=== PATIENT | female | born 1945 | race Caucasian/White ===

== ENCOUNTER 2018-01-30 07:25 | Outpatient (CLI) | payer MEDICARE, SELFPAY ==
[2018-01-30] VITALS (11 sets, daily range): BP systolic 102–157; BP diastolic 46–80; PULSE 64–81; RESP 16–18; TEMP 36.4; O2SAT 99–100
--- NOTE | 2018-01-30 07:27 | DI.RAD.S_ITS ---
PROCEDURE: PAIN L/SI FACET INJ/BLK 1STL INDICATIONS: Bilateral L3/4, L4/5 facet inj, scoli w/Facet Arthropathy FINDINGS: Fluoroscopic spot filming was performed to verify placement of spinal needles at the L3-4 and L4-5 level(s), as labeled on the films. Appropriate location(s) of the needle tip(s) was confirmed by injection of iodinated contrast. IMPRESSION: Image documentation of needle injections at L3-4 and L4-5. Dictated by: Lui Lagunas M.D. on 01/30/2018 at 16:20 Approved by: Lui Lagunas M.D. on 01/30/2018 at 16:21
--- NOTE | 2018-01-30 08:08 | PM.PROC.1 ---
Procedures Date/Time Date of procedure: 01/30/18 Time of procedure: 08:08 General Procedure description: PREOP DIAGNOSIS 1. FACET ARTHROPATHY 2. AXIAL LBP 3. MULTILEVEL DDD POST OP DIAGNOSIS 1. FACET ARTHROPATHY 2. AXIAL LBP 3. MULTILEVEL DDD PROCEDURES 1. FLUORSCOPICALLY GUIDED CONTRAST CONTROLLED FACET JOINT INJECTIONS BILATERAL L3/4, L4/5 PHYSICIAN: Juan Carlos Rosario DO INDICATIONS: is referred by Dr. Cunha for treatment of Axial LBP FINDINGS Multilevel Facet Arthropathy with Clinically significant axial LBP DESCRIPTION OF PROCEDURE Fluoroscopically guided, contrast-controlled bilateral L3/4, L4/5 facet joint injections. Following denial of allergy and review of potential side effects and complications, including, but not necessarily limited to, infection, allergic reaction, local tissue breakdown, stroke, temporary or permanent nerve injury, paralysis, and possible , the patient indicated that the patient understood and agreed to proceed. An informed consent document was signed by the patient, witnessed by a nurse, and placed in the patient's chart. Additionally, other treatment options including medications, modalities, and physical therapy were reviewed with the patient. Per the patient request, IV conscious sedation was administered via 4mg of Versed to patient comfort. The patient's vital signs were monitored throughout the procedure by both the nurse and the physician without significant fluctuation. The patient remained conversant throughout the procedure. In the prone position, following sterile prep and drape of the lumbar region, the posterior aspect of the L3/4, L4/5 facet joints were identified fluoroscopically. The skin was anesthetized via a 25-gauge 1.5-inch needle with 1% lidocaine solution into the corresponding facet joints. At this point, a 22-gauge 3.5-inch spinal needle was atraumatically introduced and advanced under fluoroscopic guidance into the corresponding facet joints. Following negative aspiration, injections of approximately 0.2-cc of Isovue 200 confirmed interarticular placement without vascular uptake. The identical procedure was then performed at the L3/4, L4/5 facet joints on the left. Radiological data, including multiple fluoroscopic views of the lumbosacral spine, reveal a spinal needle at the L3/4, L4/5 facet joints bilaterally. Subsequent views show flow of contrast material both superiorly and inferiorly within the joint space without vascular or intrathecal uptake. At this point, a total of 0.5 cc including a mixture of 0.25 cc Marcaine and 0.25 cc betamethasone was injected without complication into each of the corresponding facet joints. The patient was then transferred to the recovery area where they were observed for an appropriate period of time after the injection. The patient reported a VAS score of 7 prior to the procedure and a post-procedure VAS of 0. Total Fluoroscopy Time: 29 seconds Total Conscious Sedation Time: 24min POST OP INSTRUCTIONS The patient was provided a Pain Log to continue to record their response to the target-specific procedure prior to follow-up visit with their referring physician. Additionally, specific post-injection care instructions and a contact number to our office were provided if concerns arise regarding possible complications associated with the procedure are suspected. Juan Carlos Rosario, Complications: none
[2018-01-30] MEDS: IOPAMIDOL 15 ML VIAL INJ (08:44)
[2018-01-30] MEDS: BETAMETHASONE 30 MG/5 ML MDV 12 MG INJ (08:44)
[2018-01-30] MEDS: BUPIVACAINE 0.25% (PF) 30 ML VIAL 5 ML INJ (08:44)
[2018-01-30] MEDS: LIDOCAINE 1% 20 ML INJ 10 ML INJ (08:44)
[2018-01-30] MEDS: MIDAZOLAM 5 MG/5 ML VIAL IV (09:22)
== END 2018-01-30 09:35 ==
PROVIDERS: PCP Family Medicine; Visit Provider Physical Medicine & Rehabilitation
DX: M41.26 Other idiopathic scoliosis, lumbar region (principal); M47.816 Spondylosis without myelopathy or radiculopathy, lumbar region; M51.36 Other intervertebral disc degeneration, lumbar region
CPT/HCPCS: 64493; 99152; 99153; J0702; J2250

== ENCOUNTER → 2018-02-26 08:59 | Outpatient (CLI) | payer MEDICARE, SELFPAY ==
[2018-02-26 11:30] LABS: Vitamin B12 595 pg/mL (239-931)
[2018-02-28 22:29] LABS: Albumin 3.4 g/dL (3.8-4.8); Alpha 1 Globulin 0.4 g/dL (0.2-0.3); Alpha 2 Globulin 0.8 g/dL (0.5-0.9); Beta 1 Globulin 0.4 g/dL (0.4-0.6); Gamma Globulin 0.7 g/dL (0.8-1.7); Protein, Total 6.1 g/dL (6.1-8.1)
[2018-03-04 14:17] LABS: Rapid Plasma Reagin NON-REACTIVE
== END ==
PROVIDERS: PCP Family Medicine; Visit Provider Psychiatry & Neurology Neurology
DX: R20.2 Paresthesia of skin (principal); M79.609 Pain in unspecified limb
CPT/HCPCS: 36415; 82607; 84155; 84165; 86592

== ENCOUNTER 2018-03-13 08:23 | Day surgery (SDC) | payer MEDICARE, SELFPAY ==
--- NOTE | 2018-03-08 17:20 | PM.PREOP ---
Pre-operative Note Interval Note Pre-op Check: History & Physical Reviewed by Physician
[2018-03-13 09:23] VITALS: BP 155/65; PULSE 96; RESP 16; TEMP 36.7; O2SAT 98
[2018-03-13 09:24] VITALS: BMI 18.1
[2018-03-13] MEDS: CATARACT EYE COMPOUND (10 DROPS/SYRINGE) 3 DROPS EYE-OP (09:44)
--- NOTE | 2018-03-13 10:09 | PM.PREOP ---
Pre-operative Note Interval Note Pre-op Check: History & Physical Reviewed by Physician H&P completed within 30 days and has changed as indicated here:: Had left sinus and eye pain two days ago and started on Azithromycin 250 milligrams twice the first day and now daily. Is on day number 3 of 5 days. Symptoms improved. Has multiple allegies.
[2018-03-13] MEDS: CARBACHOL 1.5 ML VIAL INJ (10:42)
[2018-03-13] MEDS: BALANCED SALT IRRIG SOLN NO.2 15 ML IRRIG.SOLN IRR (10:42)
[2018-03-13] MEDS: CHONDROIDTIN/SOD HYALURONATE 1.05 ML SYRINGE INTRAOCULA (10:43)
[2018-03-13] MEDS: PHENYLEPHRINE/LIDOCAINE 3ML VIAL (OR) EYE-OP (10:43)
[2018-03-13] MEDS: HYALURONATE SODIUM 10 MG/ML SYRINGE INJ (10:43)
[2018-03-13] MEDS: BALANCED SALT IRRIG SOLN NO.2 500 ML, EPINEPHrine 1 MG IRR (10:44)
[2018-03-13] MEDS: MOXIFLOXACIN OPHTH DROPS 3 ML BOTTLE 2 DROPS INJ (10:51)
[2018-03-13] MEDS: TOBRA/DEX 0.3%/0.1% OPHTH OINT 1 APPLIC EYE-LEFT (10:51)
[2018-03-13] MEDS: LIDOCAINE 2% 4 ML, BUPIVACAINE 0.5% (PF) 4 ML, HYALURONIDASE 150 UNIT INJ (10:52)
[2018-03-13] MEDS: TRIAMCINOLONE 50 MG/5 ML VIAL INJ (10:52)
[2018-03-13 11:11] VITALS: BP 144/69; PULSE 68; RESP 16; TEMP 36; O2SAT 100
--- NOTE | 2018-03-13 11:26 | SUR.PHASEII ---
Remains drowsy on discharge, but desires discharge home. Daughter and here to assist.
--- NOTE | 2018-03-13 20:34 | PM.PROC.1 ---
Procedures Date/Time Date of procedure: 03/13/18 Time of procedure: 10:34 General Procedure description: Date of service: March 13, 2000 Preoperative diagnoses: 1. 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 Atypica mycobacterial infection of the lung, treated with long course of ethambutol. 3. Childhood rheumatic fever Multiple severe allergies especially to preservatives. 5. Trigeminal neuralgia. 6. Possible sinus infection treated. Postoperative diagnoses: 1. Cataract surgery posterior chamber intraocular lens implant and phacoemulsification. Procedure: Phacoemulsification with posterior chamber intraocular lens implant Surgeon: Nava Martinez MD Complications: None Specimen: None Implant: +21.5 Blood loss: None Anesthesia: Retrobulbar with monitored standby Anesthesiologist: Delia Brian Description of procedure: Patient is a 72 year old female with decreased vision due to cataract which is affecting activities of daily living. She wants surgery to improve vision. She has multiple and severe allergies in all charts reviewed and it was determined that she could tolerate the medications to be given in surgery. She has taken to the operating room and given IV sedation. A retrobulbar block insert consisting of 6 cc of 2% xylocaine without epinephrine or preservatives mixed half and half with 0.5% Marcaine PF with 1 cc of hyaluronidase added is placed between the medial and lateral 1/3 of the inferior orbital rim. Lid akinesia is obtain with 1% xylocaine with epinephrine infiltrated along the lid margin. The eye is manually massaged for 30 sec, prepped using Betadine solution, and draped in the usual sterile fashion. Temporal approach was made, a 1 mm side-port incision was made at the 12 oclock meridian. Phenylephrine 1.5% mixed with 1% xylocaine 0.2 cc was placed into the anterior chamber. Viscoat followed by Healon was then placed. A 2.6 mm clear incision with a 2.6 mm blade was placed at the 3 oclock meridian. A 360 degree capsulorrhexis style capsulotomy was then performed with a cystitome needle on a Healon. the anterior polar plaque was lifted and the capsulrhexis remained intact. Hydrodelineation and hydrodissection were performed. The phacoemulsification unit is introduced, and sculpting notice used to groove the central lens. It is then removed in chopping mode. Epi nucleus is removed with epinuclear mode and irrigation aspiration was used to remove the peripheral cortex. No capsular polishing was performed due to risk of posterior polar plaque. The intraocular lens is selected, inspected, power confirmed, and placed in the posterior chamber. All residual cortex is then removed with the implant in place to protect the capsule. The pupil was constricted. The wound was stromally hydrated and tested for leaks, there was none and was left sutureless. Vigamox 0.1 cc was placed into the anterior chamber. Kenalog 0.2 cc was placed in the superior subconjunctival space. A drop of antibiotic and was placed and the eye was patched and shielded. The patient was stable and returned to the recovery room in excellent condition. Dictated by: Nava Martinez MD Copy to: [facility]
== END 2018-03-13 11:31 | disposition home or self-care (01) ==
LOC: OR 08:24
PROVIDERS: PCP Family Medicine; Visit Provider Ophthalmology
DX: H25.12 Age-related nuclear cataract, left eye (principal)
CPT/HCPCS: J0171; J1200; J2704; J3301; J3470

== ENCOUNTER 2018-03-27 08:30 | Day surgery (SDC) | payer MEDICARE, SELFPAY ==
--- NOTE | 2018-03-27 07:45 | PM.PREOP ---
Pre-operative Note Interval Note Pre-op Check: Yes History & Physical Reviewed by Physician Changes: No
--- NOTE | 2018-03-27 07:47 | P.OP_ITS ---
Operative Date/Time/Diagnoses Date of procedure: 03/27/18 Time of procedure: 09:00 Procedure & Clinicians Procedure: Date of service: March 27, 2018 Preoperative diagnoses: 1. Right nuclear sclerotic and cortical Cataract, Congenital anterior polar catarat. 2. Multiple allergies Postoperative diagnoses: 1. Cataract removal with phacoemulsification and posterior chamber intraocular lens implant. Procedure: Phacoemulsification with posterior chamber intraocular lens implant Surgeon: Nava Martinez MD Complications: None Specimen: None Implant:ZCBOO +20.5 Blood loss: None Anesthesia: Retrobulbar with monitored standby Anesthesiologist: Darshan Long M.D. Description of procedure: Patient is a female year old with decreased vision due to cataract which is affecting activities of daily living. She wants surgery to improve vision. She has multiple allergies. She was taken to the operating room and given IV sedation. A retrobulbar block insert consisting of 6 cc of 2% xylocaine without epinephrine mixed half and half with 0.5% Marcaine with 1 cc of hyaluronidase added is placed between the medial and lateral 1/3 of the inferior orbital rim. The eye is manually massaged for 30 sec, prepped using Betadine solution, and draped in the usual sterile fashion. Temporal approach was made, a 1 mm side-port incision was made at the 7:30 position. Phenylephrine 1.5% mixed with 1% xylocaine 0.2 cc was placed into the anterior chamber. Viscoat followed by Healon was then placed. A 2.6 mm clear incision with a 2.6 mm blade was placed at the 170 degree meridian. A 360 degree capsulorrhexis style capsulotomy was then performed with a cystitome needle on a Healon. The anterior polar cataract came off in a complete membrane. No residual present. Hydrodelineation and hydrodissection were performed. The phacoemulsification unit is introduced, and sculpting notice used to groove the central lens. It is then removed in chopping mode. Epi nucleus is removed with epinuclear mode and irrigation aspiration was used to remove the peripheral cortex. The posterior capsule is polished mildly. No posterior polar cataract was present. The intraocular lens is selected, inspected, power confirmed, and placed in the posterior chamber. The pupil was constricted. The wound was strongly hydrated and tested for leaks, there was none [] left sutureless. Vigamox 0.1 cc was placed into the anterior chamber. Kenalog 0.2 cc was placed in the superior subconjunctival space. Tobrdadex ointment antibiotic was placed and the eye was patched and shielded. The patient was stable and returned to the recovery room in excellent condition. Dictated by: Nava Martinez MD Copy to: [facility] Same procedure as scheduled: Yes
--- NOTE | 2018-03-27 07:47 | PM.PREOP ---
Pre-operative Note Interval Note Changes: No H&P completed within 30 days and has changed as indicated here:: Multiple reactions to medications.
--- NOTE | 2018-03-27 07:48 | PM.PREOP ---
Pre-operative Note Interval Note Pre-op Check: Yes History & Physical Reviewed by Physician Changes: No H&P completed within 30 days and has changed as indicated here:: Miltiple allergies. Stable
[2018-03-27 09:00] VITALS: BP 108/69; PULSE 88; RESP 16; TEMP 36.3; O2SAT 98; BMI 18.6
[2018-03-27] MEDS: CATARACT EYE COMPOUND (10 DROPS/SYRINGE) 3 DROPS EYE-OP (09:10)
--- NOTE | 2018-03-27 09:34 | SUR.PREOP ---
pt given 2 drops of xylocaine 1% mpf to right eye per written order by Dr. Martinez at 0905
[2018-03-27] MEDS: LIDOCAINE 2% 4 ML, BUPIVACAINE 0.5% (PF) 4 ML, HYALURONIDASE 150 UNIT INJ (10:16)
[2018-03-27] MEDS: CHONDROIDTIN/SOD HYALURONATE 1.05 ML SYRINGE INTRAOCULA (10:33)
[2018-03-27] MEDS: CARBACHOL 1.5 ML VIAL INJ (10:33)
[2018-03-27] MEDS: BALANCED SALT IRRIG SOLN NO.2 15 ML IRRIG.SOLN IRR (10:33)
[2018-03-27] MEDS: MOXIFLOXACIN OPHTH DROPS 3 ML BOTTLE 2 DROPS INJ (10:36)
[2018-03-27] MEDS: PHENYLEPHRINE/LIDOCAINE 3ML VIAL (OR) EYE-OP (10:37)
[2018-03-27] MEDS: TRIAMCINOLONE 50 MG/5 ML VIAL INJ (10:39)
[2018-03-27] MEDS: BALANCED SALT IRRIG SOLN NO.2 500 ML, EPINEPHrine 1 MG IRR (10:40)
[2018-03-27] MEDS: TOBRA/DEX 0.3%/0.1% OPHTH OINT 1 APPLIC EYE-RIGHT (10:42)
[2018-03-27 12:34] VITALS: BP 133/70; PULSE 69; RESP 15; TEMP 36.3; O2SAT 98
== END 2018-03-27 11:28 | disposition home or self-care (01) ==
LOC: OR 08:31
PROVIDERS: PCP Family Medicine; Visit Provider Ophthalmology
DX: H25.11 Age-related nuclear cataract, right eye (principal)
CPT/HCPCS: J0171; J2704; J3010; J3301; J3470

== ENCOUNTER 2018-04-03 12:15 | Outpatient (RCR) | payer MEDICARE, SELFPAY ==
--- NOTE | 2018-02-07 10:28 | PT.OIE ---
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) Pelvic and perineal pain (02/05/18) Provider Visit Care Team Role Provider Type Colt Starr MD Primary Care Provider Physician Specialty: Family Practice Address: [address] [place], [address] Email: Leilani Brady MD Attending Provider Physician Specialty: BRINE ROOM LABORER Address: [address] [place] [address], [address] Email: [email or web address] Physical Therapy Initial Evaluation PT-OP-A Visit Information Start: 02/07/18 09:50 Freq: Status: Active Protocol: Document 02/05/18 09:51 [facility] (Rec: 02/07/18 10:00 [facility] [email or web address]) Out-Patient Physical Therapy Visit Information Visit Information Visit Type Initial Evaluation Visit Start Time 11:15 Visit Stop Time 12:00 Total Visit Minutes 45 Visit Number 1 Number of WELDER APPRENTICE COMBINATION Visits 0 PT-OP-B Current Condition Start: 02/07/18 09:50 Freq: Status: Active Protocol: Document 02/05/18 09:51 [facility] (Rec: 02/07/18 10:00 [facility] [email or web address]) Current Condition History of Current Condition Onset Date complaints of pelvic pain for over 1 year Current Complaints c/o pelvic pain, pressure, burning pain in the vaginal opening History of Current Condition 72 year old female who began noticing complaints of pelvic heavyness and cramping as well as burning pain in the vaginal region last april. SHe was given vaginal estrogen but notes that was not helping. SHe was seen by Dr. Brady on 12/28/17 and was given a compound formula of amitriptyline,gabapentin, baclofen, and vulvodynia cream . She reports not noticing any difference yet on this cream. 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 She notes this is her third injection and the first two gave her relief but this one actually aggravated her left leg and now she is getting nerve pain in the left leg as well. Treatment Goals Patient/Caregiver Goals the patients goals include strengthening the pelvic floor and decreasing both burning pain as well as cramping PT-OP-I Pelvic Floor Start: 02/07/18 09:50 Freq: Status: Active Protocol: Document 02/05/18 10:09 [facility] (Rec: 02/07/18 10:28 [facility] [email or web address]) Pelvic Floor Assessment Urine Pelvic Floor Surgery No Urinary Symptoms Falling Out Feeling/Heavy Pain Other Urinary Symptoms burning pain reported but does not change with voiding Pelvic Clock Pelvic Clock 12-3 Atrophy Pelvic Clock 3-6 Atrophy Pelvic Clock 6-9 Atrophy Pelvic Clock 9-12 Atrophy Pelvic Clock Other tenderness to palpation at the vestibule and external urethral orifice. There was no tenderness at the urethra with internal exam. The bladder was felt to be prolapsed. Atrophy is noted to palpation of the lateral majano of the levator ani. Prolapse Cystocele Grade 2 SEMG (uV) 10 Second Contraction 6 Recruitment Pattern Poor/Slow Relaxation Good Holding Poor/Slow Stability of Hold Poor/Slow SEMG Stability of Rest Good Contraction Ability Voluntary Contraction Weak Manual Muscle Testing Left 2 Manual Muscle Testing Right 2 Manual Muscle Testing Anterior 2 Manual Muscle Testing Posterior 2 PT-OP-Q Treatments Start: 02/07/18 09:50 Freq: Status: Active Protocol: Document 02/05/18 10:09 [facility] (Rec: 02/07/18 10:28 [facility] [email or web address]) Therapeutic Exercises Supine Exercises 2 Supine Exercise Name single knee to chest Side bilateral 1 Supine Exercise Name pelvic floor holds x 5 seconds Side bilateral Sidelying Exercises 1 Sidelying Exercise Name clam shells Side bilateral Reps/Minutes 2 sets of 10 reps PT-OP-T Assessment and Plan Start: 02/07/18 09:50 Freq: Status: Active Protocol: Document 02/05/18 10:09 [facility] (Rec: 02/07/18 10:28 [facility] [email or web address]) Physical Therapy Assessment Rehab Potential Rehabilitation Potential Good Evaluation Complexity Number of Personal Factors/Comorbidities 0 Number of Body Systems Impaired 1-2 Clinical Presentation at Evaluation Stable Impairments Impairments Activity Tolerance Pain Soft Tissue Mobility Strength Tone Goals Four Impairment Decreased endurance of the pelvic floor Short Term Goal (STG) improve endurance of the pelvic floor to 10 second hold time or greater STG Duration 5 weeks Three Impairment pelvic floor weakness with MMT 2/5 Strategic Buyer Goal (LTG) Improve strength of the levator with pelvic floor strengthening utilizing EMG biofeedback Two Impairment pelvic organ prolapse with complaints of pelvic cramping and heavyness Strategic Buyer Goal (LTG) Improve pelvic floor strength to decrease complaints of pelvic cramping and heavyness and to provide a increased shelf of support for the pelvic organs LTG Duration 8 weeks One Impairment burning pain at the vestibule region and external urethral orifice Strategic Buyer Goal (LTG) Bella reports decreased complaints of burning pain in the vaginal area LTG Duration 8 weeks Assessment Summary Assessment Bella presents to physical therapy with symptoms of pelvic organ prolapse, pelvic floor weakness and buring type pain in the vestibule region and external urethral orifice. I was unable to reproduce her pain with internal exam but with external exam she was sensitive to palpation. She is very weak in her pelvic floor and the cystocele may be contributing to her burning type pain. She also has a low back involvement and she reports she almost didn't make it to her new evaluation appointment today due to severe back pain with sciatica on the left. Treatment will focus on stretches for the low back and pelvis as well as gentle pelvic floor strengthening and neuro re- education of the pelvic floor Physical Therapy Plan Frequency and Duration Frequency of Treatment 1x/Week Duration of Treatment 8 weeks Plan of Care Start Date 02/05/18 Plan of Care End Date 03/26/18 Therapeutic Interventions Therapeutic Interventions Home Exercise Program Manual Therapy Neuromuscular Re-education Patient/Caregiver Education Soft Tissue Mobilization Therapeutic Exercises Modalities Biofeedback Hot Packs Please Sign and Return: I have reviewed this Plan of Care and certify that the skilled therapy services above are required to meet the patient?s needs. Physician Signature Date Printed Name and Credentials Clinical Instructor Signature Printed Name and Credentials
--- NOTE | 2018-02-07 10:30 | PT.OPPOC ---
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) Pelvic and perineal pain (02/05/18) Provider Visit Care Team Role Provider Type Colt Starr MD Primary Care Provider Physician Specialty: Family Practice Address: [address] [place], [address] Email: Leilani Brady MD Attending Provider Physician Specialty: HYGIENE COORDINATOR Address: [address] [place] [address], [address] Email: [email or web address] Plan Of Care PT-OP-T Assessment and Plan Start: 02/07/18 09:50 Freq: Status: Active Protocol: Document 02/05/18 10:09 [facility] (Rec: 02/07/18 10:28 [facility] [email or web address]) Physical Therapy Assessment Rehab Potential Rehabilitation Potential Good Evaluation Complexity Number of Personal Factors/Comorbidities 0 Number of Body Systems Impaired 1-2 Clinical Presentation at Evaluation Stable Impairments Impairments Activity Tolerance Pain Soft Tissue Mobility Strength Tone Goals Four Impairment Decreased endurance of the pelvic floor Short Term Goal (STG) improve endurance of the pelvic floor to 10 second hold time or greater STG Duration 5 weeks Three Impairment pelvic floor weakness with MMT 2/5 Hydrogen Power Plant Engineer Goal (LTG) Improve strength of the levator with pelvic floor strengthening utilizing EMG biofeedback Two Impairment pelvic organ prolapse with complaints of pelvic cramping and heavyness Hydrogen Power Plant Engineer Goal (LTG) Improve pelvic floor strength to decrease complaints of pelvic cramping and heavyness and to provide a increased shelf of support for the pelvic organs LTG Duration 8 weeks One Impairment burning pain at the vestiblule region and external urethral orifice Hydrogen Power Plant Engineer Goal (LTG) Bella reports decreased complaints of buring pain in the vaginal area LTG Duration 8 weeks Assessment Summary Assessment Bella presents to physical therapy with symptoms of pelvic organ prolapse, pelvic floor weakness and buring type pain in the vestibule region and external urethral orifice. I was unable to reproduce her pain with internal exam but with external exam she was sensitive to palpation. She is very weak in her pelvic floor and the cystecele may be contributing to her buring type pain. She also has a low back involvement and she reports she almost didn't make it to her new evaluation appointment today due to severe back pain with sciatica on the left. Treatment will focus on stretches for the low back and pelvis as well as gentle pelvic floor strengthening and neuro re- education of the pelvic floor Physical Therapy Plan Frequency and Duration Frequency of Treatment 1x/Week Duration of Treatment 8 weeks Plan of Care Start Date 02/05/18 Plan of Care End Date 03/26/18 Therapeutic Interventions Therapeutic Interventions Home Exercise Program Manual Therapy Neuromuscular Re-education Patient/Caregiver Education Soft Tissue Mobilization Therapeutic Exercises Modalities Biofeedback Hot Packs Plan of Care Dates Plan of Care Start Date 02/05/18 Plan of Care End Date 03/26/18 Please Sign and Return: I have reviewed this Plan of Care and certify that the skilled therapy services above are required to meet the patient?s needs. Physician Signature Date Printed Name and Credentials Clinical Instructor Signature Printed Name and Credentials
--- NOTE | 2018-02-28 17:48 | PT.OTN ---
Current Diagnoses Incomplete uterovaginal prolapse (02/27/18) Vulvodynia, unspecified (02/27/18) Pelvic and perineal pain (02/27/18) Physical Therapy Treatment Note PT-OP-A Visit Information Start: 02/07/18 09:50 Freq: Status: Active Protocol: Document 02/27/18 10:45 [facility] (Rec: 02/28/18 17:48 [facility] [email or web address]) Out-Patient Physical Therapy Visit Information Visit Information Visit Type Treatment Note Visit Start Time 10:45 Visit Stop Time 11:30 Total Visit Minutes 45 Visit Number 2 Number of MOTOR VEHICLE CLERK Visits 0 PT-OP-B Current Condition Start: 02/07/18 09:50 Freq: Status: Active Protocol: Document 02/05/18 09:51 [facility] (Rec: 02/07/18 10:00 [facility] [email or web address]) Current Condition History of Current Condition Onset Date complaints of pelvic pain for over 1 year Current Complaints c/o pelvic pain, pressure, burning pain in the vaginal opening History of Current Condition 72 year old female who began noticing complaints of pelvic heavyness and cramping as well as burning pain in the vaginal region last april. SHe was given vaginal estrogen but notes that was not helping. SHe was seen by Dr. Brady on 12/28/17 and was given a compound formula of amitriptyline,gabapentin, baclofen, and vulvodynia cream . She reports not noticing any difference yet on this cream. 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 She notes this is her third injection and the first two gave her relief but this one actually aggravated her left leg and now she is getting nerve pain in the left leg as well. Treatment Goals Patient/Caregiver Goals the patients goals include strengthening the pelvic floor and decreasing both burning pain as well as cramping PT-OP-C Subjective Start: 02/07/18 09:50 Freq: Status: Active Protocol: Document 02/27/18 10:45 [facility] (Rec: 02/28/18 17:48 [facility] [email or web address]) OP-PT Subjective Patient Comments Patient Comments Bella reports she has decreased complaints of the burning pain now. The pain is comming in twinges now but not as bad as it was. She reports it is difficult to know if she is fully relaxing inbetween pelvic floor contractions PT-OP-I Pelvic Floor Start: 02/07/18 09:50 Freq: Status: Active Protocol: Document 02/27/18 10:45 [facility] (Rec: 02/28/18 17:48 [facility] [email or web address]) Pelvic Floor Assessment SEMG (uV) Baseline 0 10 Second Contraction 9.8 Recruitment Pattern Good PT-OP-Q Treatments Start: 02/07/18 09:50 Freq: Status: Active Protocol: Document 02/27/18 10:45 [facility] (Rec: 02/28/18 17:48 [facility] [email or web address]) Therapeutic Exercises Supine Exercises 4 Supine Exercise Name hip flexion stretch in jenn test position 3 Supine Exercise Name modified squat stretch 2 Supine Exercise Name single knee to chest Side bilateral 1 Supine Exercise Name pelvic floor holds x 10 seconds Side bilateral Sidelying Exercises 1 Sidelying Exercise Name clam shells Side bilateral Reps/Minutes 2 sets of 10 reps Manual Therapy Treatment Soft Tissue Mobilization 1 Body Location abdominal fascia Comments STM of the abdominal fascia and bladder mobilizations in supine PT-OP-T Assessment and Plan Start: 02/07/18 09:50 Freq: Status: Active Protocol: Document 02/27/18 10:45 [facility] (Rec: 02/28/18 17:48 [facility] [email or web address]) Physical Therapy Assessment Assessment Summary Assessment improved resting tond of the pelvic floor today and decreasing complaints of pain Physical Therapy Plan Frequency and Duration Frequency of Treatment 1x/Week Duration of Treatment 8 weeks Plan of Care Start Date 02/05/18 Plan of Care End Date 03/26/18 Therapeutic Interventions Therapeutic Interventions Home Exercise Program Manual Therapy Neuromuscular Re-education Patient/Caregiver Education Soft Tissue Mobilization Therapeutic Exercises Modalities Biofeedback Hot Packs Next Visit Focus/Plan Next Visit Plan focus on improving pelvic floor strength to improve bladder support
--- NOTE | 2018-03-12 17:37 | PT.OTN ---
Current Diagnoses Incomplete uterovaginal prolapse (03/12/18) Vulvodynia, unspecified (03/12/18) Pelvic and perineal pain (03/12/18) Physical Therapy Treatment Note PT-OP-A Visit Information Start: 02/07/18 09:50 Freq: Status: Active Protocol: Document 03/12/18 17:28 [facility] (Rec: 03/12/18 17:36 [facility] [email or web address]) Out-Patient Physical Therapy Visit Information Visit Information Visit Type Treatment Note Visit Start Time 09:45 Visit Stop Time 10:30 Total Visit Minutes 45 Visit Number 3 Number of WASHING MACHINE REPAIRER Visits 0 PT-OP-B Current Condition Start: 02/07/18 09:50 Freq: Status: Active Protocol: Document 02/05/18 09:51 [facility] (Rec: 02/07/18 10:00 [facility] [email or web address]) Current Condition History of Current Condition Onset Date complaints of pelvic pain for over 1 year Current Complaints c/o pelvic pain, pressure, burning pain in the vaginal opening History of Current Condition 72 year old female who began noticing complaints of pelvic heavyness and cramping as well as burning pain in the vaginal region last april. SHe was given vaginal estrogen but notes that was not helping. SHe was seen by Dr. Brady on 12/28/17 and was given a compound formula of amitriptyline,gabapentin, baclofen, and vulvodynia cream . She reports not noticing any difference yet on this cream. 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 She notes this is her third injection and the first two gave her relief but this one actually aggravated her left leg and now she is getting nerve pain in the left leg as well. Treatment Goals Patient/Caregiver Goals the patients goals include strengthening the pelvic floor and decreasing both burning pain as well as cramping PT-OP-C Subjective Start: 02/07/18 09:50 Freq: Status: Active Protocol: Document 03/12/18 17:28 [facility] (Rec: 03/12/18 17:36 [facility] [email or web address]) OP-PT Subjective Patient Comments Patient Comments buring pain is decreased but she is still feeling it when her bladder is full PT-OP-I Pelvic Floor Start: 02/07/18 09:50 Freq: Status: Active Protocol: Document 02/27/18 10:45 [facility] (Rec: 02/28/18 17:48 [facility] [email or web address]) Pelvic Floor Assessment SEMG (uV) Baseline 0 10 Second Contraction 9.8 Recruitment Pattern Good PT-OP-Q Treatments Start: 02/07/18 09:50 Freq: Status: Active Protocol: Document 03/12/18 17:28 [facility] (Rec: 03/12/18 17:36 [facility] [email or web address]) Therapeutic Exercises Supine Exercises 5 Supine Exercise Name adductor stretch Comments legs up the wall hold 1-2 minutes 4 Supine Exercise Name hip flexion stretch in jenn test position 3 Supine Exercise Name modified squat stretch 2 Supine Exercise Name single knee to chest Side bilateral Manual Therapy Treatment Soft Tissue Mobilization 2 Body Location adductor release Comments bilateral adductor release 1 Body Location abdominal fascia Comments STM of the abdominal fascia and bladder mobilizations in supine PT-OP-T Assessment and Plan Start: 02/07/18 09:50 Freq: Status: Active Protocol: Document 03/12/18 17:28 [facility] (Rec: 03/12/18 17:36 [facility] [email or web address]) Physical Therapy Assessment Assessment Summary Assessment adductor tightness found today bilaterally L>R Physical Therapy Plan Frequency and Duration Frequency of Treatment 1x/Week Duration of Treatment 8 weeks Plan of Care Start Date 02/05/18 Plan of Care End Date 03/26/18 Therapeutic Interventions Therapeutic Interventions Home Exercise Program Manual Therapy Neuromuscular Re-education Patient/Caregiver Education Soft Tissue Mobilization Therapeutic Exercises Modalities Biofeedback Hot Packs Next Visit Focus/Plan Next Note Type Treatment Note Next Visit Plan focus on improving pelvic floor strength to improve bladder support
--- NOTE | 2018-03-20 11:53 | PT.OTN ---
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) Pelvic and perineal pain (03/20/18) Physical Therapy Treatment Note PT-OP-A Visit Information Start: 02/07/18 09:50 Freq: Status: Active Protocol: Document 03/20/18 11:46 [facility] (Rec: 03/20/18 11:53 [facility] [email or web address]) Out-Patient Physical Therapy Visit Information Visit Information Visit Type Progress Note Visit Start Time 10:45 Visit Stop Time 11:30 Total Visit Minutes 45 Visit Number 4 Number of ELECTRONIC PAGINATION SYSTEM OPERATOR Visits 0 PT-OP-B Current Condition Start: 02/07/18 09:50 Freq: Status: Active Protocol: Document 02/05/18 09:51 [facility] (Rec: 02/07/18 10:00 [facility] [email or web address]) Current Condition History of Current Condition Onset Date complaints of pelvic pain for over 1 year Current Complaints c/o pelvic pain, pressure, burning pain in the vaginal opening History of Current Condition 72 year old female who began noticing complaints of pelvic heavyness and cramping as well as burning pain in the vaginal region last april. SHe was given vaginal estrogen but notes that was not helping. SHe was seen by Dr. Brady on 12/28/17 and was given a compound formula of amitriptyline,gabapentin, baclofen, and vulvodynia cream . She reports not noticing any difference yet on this cream. 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 She notes this is her third injection and the first two gave her relief but this one actually aggravated her left leg and now she is getting nerve pain in the left leg as well. Treatment Goals Patient/Caregiver Goals the patients goals include strengthening the pelvic floor and decreasing both burning pain as well as cramping PT-OP-C Subjective Start: 02/07/18 09:50 Freq: Status: Active Protocol: Document 03/20/18 11:46 [facility] (Rec: 03/20/18 11:53 [facility] [email or web address]) OP-PT Subjective Patient Comments Patient Comments Bella reports she is doing much better overall. She is no longer complaining of the burning pain in the vaginal opening and she is feeling stronger with her pelvic floor muscles. She also reports she has decreased complaints of pelvic pressure. PT-OP-I Pelvic Floor Start: 02/07/18 09:50 Freq: Status: Active Protocol: Document 02/27/18 10:45 [facility] (Rec: 02/28/18 17:48 [facility] [email or web address]) Pelvic Floor Assessment SEMG (uV) Baseline 0 10 Second Contraction 9.8 Recruitment Pattern Good PT-OP-Q Treatments Start: 02/07/18 09:50 Freq: Status: Active Protocol: Document 03/20/18 11:46 [facility] (Rec: 03/20/18 11:53 [facility] [email or web address]) Therapeutic Exercises Supine Exercises 7 Supine Exercise Name templates for eccentric control and coordination Reps/Minutes 8 minutes 6 Supine Exercise Name roll outs with theraband Reps/Minutes 2 x 10 reps 4 Supine Exercise Name hip flexion stretch in jenn test position 3 Supine Exercise Name modified squat stretch 1 Supine Exercise Name pelvic floor holds x 10 seconds Side bilateral Sidelying Exercises 1 Sidelying Exercise Name clam shells Side bilateral Reps/Minutes 2 sets of 10 reps Comments tender on left hip today Manual Therapy Treatment Soft Tissue Mobilization 1 Body Location abdominal fascia Comments STM of the abdominal fascia and bladder mobilizations in supine PT-OP-T Assessment and Plan Start: 02/07/18 09:50 Freq: Status: Active Protocol: Document 03/20/18 11:46 [facility] (Rec: 03/20/18 11:53 [facility] [email or web address]) Physical Therapy Assessment Progress Towards Goals Progress Towards Goals Progressing Toward Goals Assessment Summary Assessment Bella is making steady progress towards her goals. Her EMG reading started at 5.95 uv average and is now 9.23 average for 10 second holds. She is holding closer to 10 seconds now in supine. Her complaints of burning pain is no longer present and pressure from the pelvic organ prolapse is decreasing. She would benefit from continued PT working towards dynamic upright pelvic floor strengthening. Physical Therapy Plan Frequency and Duration Frequency of Treatment 1x/Week Duration of Treatment 8 weeks Plan of Care Start Date 03/20/18 Plan of Care End Date 05/14/18 Next Visit Focus/Plan Next Note Type Treatment Note Next Visit Plan focus on improving pelvic floor strength to improve bladder support
--- NOTE | 2018-03-20 11:54 | PT.OPPOC ---
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) Pelvic and perineal pain (03/20/18) Provider Visit Care Team Role Provider Type Colt Starr MD Primary Care Provider Physician Specialty: Family Practice Address: [address] [facility] [place], [address] Email: Leilani Brady MD Attending Provider Physician Specialty: CONTROL CLERK SUBASSEMBLY Address: [address] [place] [address], [id number] Email: [email or web address] Plan Of Care PT-OP-T Assessment and Plan Start: 02/07/18 09:50 Freq: Status: Active Protocol: Document 03/20/18 11:46 [facility] (Rec: 03/20/18 11:53 [facility] [email or web address]) Physical Therapy Assessment Progress Towards Goals Progress Towards Goals Progressing Toward Goals Assessment Summary Assessment Bella is making steady progress towards her goals. Her EMG reading started at 5. 95 average and are now 9.23 average for 10 second holds. She is holding closer to 10 seconds now in supine. Her complaints of burning pain is no longer present and pressure from the pelvic organ prolapse is decreasing. She would benefit from continued PT working towards dynamic upright pelvic floor strengthening. Physical Therapy Plan Frequency and Duration Frequency of Treatment 1x/Week Duration of Treatment 8 weeks Plan of Care Start Date 03/20/18 Plan of Care End Date 05/14/18 Next Visit Focus/Plan Next Note Type Treatment Note Next Visit Plan focus on improving pelvic floor strength to improve bladder support Plan of Care Dates Plan of Care Start Date 03/20/18 Plan of Care End Date 05/14/18 Please Sign and Return: I have reviewed this Plan of Care and certify that the skilled therapy services above are required to meet the patient?s needs. Physician Signature Date Printed Name and Credentials Clinical Instructor Signature Printed Name and Credentials
--- NOTE | 2018-04-03 13:37 | PT.OTN ---
Current Diagnoses Incomplete uterovaginal prolapse (04/03/18) Vulvodynia, unspecified (04/03/18) Pelvic and perineal pain (04/03/18) Physical Therapy Treatment Note PT-OP-A Visit Information Start: 02/07/18 09:50 Freq: Status: Active Protocol: Document 04/03/18 13:26 [facility] (Rec: 04/03/18 13:35 [facility] [email or web address]) Out-Patient Physical Therapy Visit Information Visit Information Visit Type Treatment Note Visit Start Time 13:00 Visit Stop Time 13:45 Total Visit Minutes 45 Visit Number 5 Number of CHILD CAREGIVER Visits 0 PT-OP-B Current Condition Start: 02/07/18 09:50 Freq: Status: Active Protocol: Document 02/05/18 09:51 [facility] (Rec: 02/07/18 10:00 [facility] [email or web address]) Current Condition History of Current Condition Onset Date complaints of pelvic pain for over 1 year Current Complaints c/o pelvic pain, pressure, burning pain in the vaginal opening History of Current Condition 72 year old female who began noticing complaints of pelvic heavyness and cramping as well as burning pain in the vaginal region last april. SHe was given vaginal estrogen but notes that was not helping. SHe was seen by Dr. Brady on 12/28/17 and was given a compound formula of amitriptyline,gabapentin, baclofen, and vulvodynia cream . She reports not noticing any difference yet on this cream. 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 She notes this is her third injection and the first two gave her relief but this one actually aggravated her left leg and now she is getting nerve pain in the left leg as well. Treatment Goals Patient/Caregiver Goals the patients goals include strengthening the pelvic floor and decreasing both burning pain as well as cramping PT-OP-C Subjective Start: 02/07/18 09:50 Freq: Status: Active Protocol: Document 04/03/18 13:26 [facility] (Rec: 04/03/18 13:35 [facility] [email or web address]) OP-PT Subjective Patient Comments Patient Comments Bella reports she is doing better overall and she feels like this could be her last PT visit PT-OP-I Pelvic Floor Start: 02/07/18 09:50 Freq: Status: Active Protocol: Document 02/27/18 10:45 [facility] (Rec: 02/28/18 17:48 [facility] [email or web address]) Pelvic Floor Assessment SEMG (uV) Baseline 0 10 Second Contraction 9.8 Recruitment Pattern Good PT-OP-Q Treatments Start: 02/07/18 09:50 Freq: Status: Active Protocol: Document 04/03/18 13:26 [facility] (Rec: 04/03/18 13:35 [facility] [email or web address]) Therapeutic Exercises Supine Exercises 7 Supine Exercise Name templates for eccentric control and coordination Reps/Minutes 8 minutes 6 Supine Exercise Name roll outs with theraband Reps/Minutes 2 x 10 reps 1 Supine Exercise Name pelvic floor holds x 10 seconds Side bilateral Other Exercises 1 Other Exercise Name sit-stand with pelvic floor activation Reps/Minutes 10 reps Manual Therapy Treatment Soft Tissue Mobilization 1 Body Location abdominal fascia Comments STM of the abdominal fascia and bladder mobilizations in supine PT-OP-T Assessment and Plan Start: 02/07/18 09:50 Freq: Status: Active Protocol: Document 04/03/18 13:26 [facility] (Rec: 04/03/18 13:35 [facility] [email or web address]) Physical Therapy Assessment Progress Towards Goals Progress Towards Goals Goals Met Assessment Summary Assessment Good overall progress with PT. Bella has decreased complaints of symptoms overall and pelvic floor strength is much improved. She will be discharged from PT at this time Physical Therapy Plan Discharge Physical Therapy Discharge Reasons Goals Met Discharge Comments Bella reports she feels independent with her home program and she has met all her established goals
== END 2018-05-03 11:09 ==
LOC: PHYS 12:15
PROVIDERS: PCP Family Medicine; Visit Provider Specialist
DX: N81.2 Incomplete uterovaginal prolapse (principal); R10.2 Pelvic and perineal pain; N94.819 Vulvodynia, unspecified
CPT/HCPCS: 97110; 97140; 97161

== ENCOUNTER 2018-04-16 11:27 | Outpatient (CLI) | payer MEDICARE, SELFPAY ==
--- NOTE | 2018-04-16 11:29 | DI.RAD.S_ITS ---
PROCEDURE: PAIN L/S TRANSFORAMINAL INJECT INDICATIONS: LUMBAR REGION SPINAL STENOSIS FINDINGS: Fluoroscopic spot filming was performed to verify placement of spinal needles at the L4-5 level(s), as labeled on the films. Appropriate location(s) of the needle tip(s) was confirmed by injection of iodinated contrast. IMPRESSION: Intraoperative documentation of needle placement for epidural injection at the left L4-5 level Dictated by: Lui Lagunas M.D. on 04/16/2018 at 14:48 Approved by: Lui Lagunas M.D. on 04/16/2018 at 14:48
[2018-04-16 11:39] VITALS: BP 139/63; PULSE 82; RESP 18; TEMP 36.2; O2SAT 98
--- NOTE | 2018-04-16 12:09 | P.PCN_ITS ---
Procedures Date/Time Date of procedure: 04/16/18 Time of procedure: 12:08 General Procedure description: PREOP DIAGNOSIS 1. FORMAINAL STENOSIS WITH LE SYMPTOMS POST OP DIAGNOSIS 1. FORMAINAL STENOSIS WITH LE SYMPTOMS PROCEDURES 1. FLUOROSCOPICALLY GUIDED CONTRAST CONTROLLED TRANSFORAMINAL EPIDURAL STEROID INJECTION - LEFT L4/5 PHYSICIAN: Juan Carlos Rosario DO INDICATIONS: Bella is referred by Dr. Starr for treatment of Foraminal Stenosis with Left LE Symptoms FINDINGS Foraminal Nerve Root Compression secondary to disc disease and facet hypertrophy DESCRIPTION OF PROCEDURE: Following denial of allergy and review of potential side effects and complications, including, but not necessarily limited to, infection, allergic reaction, local tissue breakdown, stroke, temporary or permanent nerve injury, paralysis, and possible , the patient indicated that the patient understood and agreed to proceed. An informed consent document was signed by the patient, witnessed by a nurse, and placed in the patient's chart. Additionally, other treatment options including medications, modalities, and physical therapy were reviewed with the patient. After review of previous anaesthesic history and IV conscious sedation the patient was deemed safe to proceed with todays procedure with IV conscious sedation as ASA class II designation. Safety time-out was performed to confirm patient ID, procedure to be performed and site of procedure. IV sedation was not administered and the patient remained responsive to all verbal commands In the prone position following sterile prep and drape of the lumbar region, the left L4/5 posterior neuroforamen was identified fluoroscopically. The skin was anesthetized via a 25-gauge 1.5-inch needle with 1% lidocaine solution. At this point, a 25-gauge 3.5-inch spinal needle was atraumatically introduced and advanced under fluoroscopic guidance through the posterior left L4/5 neuroforamen to approximately the anterior aspect of the canal. Depth was confirmed on lateral view. Following negative aspiration, injection of approximately 1.5 cc of Isovue 200 under live fluoroscopy in the AP view confirmed excellent flow along the nerve root, into the epidural space without vascular or intrathecal uptake observed Radiological data, including multiple fluoroscopic views of the lumbosacral spine, reveal a spinal needle at the left L4/5 posterior neuroforamen. Subsequent views show flow of contrast material flowing superiorly and inferiorly along the nerve root confirming epidural flow. Subsequently, a test dose of 1.5 cc of 1% lidocaine solution was administered and patient was observed for two minutes for signs or symptoms of complications , including abdominal pain, shortness of breath, bilateral upper or lower extremity weakness, nausea and vomiting, prior to steroid injection. At this point, a total of 3 cc or 20 mg of dexamethasone and 80mg Depo Medrol was injected without incident. The patient tolerated the procedure well without signs or symptoms of complications prior to transfer to the recovery area continued monitoring without incident. The patient was then transferred to the recovery area where they were observed for an appropriate time after the injection. The patient reported a VAS score of 7 prior to the procedure and a post- procedure VAS of 0. Total Fluoroscopy Time: 20.9 seconds Total Conscious Sedation Time: 0min POST OP INSTRUCTIONS The patient was provided a Pain Log to continue to record their response to the target-specific procedure prior to follow-up visit with their referring physician. Additionally, specific post-injection care instructions and a contact number to our office were provided if concerns arise regarding possible complications associated with the procedure are suspected. Juan Carlos Rosario, Complications: none
[2018-04-16 12:18] VITALS: BP 119/29; PULSE 83; RESP 15; O2SAT 99
[2018-04-16 12:26] VITALS: BP 139/59; PULSE 84; RESP 16; O2SAT 100
[2018-04-16 12:33] VITALS: BP 140/71; PULSE 76; RESP 20; O2SAT 98
[2018-04-16] MEDS: IOPAMIDOL 15 ML VIAL 3 ML INJ (12:42)
[2018-04-16] MEDS: DEXAMETHASONE 10 MG/ML VIAL 20 MG INJ (12:42)
[2018-04-16] MEDS: methylPREDNISolone acetate 80 MG/ML VIAL INJ (12:42)
[2018-04-16] MEDS: BUPIVACAINE 0.25% (PF) VIAL 2 ML INJ (12:42)
--- NOTE | 2018-04-17 17:41 | PC.NURSE ---
Called pt for follow up steroid injection. Pt was not at home so I left a message.
== END 2018-04-16 13:00 ==
PROVIDERS: PCP Family Medicine; Visit Provider Physical Medicine & Rehabilitation
DX: M48.061 Spinal stenosis, lumbar region without neurogenic claudication (principal); M51.36 Other intervertebral disc degeneration, lumbar region
CPT/HCPCS: 64483; J1040; J1100; J2250

== ENCOUNTER 2018-05-07 13:45 | Outpatient (RCR) | payer MEDICARE, SELFPAY ==
--- NOTE | 2018-04-26 15:21 | PT.OIE ---
Current Diagnoses Unilateral primary osteoarthritis, left knee (04/26/18) Low back pain (04/26/18) Trochanteric bursitis, left hip (04/26/18) Abnormal posture (04/26/18) Weakness (04/26/18) Provider Visit Care Team Role Provider Type Colt Starr MD Primary Care Provider Physician Specialty: Family Practice Address: [address] [place], [address] Email: Juan Carlos Rosario DO Attending Provider Physician Specialty: Physiatry Pain Management Address: [address] [place] [address], [phone] Email: Physical Therapy Initial Evaluation PT-OP-A Visit Information Start: 04/26/18 07:24 Freq: Status: Active Protocol: Document 04/26/18 09:32 [facility] (Rec: 04/26/18 11:22 [facility] [id number]) Out-Patient Physical Therapy Visit Information Visit Information Visit Type Initial Evaluation Visit Start Time 10:30 Visit Stop Time 11:15 Total Visit Minutes 45 Visit Number 1 Number of PHOTOGRAMMETRIC TECH Visits 0 PT-OP-B Current Condition Start: 04/26/18 07:24 Freq: Status: Active Protocol: Document 04/26/18 09:32 [facility] (Rec: 04/26/18 15:21 [facility] [id number]) Current Condition History of Current Condition Onset Date 5 years ago LBP, 2-3 yrs L hip & 2 months LLE pain Current Complaints R LBP, L hip pain that radiates to L lat knee History of Current Condition Pt reports chronic LBP for the past 5 years. She was treated for LBP in the past for TP and taht did help and notes US helped. Reports she has had L hip bursae pain that got worse after an injection about 2 months ago and started to have pain from L hip to L knee laterally. Pt notes another injection 10 weeks ago helped a little and her 2 sessions of acupuncture has improved her ability to walk and she can now walk around the block for the past 2 days. Pt reports prior to that she was barely able to walk room to room. 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 She went down to 10k steps and has gradually dec and recently has only been able to get about 400 steps/day. She cannot go into the pool d/t hx of this lung disease. She has a stationary bike and does 15-20 min as the knee allows. She has to have her head of bed elevated for sleeping d/t this lung condition and taht inc LBP. Prior Treatments and Tests 2 sessions of acupuncture that have helped pt be able to walk since injection in lumbar spine 2 months ago and 2nd injection on L side of lumbar that helped dec pain some 10 days ago; hx of 2 injections to R LB with no change and injection 3 months ago to L hip bursa that helped ith pain . Future Testing and Treatments Planned MRI performed-in chart (mild progression of degenerative change at L2-3 & overall DDD) Treatment Goals Patient/Caregiver Goals Be able to walk 1 mile with dog, improve balance, have exercises to help prevent pain and improve pain. PT-OP-C Subjective Start: 04/26/18 07:24 Freq: Status: Active Protocol: Document 04/26/18 10:32 [facility] (Rec: 04/26/18 13:14 [facility] [id number]) Patient Questionnaires Oswestry Low Back Index Oswestry Score 30 Oswestry Impairment 20 to 39% Impaired (Score 20- 39) OP-PT Pain Assessment Location Right Back Pain Location Details R LB, L hip & L knee Intensity 7 Scale Used Numeric (1 - 10) Frequency Daily Other Pain Aggravating Factors sitting, sleeping, walking, lifting, bending over, sit<> stand Other Pain Alleviating Factors TENs, ice, acupuncture, advil PT-OP-F Manual Assessment Start: 04/26/18 07:24 Freq: Status: Active Protocol: Document 04/26/18 09:32 [facility] (Rec: 04/26/18 11:22 [facility] [id number]) Manual Assessments Joint Mobility Assessment Joint Mobility Assessment L iliac higher PT-OP-G Mobility & Gait Start: 04/26/18 07:24 Freq: Status: Active Protocol: Document 04/26/18 09:32 [facility] (Rec: 04/26/18 11:22 [facility] [id number]) OP Gait Assessment Comments Gait Comments Dec push off LLE with dec post depression; ER pelvis B PT-OP-K Range of Motion Start: 04/26/18 07:24 Freq: Status: Active Protocol: Document 04/26/18 09:32 [facility] (Rec: 04/26/18 11:22 [facility] [id number]) Lumbar Spine Range of Motion Lumbar Spine Active Degrees Flexion 45 Extension 13 Rotation Right 18 Lateral Flexion Left 12 Comments pain L SB & w/flex returning upright Knee Goniometric Range of Motion Knee Measured in Degrees Left Knee ROM WFL Yes PT-OP-L Special Tests Start: 04/26/18 07:24 Freq: Status: Active Protocol: Document 04/26/18 09:32 [facility] (Rec: 04/26/18 11:22 [facility] [id number]) Special Tests Lumbar Spine Special Tests Slump Test Results neg B PT-OP-M Strength Start: 04/26/18 07:24 Freq: Status: Active Protocol: Document 04/26/18 09:32 [facility] (Rec: 04/26/18 11:22 [facility] [id number]) Hip Strength Hip Manual Muscle Testing Right Flexion (L2) 4 Good External Rotation 5 Normal Internal Rotation 5 Normal Left Flexion (L2) 4 Good External Rotation 4 Good Internal Rotation 4+ Good+ Knee Strength Knee Manual Muscle Testing Right Flexion (S2) 5 Normal Extension (L3) 5 Normal Left Flexion (S2) 4 Good Extension (L3) 4- Good- Ankle/Foot Strength Ankle and Foot Manual Muscle Testing Right Dorsiflexion (L4) 5 Normal Plantarflexion (S1) 5 Normal Left Dorsiflexion (L4) 4 Good Plantarflexion (S1) 4- Good- PT-OP-Q Treatments Start: 04/26/18 07:24 Freq: Status: Active Protocol: Document 04/26/18 10:32 [facility] (Rec: 04/26/18 13:10 [facility] [id number]) Therapeutic Exercises Supine Exercises 7 Supine Exercise Name pelvic tilt Reps/Minutes 10 6 Supine Exercise Name pelvic tilt with march Reps/Minutes 10 5 Supine Exercise Name diaphragmatic breathing Comments w/weight on abdomen PT-OP-T Assessment and Plan Start: 04/26/18 07:24 Freq: Status: Active Protocol: Document 04/26/18 09:32 [facility] (Rec: 04/26/18 15:21 [facility] [id number]) Physical Therapy Assessment Rehab Potential Rehabilitation Potential Good Evaluation Complexity Number of Personal Factors/Comorbidities 3 or More Number of Body Systems Impaired 4 or More Clinical Presentation at Evaluation Evolving Impairments Impairments Balance Functional Activities Functional Mobility Gait Pain Posture ROM Soft Tissue Mobility Strength Goals Three Impairment lifting Public Health Doctor Goal (LTG) Pt will be able to lift without cueing with good mechanics. LTG Duration 06/26/18 Two Impairment gait Short Term Goal (STG) Pt will have improved push off during gait and will be educated in proper gait mechanics STG Duration 05/27/18 Snf Goal (LTG) Pt will be able to walk 1 mile with minimal inc in pain. LTG Duration 06/26/18 One Impairment weakness Short Term Goal (STG) indep with HEP STG Duration 05/27/18 Snf Goal (LTG) LE strength to 4+/5 or greater to demonstrate good strength to allow pt to walk LTG Duration 06/26/18 Physical Therapy Plan Frequency and Duration Frequency of Treatment 2x/Week Duration of Treatment 2 months Plan of Care Start Date 04/26/18 Plan of Care End Date 06/26/18 Therapeutic Interventions Therapeutic Interventions Balance Training Gait Training Home Exercise Program Joint Mobilizations Manual Therapy Soft Tissue Mobilization Taping Therapeutic Activities Therapeutic Exercises Modalities Cold Pack/Ice Massage Electric Stimulation Hot Packs Ultrasound Next Visit Focus/Plan Next Note Type Treatment Note Next Visit Plan Diaphram STM & breathing, bridging, LTR, core stability in supine, STM to L hip, tennis ball, ITB STM
--- NOTE | 2018-04-26 15:21 | PT.OPPOC ---
Current Diagnoses Unilateral primary osteoarthritis, left knee (04/26/18) Low back pain (04/26/18) Trochanteric bursitis, left hip (04/26/18) Abnormal posture (04/26/18) Weakness (04/26/18) Provider Visit Care Team Role Provider Type oClt Starr MD Primary Care Provider Physician Specialty: Family Practice Address: [facility] [place], [address] Email: Juan Carlos Rosario DO Attending Provider Physician Specialty: Physiatry Pain Management Address: [address] [place] [address], [phone] Email: Plan Of Care PT-OP-T Assessment and Plan Start: 04/26/18 07:24 Freq: Status: Active Protocol: Document 04/26/18 09:32 [facility] (Rec: 04/26/18 15:21 [facility] [id number]) Physical Therapy Assessment Rehab Potential Rehabilitation Potential Good Evaluation Complexity Number of Personal Factors/Comorbidities 3 or More Number of Body Systems Impaired 4 or More Clinical Presentation at Evaluation Evolving Impairments Impairments Balance Functional Activities Functional Mobility Gait Pain Posture ROM Soft Tissue Mobility Strength Goals Three Impairment lifting College Athlete Goal (LTG) Pt will be able to lift without cueing with good mechanics. LTG Duration 06/26/18 Two Impairment gait Short Term Goal (STG) Pt will have improved push off during gait and will be educated in proper gait mechanics STG Duration 05/27/18 Nursing Home Goal (LTG) Pt will be able to walk 1 mile with minimal inc in pain. LTG Duration 06/26/18 One Impairment weakness Short Term Goal (STG) indep with HEP STG Duration 05/27/18 Nursing Home Goal (LTG) LE strength to 4+/5 or greater to demonstrate good strength to allow pt to walk LTG Duration 06/26/18 Physical Therapy Plan Frequency and Duration Frequency of Treatment 2x/Week Duration of Treatment 2 months Plan of Care Start Date 04/26/18 Plan of Care End Date 06/26/18 Therapeutic Interventions Therapeutic Interventions Balance Training Gait Training Home Exercise Program Joint Mobilizations Manual Therapy Soft Tissue Mobilization Taping Therapeutic Activities Therapeutic Exercises Modalities Cold Pack/Ice Massage Electric Stimulation Hot Packs Ultrasound Next Visit Focus/Plan Next Note Type Treatment Note Next Visit Plan Diaphram STM & breathing, bridging, LTR, core stability in supine, STM to L hip, tennis ball, ITB STM Plan of Care Dates Plan of Care Start Date 04/26/18 Plan of Care End Date 06/26/18 Please Sign and Return: I have reviewed this Plan of Care and certify that the skilled therapy services above are required to meet the patient?s needs. Physician Signature Date Printed Name and Credentials Clinical Instructor Signature Printed Name and Credentials
--- NOTE | 2018-05-03 11:23 | PT.OTN ---
Current Diagnoses Unilateral primary osteoarthritis, left knee (05/03/18) Trochanteric bursitis, left hip (05/03/18) Physical Therapy Treatment Note PT-OP-A Visit Information Start: 04/26/18 07:24 Freq: Status: Active Protocol: Document 05/03/18 10:38 [facility] (Rec: 05/03/18 11:23 [facility] [id number]) Out-Patient Physical Therapy Visit Information Visit Information Visit Type Treatment Note Visit Start Time 10:35 Visit Stop Time 11:15 Total Visit Minutes 40 Visit Number 2/ Number of MISSION WORKER Visits 0 PT-OP-B Current Condition Start: 04/26/18 07:24 Freq: Status: Active Protocol: Document 04/26/18 09:32 [facility] (Rec: 04/26/18 15:21 [facility] [id number]) Current Condition History of Current Condition Onset Date 5 years ago LBP, 2-3 yrs L hip & 2 months LLE pain Current Complaints R LBP, L hip pain that radiates to L lat knee History of Current Condition Pt reports chronic LBP for the past 5 years. She was treated for LBP in the past for TP and taht did help and notes US helped. Reports she has had L hip bursae pain that got worse after an injection about 2 months ago and started to have pain from L hip to L knee laterally. Pt notes another injection 10 weeks ago helped a little and her 2 sessions of acupuncture has improved her ability to walk and she can now walk around the block for the past 2 days. Pt reports prior to that she was barely able to walk room to room. 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 She went down to 10k steps and has gradually dec and recently has only been able to get about 400 steps/day. She cannot go into the pool d/t hx of this lung disease. She has a stationary bike and does 15-20 min as the knee allows. She has to have her head of bed elevated for sleeping d/t this lung condition and taht inc LBP. Prior Treatments and Tests 2 sessions of acupuncture that have helped pt be able to walk since injection in lumbar spine 2 months ago and 2nd injection on L side of lumbar that helped dec pain some 10 days ago; hx of 2 injections to R LB with no change and injection 3 months ago to L hip bursa that helped ith pain . Future Testing and Treatments Planned MRI performed-in chart (mild progression of degenerative change at L2-3 & overall DDD) Treatment Goals Patient/Caregiver Goals Be able to walk 1 mile with dog, improve balance, have exercises to help prevent pain and improve pain. PT-OP-C Subjective Start: 04/26/18 07:24 Freq: Status: Active Protocol: Document 05/03/18 10:38 [facility] (Rec: 05/03/18 11:23 [facility] [id number]) OP-PT Subjective Patient Comments Patient Comments Pt reports using rolling pin was too much pressure so stopped. PT-OP-F Manual Assessment Start: 04/26/18 07:24 Freq: Status: Active Protocol: Document 04/26/18 09:32 [facility] (Rec: 04/26/18 11:22 [facility] [id number]) Manual Assessments Joint Mobility Assessment Joint Mobility Assessment L iliac higher PT-OP-G Mobility & Gait Start: 04/26/18 07:24 Freq: Status: Active Protocol: Document 04/26/18 09:32 [facility] (Rec: 04/26/18 11:22 [facility] [id number]) OP Gait Assessment Comments Gait Comments Dec push off LLE with dec post depression; ER pelvis B PT-OP-K Range of Motion Start: 04/26/18 07:24 Freq: Status: Active Protocol: Document 04/26/18 09:32 [facility] (Rec: 04/26/18 11:22 [facility] [id number]) Lumbar Spine Range of Motion Lumbar Spine Active Degrees Flexion 45 Extension 13 Rotation Right 18 Lateral Flexion Left 12 Comments pain L SB & w/flex returning upright Knee Goniometric Range of Motion Knee Measured in Degrees Left Knee ROM WFL Yes PT-OP-L Special Tests Start: 04/26/18 07:24 Freq: Status: Active Protocol: Document 04/26/18 09:32 [facility] (Rec: 04/26/18 11:22 [facility] [id number]) Special Tests Lumbar Spine Special Tests Slump Test Results neg B PT-OP-M Strength Start: 04/26/18 07:24 Freq: Status: Active Protocol: Document 04/26/18 09:32 [facility] (Rec: 04/26/18 11:22 [facility] [id number]) Hip Strength Hip Manual Muscle Testing Right Flexion (L2) 4 Good External Rotation 5 Normal Internal Rotation 5 Normal Left Flexion (L2) 4 Good External Rotation 4 Good Internal Rotation 4+ Good+ Knee Strength Knee Manual Muscle Testing Right Flexion (S2) 5 Normal Extension (L3) 5 Normal Left Flexion (S2) 4 Good Extension (L3) 4- Good- Ankle/Foot Strength Ankle and Foot Manual Muscle Testing Right Dorsiflexion (L4) 5 Normal Plantarflexion (S1) 5 Normal Left Dorsiflexion (L4) 4 Good Plantarflexion (S1) 4- Good- PT-OP-Q Treatments Start: 04/26/18 07:24 Freq: Status: Active Protocol: Document 05/03/18 10:38 [facility] (Rec: 05/03/18 11:23 [facility] [id number]) Cardio Equipment Recumbent Elliptical (Biodex) Duration (Minutes) 5 Resistance 1 Seat Position 6 Other AAROM for LLE Therapeutic Exercises Supine Exercises 7 Supine Exercise Name pelvic tilt Reps/Minutes 10 6 Supine Exercise Name pelvic tilt with march Reps/Minutes 10 5 Supine Exercise Name diaphragmatic breathing Comments w/weight on abdomen 4 Supine Exercise Name LTR Comments comfortable range Manual Therapy Treatment Soft Tissue Mobilization 2 Body Location piriformis/glutes Mobilization Type Rolling 1 Body Location ITB Mobilization Type Rolling PT-OP-T Assessment and Plan Start: 04/26/18 07:24 Freq: Status: Active Protocol: Document 05/03/18 10:38 [facility] (Rec: 05/03/18 11:23 [facility] [id number]) Physical Therapy Assessment Goals Three Impairment lifting Skilled Nursing Goal (LTG) Pt will be able to lift without cueing with good mechanics. LTG Duration 06/26/18 Two Impairment gait Short Term Goal (STG) Pt will have improved push off during gait and will be educated in proper gait mechanics STG Duration 05/27/18 Visualization Developer Goal (LTG) Pt will be able to walk 1 mile with minimal inc in pain. LTG Duration 06/26/18 One Impairment weakness Short Term Goal (STG) indep with HEP STG Duration 05/27/18 Visualization Developer Goal (LTG) LE strength to 4+/5 or greater to demonstrate good strength to allow pt to walk LTG Duration 06/26/18 Assessment Summary Assessment Pt is progressing with exercises, but requires cueing for all exercises for range & form. Improved soft tissue mobility with STM. Physical Therapy Plan Next Visit Focus/Plan Next Note Type Treatment Note Next Visit Plan bridging, cont to work on diaphram breathing & STM, mag hip rot
--- NOTE | 2018-05-07 14:29 | PT.OTN ---
Current Diagnoses Unilateral primary osteoarthritis, left knee (05/07/18) Trochanteric bursitis, left hip (05/07/18) Physical Therapy Treatment Note PT-OP-A Visit Information Start: 04/26/18 07:24 Freq: Status: Active Protocol: Document 05/07/18 13:47 [facility] (Rec: 05/07/18 14:29 [facility] [id number]) Out-Patient Physical Therapy Visit Information Visit Information Visit Type Treatment Note Visit Start Time 13:45 Visit Stop Time 14:25 Total Visit Minutes 40 Visit Number 3/10 Number of CHRO Visits 0 PT-OP-B Current Condition Start: 04/26/18 07:24 Freq: Status: Active Protocol: Document 04/26/18 09:32 [facility] (Rec: 04/26/18 15:21 [facility] [id number]) Current Condition History of Current Condition Onset Date 5 years ago LBP, 2-3 yrs L hip & 2 months LLE pain Current Complaints R LBP, L hip pain that radiates to L lat knee History of Current Condition Pt reports chronic LBP for the past 5 years. She was treated for LBP in the past for TP and taht did help and notes US helped. Reports she has had L hip bursae pain that got worse after an injection about 2 months ago and started to have pain from L hip to L knee laterally. Pt notes another injection 10 weeks ago helped a little and her 2 sessions of acupuncture has improved her ability to walk and she can now walk around the block for the past 2 days. Pt reports prior to that she was barely able to walk room to room. 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 She went down to 10k steps and has gradually dec and recently has only been able to get about 400 steps/day. She cannot go into the pool d/t hx of this lung disease. She has a stationary bike and does 15-20 min as the knee allows. She has to have her head of bed elevated for sleeping d/t this lung condition and taht inc LBP. Prior Treatments and Tests 2 sessions of acupuncture that have helped pt be able to walk since injection in lumbar spine 2 months ago and 2nd injection on L side of lumbar that helped dec pain some 10 days ago; hx of 2 injections to R LB with no change and injection 3 months ago to L hip bursa that helped ith pain . Future Testing and Treatments Planned MRI performed-in chart (mild progression of degenerative change at L2-3 & overall DDD) Treatment Goals Patient/Caregiver Goals Be able to walk 1 mile with dog, improve balance, have exercises to help prevent pain and improve pain. PT-OP-C Subjective Start: 04/26/18 07:24 Freq: Status: Active Protocol: Document 05/07/18 13:47 [facility] (Rec: 05/07/18 14:29 [facility] [id number]) OP-PT Subjective Patient Comments Patient Comments Pt has had a lot of trouble with pelvic tilts PT-OP-F Manual Assessment Start: 04/26/18 07:24 Freq: Status: Active Protocol: Document 04/26/18 09:32 [facility] (Rec: 04/26/18 11:22 [facility] [id number]) Manual Assessments Joint Mobility Assessment Joint Mobility Assessment L iliac higher PT-OP-G Mobility & Gait Start: 04/26/18 07:24 Freq: Status: Active Protocol: Document 04/26/18 09:32 [facility] (Rec: 04/26/18 11:22 [facility] [id number]) OP Gait Assessment Comments Gait Comments Dec push off LLE with dec post depression; ER pelvis B PT-OP-K Range of Motion Start: 04/26/18 07:24 Freq: Status: Active Protocol: Document 04/26/18 09:32 [facility] (Rec: 04/26/18 11:22 [facility] [id number]) Lumbar Spine Range of Motion Lumbar Spine Active Degrees Flexion 45 Extension 13 Rotation Right 18 Lateral Flexion Left 12 Comments pain L SB & w/flex returning upright Knee Goniometric Range of Motion Knee Measured in Degrees Left Knee ROM WFL Yes PT-OP-L Special Tests Start: 04/26/18 07:24 Freq: Status: Active Protocol: Document 04/26/18 09:32 [facility] (Rec: 04/26/18 11:22 [facility] [id number]) Special Tests Lumbar Spine Special Tests Slump Test Results neg B PT-OP-M Strength Start: 04/26/18 07:24 Freq: Status: Active Protocol: Document 04/26/18 09:32 [facility] (Rec: 04/26/18 11:22 [facility] [id number]) Hip Strength Hip Manual Muscle Testing Right Flexion (L2) 4 Good External Rotation 5 Normal Internal Rotation 5 Normal Left Flexion (L2) 4 Good External Rotation 4 Good Internal Rotation 4+ Good+ Knee Strength Knee Manual Muscle Testing Right Flexion (S2) 5 Normal Extension (L3) 5 Normal Left Flexion (S2) 4 Good Extension (L3) 4- Good- Ankle/Foot Strength Ankle and Foot Manual Muscle Testing Right Dorsiflexion (L4) 5 Normal Plantarflexion (S1) 5 Normal Left Dorsiflexion (L4) 4 Good Plantarflexion (S1) 4- Good- PT-OP-Q Treatments Start: 04/26/18 07:24 Freq: Status: Active Protocol: Document 05/07/18 13:47 [facility] (Rec: 05/07/18 14:29 [facility] [id number]) Cardio Equipment Recumbent Stepper (Sci-Fit) Duration (Minutes) 5 Resistance 2 Seat Position 10 Therapeutic Exercises Supine Exercises 7 Supine Exercise Name pelvic tilt Reps/Minutes 10 6 Supine Exercise Name pelvic tilt with march Reps/Minutes 10 5 Supine Exercise Name diaphragmatic breathing Comments w/weight on abdomen 4 Supine Exercise Name LTR Comments comfortable range 3 Supine Exercise Name bridging Reps/Minutes 12 Manual Therapy Treatment Soft Tissue Mobilization 3 Body Location HS Mobilization Type Rolling 2 Body Location piriformis/glutes Mobilization Type Rolling 1 Body Location ITB Mobilization Type Rolling PT-OP-T Assessment and Plan Start: 04/26/18 07:24 Freq: Status: Active Protocol: Document 05/07/18 13:47 [facility] (Rec: 05/07/18 14:29 [facility] [id number]) Physical Therapy Assessment Goals Three Impairment lifting Penitentiary Goal (LTG) Pt will be able to lift without cueing with good mechanics. LTG Duration 06/26/18 Two Impairment gait Short Term Goal (STG) Pt will have improved push off during gait and will be educated in proper gait mechanics STG Duration 05/27/18 [facility]entiary Goal (LTG) Pt will be able to walk 1 mile with minimal inc in pain. LTG Duration 06/26/18 One Impairment weakness Short Term Goal (STG) indep with HEP STG Duration 05/27/18 Mill Labor Supervisor Goal (LTG) LE strength to 4+/5 or greater to demonstrate good strength to allow pt to walk LTG Duration 06/26/18 Assessment Summary Assessment Pt did much better with exercises and after min cueing was able to do pelvic tilt correctly. Reviewed importance of staying in painfree range. Physical Therapy Plan Next Visit Focus/Plan Next Note Type Treatment Note Next Visit Plan cont to work on diaphram breathing & STM, feldenkris hip rot, clamshells & reverse clamshell
--- NOTE | 2018-05-23 10:10 | PT.OPDS ---
Current Diagnoses Unilateral primary osteoarthritis, left knee (05/07/18) Trochanteric bursitis, left hip (05/07/18) Provider Visit Care Team Role Provider Type Colt Starr MD Primary Care Provider Physician Specialty: Family Practice Address: [address] [place], [address] Email: Juan Carlos Rosario DO Attending Provider Physician Specialty: Physiatry Pain Management Address: [address] [place] [address], [phone] Email: Visit Number Visit Number 11/10 Discharge Summary PT-OP-B Current Condition Start: 04/26/18 07:24 Freq: Status: Active Protocol: Document 04/26/18 09:32 [facility] (Rec: 04/26/18 15:21 [facility] [id number]) Current Condition History of Current Condition Onset Date 5 years ago LBP, 2-3 yrs L hip & 2 months LLE pain Current Complaints R LBP, L hip pain that radiates to L lat knee History of Current Condition Pt reports chronic LBP for the past 5 years. She was treated for LBP in the past for TP and taht did help and notes US helped. Reports she has had L hip bursae pain that got worse after an injection about 2 months ago and started to have pain from L hip to L knee laterally. Pt notes another injection 10 weeks ago helped a little and her 2 sessions of acupuncture has improved her ability to walk and she can now walk around the block for the past 2 days. Pt reports prior to that she was barely able to walk room to room. 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 She went down to 10k steps and has gradually dec and recently has only been able to get about 400 steps/day. She cannot go into the pool d/t hx of this lung disease. She has a stationary bike and does 15-20 min as the knee allows. She has to have her head of bed elevated for sleeping d/t this lung condition and taht inc LBP. Prior Treatments and Tests 2 sessions of acupuncture that have helped pt be able to walk since injection in lumbar spine 2 months ago and 2nd injection on L side of lumbar that helped dec pain some 10 days ago; hx of 2 injections to R LB with no change and injection 3 months ago to L hip bursa that helped ith pain . Future Testing and Treatments Planned MRI performed-in chart (mild progression of degenerative change at L2-3 & overall DDD) Treatment Goals Patient/Caregiver Goals Be able to walk 1 mile with dog, improve balance, have exercises to help prevent pain and improve pain. PT-OP-C Subjective Start: 04/26/18 07:24 Freq: Status: Active Protocol: Document 05/07/18 13:47 [facility] (Rec: 05/07/18 14:29 [facility] [id number]) OP-PT Subjective Patient Comments Patient Comments Pt has had a lot of trouble with pelvic tilts PT-OP-F Manual Assessment Start: 04/26/18 07:24 Freq: Status: Active Protocol: Document 04/26/18 09:32 [facility] (Rec: 04/26/18 11:22 [facility] [id number]) Manual Assessments Joint Mobility Assessment Joint Mobility Assessment L iliac higher PT-OP-G Mobility & Gait Start: 04/26/18 07:24 Freq: Status: Active Protocol: Document 04/26/18 09:32 [facility] (Rec: 04/26/18 11:22 [facility] [id number]) OP Gait Assessment Comments Gait Comments Dec push off LLE with dec post depression; ER pelvis B PT-OP-K Range of Motion Start: 04/26/18 07:24 Freq: Status: Active Protocol: Document 04/26/18 09:32 [facility] (Rec: 04/26/18 11:22 [facility] [id number]) Lumbar Spine Range of Motion Lumbar Spine Active Degrees Flexion 45 Extension 13 Rotation Right 18 Lateral Flexion Left 12 Comments pain L SB & w/flex returning upright Knee Goniometric Range of Motion Knee Measured in Degrees Left Knee ROM WFL Yes PT-OP-L Special Tests Start: 04/26/18 07:24 Freq: Status: Active Protocol: Document 04/26/18 09:32 [facility] (Rec: 04/26/18 11:22 [facility] [id number]) Special Tests Lumbar Spine Special Tests Slump Test Results neg B PT-OP-M Strength Start: 04/26/18 07:24 Freq: Status: Active Protocol: Document 04/26/18 09:32 [facility] (Rec: 04/26/18 11:22 [facility] [id number]) Hip Strength Hip Manual Muscle Testing Right Flexion (L2) 4 Good External Rotation 5 Normal Internal Rotation 5 Normal Left Flexion (L2) 4 Good External Rotation 4 Good Internal Rotation 4+ Good+ Knee Strength Knee Manual Muscle Testing Right Flexion (S2) 5 Normal Extension (L3) 5 Normal Left Flexion (S2) 4 Good Extension (L3) 4- Good- Ankle/Foot Strength Ankle and Foot Manual Muscle Testing Right Dorsiflexion (L4) 5 Normal Plantarflexion (S1) 5 Normal Left Dorsiflexion (L4) 4 Good Plantarflexion (S1) 4- Good- PT-OP-T Assessment and Plan Start: 04/26/18 07:24 Freq: Status: Active Protocol: Document 05/23/18 10:10 [facility] (Rec: 05/23/18 10:10 [facility] [id number]) Physical Therapy Plan Discharge Physical Therapy Discharge Reasons Patient Request Discharge Comments Pt reports surgeon does not want her to have PT and to d/c pt.
== END 2018-08-02 09:12 ==
LOC: PHYS 13:45
PROVIDERS: PCP Family Medicine; Visit Provider Physical Medicine & Rehabilitation
DX: M17.12 Unilateral primary osteoarthritis, left knee (principal); M70.62 Trochanteric bursitis, left hip
CPT/HCPCS: 97110; 97140; 97162

== ENCOUNTER → 2018-07-20 08:41 | Outpatient (CLI) | payer MEDICARE, SELFPAY ==
--- NOTE | 2018-07-20 | DI.MG.S_ITS ---
BILATERAL DIGITAL SCREENING MAMMOGRAM 3D/2D WITH CAD: 07/20/2018 CLINICAL: Routine screening. Family history of breast cancer. Comparison is made to exams dated: 09/15/2016 mammogram - [facility], 08/30/2015 mammogram, and 08/26/2014 mammogram - [facility]. There are scattered fibroglandular elements in both breasts. Current study was also evaluated with a Computer Aided Detection (CAD) system. No significant masses, calcifications, or other findings are seen in either breast. There has been no significant interval change. IMPRESSION: NEGATIVE There is no mammographic evidence of malignancy. A 1 year screening mammogram is recommended. This exam was interpreted at Station ID: [id number]. NOTE: For mammograms, a report in lay terms will be sent to the patient. Approximately 15% of breast malignancies will not be visualized mammographically. In the management of a palpable breast mass, a negative mammogram must not discourage biopsy of a clinically suspicious lesion. Electronically Signed By: Kiley moulton/yehuda:07/20/2018 10:59:57 letter sent: Normal Exam ACR BI-RADS Category 1: Negative [id number]
== END ==
PROVIDERS: PCP Family Medicine; Visit Provider Family Medicine
DX: Z12.31 Encounter for screening mammogram for malignant neoplasm of breast (principal); Z80.3 Family history of malignant neoplasm of breast
CPT/HCPCS: 77063; 77067

== ENCOUNTER 2018-11-06 08:07 | Outpatient (CLI) | payer MEDICARE, SELFPAY ==
--- NOTE | 2018-11-06 08:08 | DI.RAD.S_ITS ---
PROCEDURE: PAIN L INTERLAMINAR/CAUDAL INJ INDICATIONS: lumbosacral spondylosis FINDINGS: Fluoroscopic spot filming was performed to verify placement of spinal needles at the L4-L5 intralaminar notch level, as labeled on the films. Appropriate location(s) of the needle tip(s) was confirmed by injection of iodinated contrast. IMPRESSION: Successful L4-L5 needle tip localization for dorsal midline epidural steroid injection. Dictated by: Lobo Jacinto M.D. on 11/06/2018 at 10:30 Approved by: Lobo Jacinto M.D. on 11/06/2018 at 10:33
[2018-11-06 08:18] VITALS: BP 122/55; PULSE 74; RESP 14; TEMP 36.1; O2SAT 99
[2018-11-06 08:50] VITALS: BP 147/93; PULSE 71; RESP 16; O2SAT 100
--- NOTE | 2018-11-06 08:51 | P.PCN_ITS ---
Procedures Date/Time Date of procedure: 11/06/18 Time of procedure: 08:48 General Procedure description: PROVIDER: Juan Carlos Rosario DO Operative Note PREOP DIAGNOSIS 1. HNP WITH RADICULAR FEATURES, 2. MULTILEVEL CENTRAL STENOSIS, POST OP DIAGNOSIS 1. HNP WITH RADICULAR FEATURES, 2. MULTILEVEL CENTRAL STENOSIS PROCEDURES 1. FLUORSCOPICALLY GUIDED CONTRAST CONTROLLED INTERLAMINAR EPIDURAL STEROID INJECTION -L4/5 PHYSICIAN: Juan Carlos Rosario DO INDICATIONs: Bella is referred by Dr. Starr for treatment of Bilateral Foraminal Stenosis R>L LE symptoms. FINDINGS Multilevel Central Spinal Stenosis with Nerve Root Compression DESCRIPTION OF PROCEDURE Fluoroscopically guided, contrast-controlled L4/5 translaminar epidural steroid injection. Following denial of allergy and review of potential side effects and complications, including, but not necessarily limited to, infection, allergic reaction, local tissue breakdown, temporary as well as permanent nerve injury, paralysis, stroke and possible , the patient indicated that the patient understood and agreed to proceed. An informed consent document was signed by the patient, witnessed by a nurse, and placed in the patient's chart. Additionally, other treatment options including modalities, medications, and physical therapy were reviewed with the patient. After review of previous anaesthesic history and IV conscious sedation the patient was deemed safe to proceed with todays procedure with IV conscious sedation as ASA class II designation. Safety time-out was performed to confirm patient ID, procedure to be performed and site of procedure. IV sedation was deemed unnecessary and thus not administered by the RN after DO order, while the patient remained responsive to all verbal commands In the prone position, following sterile prep and drape of the lumbar region, the L4/5 translaminar space was identified fluoroscopically. The skin was anesthetized via a 25-gauge, 1.5-inch needle with 1% lidocaine solution. At this point, a 22-gauge short bevel spinal needle was atraumatically introduced and advanced under fluoroscopic guidance into the region of the L4/5 translaminar space. Depth was confirmed on lateral view. Radiological data, including multiple fluoroscopic views of the lumbar spine, reveal a spinal needle at the L4/5 translaminar space. Lateral views then show placement of the needle in the epidural space. Subsequent views show contrast material flowing superiorly and inferiorly in the epidural space. No vascular or intrathecal uptake is observed. At this point, using loss of resistance technique with saline and air, the epidural space was entered. This was confirmed following negative aspiration with injection of approximately 1.5 cc of Isovue 200, showing excellent epidural flow without vascular or intrathecal uptake. At this point, 1 cc of 1% lidocaine solution combined with 2cc or 20mg of dexamethasone was injected without incident. The patient tolerated the procedure well without signs or symptoms of co mplications prior to transfer to the recovery area continued monitoring without incident. The patient was then transferred to the recovery area where they were observed for an appropriate period of time after the injection. The patient reported a VAS score of 6 prior to the procedure and a post- procedure VAS of 0. Total Fluoroscopy Time: 11.8 seconds, 8.99 mGy Total Conscious Sedation Time: 24min POST OP INSTRUCTIONS The patient was provided a Pain Log to continue to record their response to the target-specific procedure prior to follow-up visit with their referring physician. Additionally, specific post-injection care instructions and a contact number to our office were provided if concerns arise regarding possible complications associated with the procedure are suspected. Juan Carlos Rosario DO Complications: none
[2018-11-06 08:55] VITALS: BP 147/64; PULSE 69; RESP 16; O2SAT 100
[2018-11-06 09:00] VITALS: BP 154/59; PULSE 69; RESP 16; O2SAT 100
[2018-11-06 09:08] VITALS: BP 146/54; PULSE 69; RESP 18; O2SAT 100
--- NOTE | 2018-11-06 09:10 | PC.NURSE ---
ACCEPTED CARE OF PT IN POST PROC AREA IN STABLE CONDITION
--- NOTE | 2018-11-06 09:13 | PC.NURSE ---
pt tolerated procedure. Assisted pt off table and into w/c with two person standby assist. Transferred pt to pre procedure room for continued monitoring with Henrietta RM.
[2018-11-06] MEDS: DEXAMETHASONE 10 MG/ML VIAL 20 MG INJ (09:15)
[2018-11-06] MEDS: BUPIVACAINE 0.25% (PF) VIAL 2 ML INJ (09:15)
[2018-11-06] MEDS: IOPAMIDOL 15 ML VIAL 3 ML INJ (09:15)
== END 2018-11-06 09:25 | disposition home or self-care (01) ==
LOC: RAD 08:08
PROVIDERS: PCP Family Medicine; Visit Provider Physical Medicine & Rehabilitation
DX: M51.16 Intervertebral disc disorders with radiculopathy, lumbar region (principal); M48.061 Spinal stenosis, lumbar region without neurogenic claudication
CPT/HCPCS: 62323; 99152; J1100; J2250; J3010

== ENCOUNTER → 2018-12-13 08:48 | Outpatient (CLI) | payer MEDICARE, SELFPAY ==
--- NOTE | 2018-12-13 | DI.RAD.S_ITS ---
PROCEDURE: XR CHEST 2V INDICATIONS: SHORTNESS OF BREATH TECHNIQUE: 2 views of the chest were acquired. COMPARISON: [facility], , CHEST 2 VIEW, 02/22/2016, 13:06. FINDINGS: Surgical changes and devices: None. Lungs and pleura: Lungs are clear. No pleural effusions or pneumothorax. Mediastinum: Mediastinal contours are normal. Heart size is normal. Bones and chest wall: No suspicious bony abnormalities. Lateral curvatu spine and diffuse spondylosis. Soft tissues appear unremarkable. IMPRESSION: No acute disease Dictated by: Ramón Trujillo M.D. on 12/13/2018 at 10:37 Approved by: Ramón Trujillo M.D. on 12/13/2018 at 10:38
== END ==
PROVIDERS: PCP Family Medicine; Visit Provider Internal Medicine Critical Care Medicine
DX: R06.02 Shortness of breath (principal)
CPT/HCPCS: 71046

== ENCOUNTER 2019-02-21 10:30 | Outpatient (RCR) | payer MEDICARE, SELFPAY ==
--- NOTE | 2018-12-26 16:00 | PT.OIE ---
Current Diagnoses Spondylosis without myelopathy or radiculopathy, lumbosacral region (12/26/18) Other intervertebral disc degeneration, lumbar region (12/26/18) Provider Visit Care Team Role Provider Type Colt Starr MD Primary Care Provider Physician Specialty: Family Practice Address: [address] [place], [address] Email: Juan Carlos Rosario DO Attending Provider Physician Specialty: Physiatry Pain Management Address: [address] [place] [address], [phone] Email: Physical Therapy Initial Evaluation PT-OP-A Visit Information Start: 12/26/18 17:42 Freq: Status: Active Protocol: Document 12/26/18 16:00 [facility] (Rec: 12/26/18 18:13 [facility] [email or web address]) Out-Patient Physical Therapy Visit Information Visit Information Visit Type Initial Evaluation Visit Start Time 16:00 Visit Stop Time 16:55 Total Visit Minutes 55 Visit Number 1 Number of RETAIL GROCER Visits 0 Evaluation Information Evaluation Date 12/26/18 PT-OP-B Current Condition Start: 12/26/18 17:42 Freq: Status: Active Protocol: Document 12/26/18 16:00 [facility] (Rec: 12/26/18 18:13 [email or web address]) Current Condition History of Current Condition Onset Date 6 years ago Current Complaints Chronic back pain and L knee pain, peripheral neuropathy, impaired gait History of Current Condition Pt presents to clinic with a referral from Dr. Rosario for lumbosacral spondylosis, Right SI, L knee and gait instability. Pt states his back pain started 6 years ago most likely because of her scoliosis. She has been getting cortisone injections every 6-9 months a year since then, and that seems to relieve her symptoms a little bit but keeps coming back. She reports nothing really helps (ice sometimes) her back and sitting & twisting make it worse; Pt's L knee pain started from last year for unknown reason, describes as cosntant ache at the knee joint. she also had injection to it but it didnt help. Pt has difficult time for prolonged walking, stair climing (downstair/downhill) and balancing due to pain. She often feels pins and needles around the knee area as well; Her B feet pain/ peripheral neuropathy started 2 years ago with unknown etiology. Pt is not diabetic but she has constant sharp pain, pins and needles and burning sensation on top of her B feet, and tends to feel numb at the bottom. She describes B big toes are the worst, and both feet are very sensitive to touch and pressure. Pt is still very active and independent. She is able to take 8000 steps /day and ride recumbent bike for 30 mins but cannot melissa more than these numbers due to severe L knee pain. Pt rated her L knee issue to be the worst, than B feet than her back at this point. Prior Treatments and Tests Multiplet cortisone injections at lumbar, hip and L knee preivous tx with PT with primarily TENS and ultrasound tx for her low back. Treatment Goals Patient/Caregiver Goals 1. Able to bike 45 mins on recumbent bike without pain 2. able to walk 3 times a day for a total of a mile 3. able to perform step over step during stair climbing. Prior Functional Status Baseline Function- ADL's Independent Baseline Function- Mobility Independent Current Functional Impairments (Reported) Functional Limitations- Mobility/Gait Pt is still currently very active and independent. She is able to take 8000 steps /day and ride recumbent bike for 30 mins but cannot melissa more than these numbers due to severe L knee pain. step to pattern during stair climbing Personal Factors Other Personal Factors That May Effect OA at back Therapy/Recovery TMJ B foot neuropathy scoliosis PT-OP-C Subjective Start: 12/26/18 17:42 Freq: Status: Active Protocol: Document 12/26/18 16:00 (Rec: 12/26/18 18:13 [email or web address]) OP-PT Subjective Patient Comments Patient Comments my body has so much pain in general. Patient Questionnaires Oswestry Low Back Index Oswestry Score 11 Oswestry Impairment 1 to 19% Impaired (Score 1-19) PT-OP-G Mobility & Gait Start: 12/26/18 17:42 Freq: Status: Active Protocol: Document 12/26/18 16:00 [facility] (Rec: 12/27/18 13:04 [id number]) OP Gait Assessment Gait Gait Assistance Required: Independent Assistive Devices Assistive Device None Orthotic/Prosthetic Devices or Brace: No Gait Deviations General Gait Pattern Antalgic Decreased Stride Length Decreased Feet Clearance Factors Limiting Gait Function Factors Limiting Gait Function Decreased Activity Tolerance Decreased Strength Limited Range of Motion Pain Comments Gait Comments L antalgic gait with decreased heel strike and time spent on stance phase on LLE PT-OP-H Neuro Start: 12/26/18 17:42 Freq: Status: Active Protocol: Document 12/26/18 16:00 (Rec: 12/27/18 13:05 [id number]) Sensation Evaluation Gross Sensation Gross Sensation Left LE Impaired Right LE Impaired Sensation Description Hyperesthesia Numbness Tingling Pins & Magnolia Burning Pain Dermatome Impairments L4 L5 S1 Deep Tendon Reflex & Clonus Assessment Deep Tendon Reflex Bilateral Patellar Deep Tendon Reflex 2+ Normal Bilateral Achilles Deep Tendon Reflex 2+ Normal PT-OP-J Posture/Palpation/Skin Start: 12/26/18 17:42 Freq: Status: Active Protocol: Document 12/26/18 16:00 (Rec: 12/27/18 13:04 [id number]) Posture Evaluation Position Standing Evaluation View Anterior Head/C-Spine Posture Forward Head T-Spine Posture Fixed Scoliosis on (R) L-Spine Posture Fixed Scoliosis on (L) Shoulder Posture (L) Rounded (R) Rounded Scapula Posture (R) Protracted Weight Distribution Weight Shifted Right Knee Posture (L) Excess Flexion Ankle/Foot Posture (L) Pronated Foot Arch (L) Low Arch PT-OP-K Range of Motion Start: 12/26/18 17:42 Freq: Status: Active Protocol: Document 12/26/18 16:00 (Rec: 12/27/18 13:04 [id number]) Lumbar Spine Range of Motion Lumbar Spine Percentage Testing Position Standing Flexion 60 Extension 40 Rotation Left 40 Rotation Right 40 Lateral Flexion Left 40 Lateral Flexion Right 40 ROM Limitations Soft Tissue Tightness Bony Restriction Muscle Weakness Pain Comments toe touch to mid michele only Lateral flexion with hands touch lateral mid thigh Knee Goniometric Range of Motion Knee Measured in Degrees Right Knee ROM WFL Yes Patient Position Supine Flexion Active (degrees) 135 Extension Active (degrees) 0 Left Knee ROM WFL Yes Patient Position Supine Flexion Active (degrees) 125 Extension Active (degrees) 5 PT-OP-L Special Tests Start: 12/26/18 17:42 Freq: Status: Active Protocol: Document 12/26/18 16:00 (Rec: 12/27/18 13:04 [id number]) Special Tests Lumbar Spine Special Tests A-P Shearing Test Results +ve Standing Flexion Test Results +ve Comments R thoracic and L lumbar scoliosis PT-OP-M Strength Start: 12/26/18 17:42 Freq: Status: Active Protocol: Document 12/26/18 16:00 (Rec: 12/27/18 13:04 [id number]) Hip Strength Hip Manual Muscle Testing Right Flexion (L2) 4+ Good+ Extension (S1) 4+ Good+ Abduction 4+ Good+ Adduction 4+ Good+ Left Flexion (L2) 4 Good Extension (S1) 4 Good Abduction 4- Good- Adduction 4 Good Knee Strength Knee Manual Muscle Testing Right Flexion (S2) 4+ Good+ Extension (L3) 4+ Good+ Left Flexion (S2) 4- Good- Extension (L3) 3+ Fair+ PT-OP-R Modalities Start: 12/26/18 17:42 Freq: Status: Active Protocol: Document 12/26/18 16:00 (Rec: 12/27/18 12:54 [id number]) Spinal Traction Traction Treatment Lumbar Method Mechanical Patient Position Hooklying Force Applied (Pounds) 25 Duration of Treatment (Minutes) 12 Heating Pad Applied No PT-OP-T Assessment and Plan Start: 12/26/18 17:42 Freq: Status: Active Protocol: Document 12/26/18 16:00 (Rec: 12/26/18 18:13 [email or web address]) Physical Therapy Assessment Rehab Potential Rehabilitation Potential Good Evaluation Complexity Number of Personal Factors/Comorbidities 3 or More Number of Body Systems Impaired 4 or More Clinical Presentation at Evaluation Stable Impairments Impairments Activity Tolerance Balance Functional Activities Functional Mobility Gait Pain Posture ROM Sensation Soft Tissue Mobility Strength Goals Strength Mcfp Goal (LTG) pt will increase her lumbar and L knee strength by 1 MMT grade therefore pt will be improve her single leg strength and balance for functional activties such as stair climbing LTG Duration 12 weeks pain Impairment severe pain during mobility Short Term Goal (STG) Pt will be able to decrease her overall pain level for low back and L knee by 2/10 points during mobility to improve her quality of life STG Duration 6 weeks Scrap Sawyer Goal (LTG) .Pt will be able to decrease her overall pain level for low back and L knee by 4/10 points during mobility to improve her quality of life LTG Duration 12 weeks functional activity Impairment stair climbing Mcfp Goal (LTG) Pt will be able to use step over pattern with 1 railing during stair climbing. LTG Duration 12 weeks activity tolerance Impairment impaired activity tolerance Scrap Sawyer Goal (LTG) Pt will be able to walk > 1mile a day and melissa 45 mins of recumbent bike ride without L knee pain. LTG Duration 12 weeks Assessment Summary Assessment Pt is a high complexity due to her chronic pain pattern, along with unknown cause of peripheral neuropathy at B feet. Upon assessment, Pt presents R thoracic and L lumbar scoliosis with most curvature at lumbar region. Her pain tends to worsen with extension and lateral flexion. There's noticeable decreased strength on L hip and knee with 3+ to 4-/5 grossly. Pt also has impaired sensation to LT and pressure which follows L4-S1 dermatomes. Today's tx included using lumbar traction unit with 25lbs. Pt denies discomfort nor improvements in symptoms. Will cont assess pt 's possible radiculopathy. Pt will benefit from skilled therapy for overall strengthening for core and B LEs, gait training, flexibility training to improve her quality of life and mobility. Pt will most likely need tank terminal gauger rehab since her chronic pain symptoms. Physical Therapy Plan Frequency and Duration Frequency of Treatment 2x/Week Duration of Treatment 12 weeks Plan of Care Start Date 12/26/18 Plan of Care End Date 03/27/19 Therapeutic Interventions Therapeutic Interventions Aquatic Therapy Balance Training Gait Training Home Exercise Program Joint Mobilizations Manual Therapy Neuromuscular Re-education Patient/Caregiver Education Self-Care/Home Management Soft Tissue Mobilization Taping Therapeutic Activities Therapeutic Exercises Modalities Cold Pack/Ice Massage Electric Stimulation Hot Packs Infrared Therapy Traction- Mechanical Ultrasound Next Visit Focus/Plan Next Note Type Treatment Note Next Visit Plan check pt's symptoms after lumbar traction unit assess special test for L knee recumbent bike for knee mobility gentle trunk mobility, knee mobility gentle core strengthening and B LE strengthening as melissa
--- NOTE | 2019-01-01 13:12 | PT.OTN ---
Current Diagnoses Spondylosis without myelopathy or radiculopathy, lumbosacral region (01/01/19) Other intervertebral disc degeneration, lumbar region (01/01/19) Physical Therapy Treatment Note PT-OP-A Visit Information Start: 12/26/18 17:42 Freq: Status: Active Protocol: Document 01/01/19 13:01 SA (Rec: 01/01/19 13:12 SA [email or web address]) Out-Patient Physical Therapy Visit Information Visit Information Visit Type Treatment Note Visit Start Time 12:00 Visit Stop Time 12:46 Total Visit Minutes 46 Visit Number 2 Number of PATIENT RELATIONS REPRESENTATIVE Visits 1 PT-OP-B Current Condition Start: 12/26/18 17:42 Freq: Status: Active Protocol: Document 12/26/18 16:00 HH (Rec: 12/26/18 18:13 HH [email or web address]) Current Condition History of Current Condition Onset Date 6 years ago Current Complaints Chronic back pain and L knee pain, peripheral neuropathy, impaired gait History of Current Condition Pt presents to clinic with a referral from Dr. Rosario for lumbosacral spondylosis, Right SI, L knee and gait instability. Pt states his back pain started 6 years ago most likely because of her scoliosis. She has been getting cortisone injections every 6-9 months a year since then, and that seems to relieve her symptoms a little bit but keeps coming back. She reports nothing really helps (ice sometimes) her back and sitting & twisting make it worse; Pt's L knee pain started from last year for unknown reason, describes as cosntant ache at the knee joint. she also had injection to it but it didnt help. Pt has difficult time for prolonged walking, stair climing (downstair/downhill) and balancing due to pain. She often feels pins and needles around the knee area as well; Her B feet pain/ peripheral neuropathy started 2 years ago with unknown etiology. Pt is not diabetic but she has constant sharp pain, pins and needles and burning sensation on top of her B feet, and tends to feel numb at the bottom. She describes B big toes are the worst, and both feet are very sensitive to touch and pressure. Pt is still very active and independent. She is able to take 8000 steps /day and ride recumbent bike for 30 mins but cannot melissa more than these numbers due to severe L knee pain. Pt rated her L knee issue to be the worst, than B feet than her back at this point. Prior Treatments and Tests Multiplet cortisone injections at lumbar, hip and L knee preivous tx with PT with primarily TENS and ultrasound tx for her low back. Treatment Goals Patient/Caregiver Goals 1. Able to bike 45 mins on recumbent bike without pain 2. able to walk 3 times a day for a total of a mile 3. able to perform step over step during stair climbing. Prior Functional Status Baseline Function- ADL's Independent Baseline Function- Mobility Independent Current Functional Impairments (Reported) Functional Limitations- Mobility/Gait Pt is still currently very active and independent. She is able to take 8000 steps /day and ride recumbent bike for 30 mins but cannot melissa more than these numbers due to severe L knee pain. step to pattern during stair climbing Personal Factors Other Personal Factors That May Effect OA at back Therapy/Recovery TMJ B foot neuropathy scoliosis PT-OP-C Subjective Start: 12/26/18 17:42 Freq: Status: Active Protocol: Document 01/01/19 13:01 SA (Rec: 01/01/19 13:12 SA [email or web address]) OP-PT Subjective Patient Comments Patient Comments Pt reports with traction was helpful in decreasing back pain but did not change redicular symptoms. PT-OP-G Mobility & Gait Start: 12/26/18 17:42 Freq: Status: Active Protocol: Document 12/26/18 16:00 (Rec: 12/27/18 13:04 [id number]) OP Gait Assessment Gait Gait Assistance Required: Independent Assistive Devices Assistive Device None Orthotic/Prosthetic Devices or Brace: No Gait Deviations General Gait Pattern Antalgic Decreased Stride Length Decreased Feet Clearance Factors Limiting Gait Function Factors Limiting Gait Function Decreased Activity Tolerance Decreased Strength Limited Range of Motion Pain Comments Gait Comments L antalgic gait with decreased heel strike and time spent on stance phase on LLE PT-OP-H Neuro Start: 12/26/18 17:42 Freq: Status: Active Protocol: Document 12/26/18 16:00 HH (Rec: 12/27/18 13:05 [id number]) Sensation Evaluation Gross Sensation Gross Sensation Left LE Impaired Right LE Impaired Sensation Description Hyperesthesia Numbness [place]ing[place] Pins & [place] Burning Pain Dermatome Impairments L4 L5 S1 Deep Tendon Reflex & Clonus Assessment Deep Tendon Reflex Bilateral Patellar Deep Tendon Reflex 2+ Normal Bilateral Achilles Deep Tendon Reflex 2+ Normal PT-OP-J Posture/Palpation/Skin Start: 12/26/18 17:42 Freq: Status: Active Protocol: Document 12/26/18 16:00 (Rec: 12/27/18 13:04 [id number]) Posture Evaluation Position Standing Evaluation View Anterior Head/C-Spine Posture Forward Head T-Spine Posture Fixed Scoliosis on (R) L-Spine Posture Fixed Scoliosis on (L) Shoulder Posture (L) Rounded (R) Rounded Scapula Posture (R) Protracted Weight Distribution Weight Shifted Right Knee Posture (L) Excess Flexion Ankle/Foot Posture (L) Pronated Foot Arch (L) Low Arch PT-OP-K Range of Motion Start: 12/26/18 17:42 Freq: Status: Active Protocol: Document 12/26/18 16:00 (Rec: 12/27/18 13:04 [id number]) Lumbar Spine Range of Motion Lumbar Spine Percentage Testing Position Standing Flexion 60 Extension 40 Rotation Left 40 Rotation Right 40 Lateral Flexion Left 40 Lateral Flexion Right 40 ROM Limitations Soft Tissue Tightness Bony Restriction Muscle Weakness Pain Comments toe touch to mid michele only Lateral flexion with hands touch lateral mid thigh Knee Goniometric Range of Motion Knee Measured in Degrees Right Knee ROM WFL Yes Patient Position Supine Flexion Active (degrees) 135 Extension Active (degrees) 0 Left Knee ROM WFL Yes Patient Position Supine Flexion Active (degrees) 125 Extension Active (degrees) 5 PT-OP-L Special Tests Start: 12/26/18 17:42 Freq: Status: Active Protocol: Document 12/26/18 16:00 (Rec: 12/27/18 13:04 [id number]) Special Tests Lumbar Spine Special Tests A-P Shearing Test Results +ve Standing Flexion Test Results +ve Comments R thoracic and L lumbar scoliosis PT-OP-M Strength Start: 12/26/18 17:42 Freq: Status: Active Protocol: Document 12/26/18 16:00 (Rec: 12/27/18 13:04 [id number]) Hip Strength Hip Manual Muscle Testing Right Flexion (L2) 4+ Good+ Extension (S1) 4+ Good+ Abduction 4+ Good+ Adduction 4+ Good+ Left Flexion (L2) 4 Good Extension (S1) 4 Good Abduction 4- Good- Adduction 4 Good Knee Strength Knee Manual Muscle Testing Right Flexion (S2) 4+ Good+ Extension (L3) 4+ Good+ Left Flexion (S2) 4- Good- Extension (L3) 3+ Fair+ PT-OP-Q Treatments Start: 12/26/18 17:42 Freq: Status: Active Protocol: Document 01/01/19 13:01 SA (Rec: 01/01/19 13:12 SA [email or web address]) Cardio Equipment Recumbent Bicycle Duration (Minutes) 6 Resistance 5 Therapeutic Exercises Supine Exercises HS stretching Side bilateral Reps/Minutes 30 x 3 Lateral knee rocks Side bilateral Reps/Minutes 10x each TA activation with marching Side bilateral Reps/Minutes 10x each Comments symptom free PPT in supine Reps/Minutes 10x Comments tactile cues Manual Therapy Treatment Soft Tissue Mobilization 1 Body Location Lumbar paraspinals Mobilization Type Myofascial Release Rolling Strumming Intensity/Depth Superficial Body Position Sidelying Comments Relax/contract stretching to B HS PT-OP-R Modalities Start: 12/26/18 17:42 Freq: Status: Active Protocol: Document 12/26/18 16:00 (Rec: 12/27/18 12:54 [id number]) Spinal Traction Traction Treatment Lumbar Method Mechanical Patient Position Hooklying Force Applied (Pounds) 25 Duration of Treatment (Minutes) 12 Heating Pad Applied No PT-OP-T Assessment and Plan Start: 12/26/18 17:42 Freq: Status: Active Protocol: Document 01/01/19 13:01 SA (Rec: 01/01/19 13:12 SA [email or web address]) Physical Therapy Assessment Assessment Summary Assessment Pt tolerated mechanical traction well last visit and did again this visit. Pt to assess response to TA activation with marching and knee rocks and do as HEP if tolerated well after this visit, handout provided. Physical Therapy Plan Next Visit Focus/Plan Next Note Type Treatment Note Next Visit Plan Progress core stabilization, LE strengthening and dynamic balance as tolerated.
--- NOTE | 2019-01-15 15:20 | PT.OTN ---
Current Diagnoses Spondylosis without myelopathy or radiculopathy, lumbosacral region (01/15/19) Other intervertebral disc degeneration, lumbar region (01/15/19) Physical Therapy Treatment Note PT-OP-A Visit Information Start: 12/26/18 17:42 Freq: Status: Active Protocol: Document 01/15/19 15:20 RCC (Rec: 01/16/19 10:25 RCC [email or web address]) Out-Patient Physical Therapy Visit Information Visit Information Visit Type Treatment Note Visit Start Time 15:20 Visit Stop Time 16:05 Total Visit Minutes 45 Visit Number 3 Number of CONTENT PRODUCTION SPECIALIST Visits 0 Evaluation Information Evaluation Date 12/26/18 PT-OP-B Current Condition Start: 12/26/18 17:42 Freq: Status: Active Protocol: Document 12/26/18 16:00 HH (Rec: 12/26/18 18:13 HH [email or web address]) Current Condition History of Current Condition Onset Date 6 years ago Current Complaints Chronic back pain and L knee pain, peripheral neuropathy, impaired gait History of Current Condition Pt presents to clinic with a referral from Dr. Rosario for lumbosacral spondylosis, Right SI, L knee and gait instability. Pt states his back pain started 6 years ago most likely because of her scoliosis. She has been getting cortisone injections every 6-9 months a year since then, and that seems to relieve her symptoms a little bit but keeps coming back. She reports nothing really helps (ice sometimes) her back and sitting & twisting make it worse; Pt's L knee pain started from last year for unknown reason, describes as cosntant ache at the knee joint. she also had injection to it but it didnt help. Pt has difficult time for prolonged walking, stair climing (downstair/downhill) and balancing due to pain. She often feels pins and needles around the knee area as well; Her B feet pain/ peripheral neuropathy started 2 years ago with unknown etiology. Pt is not diabetic but she has constant sharp pain, pins and needles and burning sensation on top of her B feet, and tends to feel numb at the bottom. She describes B big toes are the worst, and both feet are very sensitive to touch and pressure. Pt is still very active and independent. She is able to take 8000 steps /day and ride recumbent bike for 30 mins but cannot melissa more than these numbers due to severe L knee pain. Pt rated her L knee issue to be the worst, than B feet than her back at this point. Prior Treatments and Tests Multiplet cortisone injections at lumbar, hip and L knee preivous tx with PT with primarily TENS and ultrasound tx for her low back. Treatment Goals Patient/Caregiver Goals 1. Able to bike 45 mins on recumbent bike without pain 2. able to walk 3 times a day for a total of a mile 3. able to perform step over step during stair climbing. Prior Functional Status Baseline Function- ADL's Independent Baseline Function- Mobility Independent Current Functional Impairments (Reported) Functional Limitations- Mobility/Gait Pt is still currently very active and independent. She is able to take 8000 steps /day and ride recumbent bike for 30 mins but cannot melissa more than these numbers due to severe L knee pain. step to pattern during stair climbing Personal Factors Other Personal Factors That May Effect OA at back Therapy/Recovery TMJ B foot neuropathy scoliosis PT-OP-C Subjective Start: 12/26/18 17:42 Freq: Status: Active Protocol: Document 01/15/19 15:20 RCC (Rec: 01/16/19 10:25 RCC [email or web address]) OP-PT Subjective Patient Comments Patient Comments Pt reports her pain is worse over the past two weeks, with difficulty walking. She has not done any of her HEP due to pain. PT-OP-F Manual Assessment Start: 12/26/18 17:42 Freq: Status: Active Protocol: Document 01/15/19 15:20 RCC (Rec: 01/16/19 10:25 RCC [email or web address]) Manual Assessments Other Manual Assessments Other Manual Assessments R posterior ilial rotation PT-OP-G Mobility & Gait Start: 12/26/18 17:42 Freq: Status: Active Protocol: Document 12/26/18 16:00 HH (Rec: 12/27/18 13:04 HH [id number]) OP Gait Assessment Gait Gait Assistance Required: Independent Assistive Devices Assistive Device None Orthotic/Prosthetic Devices or Brace: No Gait Deviations General Gait Pattern Antalgic Decreased Stride Length Decreased Feet Clearance Factors Limiting Gait Function Factors Limiting Gait Function Decreased Activity Tolerance Decreased Strength Limited Range of Motion Pain Comments Gait Comments L antalgic gait with decreased heel strike and time spent on stance phase on LLE PT-OP-H Neuro Start: 12/26/18 17:42 Freq: Status: Active Protocol: Document 12/26/18 16:00 (Rec: 12/27/18 13:05 [id number]) Sensation Evaluation Gross Sensation Gross Sensation Left LE Impaired Right LE Impaired Sensation Description Hyperesthesia Numbness Tingling Pins & [place] Burning Pain Dermatome Impairments L4 L5 S1 Deep Tendon Reflex & Clonus Assessment Deep Tendon Reflex Bilateral Patellar Deep Tendon Reflex 2+ Normal Bilateral Achilles Deep Tendon Reflex 2+ Normal PT-OP-J Posture/Palpation/Skin Start: 12/26/18 17:42 Freq: Status: Active Protocol: Document 12/26/18 16:00 (Rec: 12/27/18 13:04 [id number]) Posture Evaluation Position Standing Evaluation View Anterior Head/C-Spine Posture Forward Head T-Spine Posture Fixed Scoliosis on (R) L-Spine Posture Fixed Scoliosis on (L) Shoulder Posture (L) Rounded (R) Rounded Scapula Posture (R) Protracted Weight Distribution Weight Shifted Right Knee Posture (L) Excess Flexion Ankle/Foot Posture (L) Pronated Foot Arch (L) Low Arch PT-OP-K Range of Motion Start: 12/26/18 17:42 Freq: Status: Active Protocol: Document 12/26/18 16:00 (Rec: 12/27/18 13:04 [id number]) Lumbar Spine Range of Motion Lumbar Spine Percentage Testing Position Standing Flexion 60 Extension 40 Rotation Left 40 Rotation Right 40 Lateral Flexion Left 40 Lateral Flexion Right 40 ROM Limitations Soft Tissue Tightness Bony Restriction Muscle Weakness Pain Comments toe touch to mid michele only Lateral flexion with hands touch lateral mid thigh Knee Goniometric Range of Motion Knee Measured in Degrees Right Knee ROM WFL Yes Patient Position Supine Flexion Active (degrees) 135 Extension Active (degrees) 0 Left Knee ROM WFL Yes Patient Position Supine Flexion Active (degrees) 125 Extension Active (degrees) 5 PT-OP-L Special Tests Start: 12/26/18 17:42 Freq: Status: Active Protocol: Document 01/15/19 15:20 RCC (Rec: 01/16/19 10:26 RCC [email or web address]) Special Tests Knee Special Tests Cristobal's Test Results negative L Varus- 25 Degrees Test Results negative L Varus- 0 Degrees Test Results negative L Valgus- 25 Degrees Test Results negative L Valgus- 0 Degrees Test Results negative L Andrew Test Test Results negative L Anterior Draw Test Results negative L PT-OP-M Strength Start: 12/26/18 17:42 Freq: Status: Active Protocol: Document 12/26/18 16:00 HH (Rec: 12/27/18 13:04 [id number]) Hip Strength Hip Manual Muscle Testing Right Flexion (L2) 4+ Good+ Extension (S1) 4+ Good+ Abduction 4+ Good+ Adduction 4+ Good+ Left Flexion (L2) 4 Good Extension (S1) 4 Good Abduction 4- Good- Adduction 4 Good Knee Strength Knee Manual Muscle Testing Right Flexion (S2) 4+ Good+ Extension (L3) 4+ Good+ Left Flexion (S2) 4- Good- Extension (L3) 3+ Fair+ PT-OP-Q Treatments Start: 12/26/18 17:42 Freq: Status: Active Protocol: Document 01/15/19 15:20 RCC (Rec: 01/16/19 10:25 RCC [email or web address]) Therapeutic Exercises Supine Exercises TA activation Supine Exercise Name gentle- no marching Side bilateral Reps/Minutes x10 Comments added for HEP PPT in supine Reps/Minutes 10x Comments tactile cues Manual Therapy Treatment Soft Tissue Mobilization R QL, piriformis and gluteals Body Location right Mobilization Type Myofascial Release Rolling Intensity/Depth Superficial Body Position Sidelying 1 Body Location Lumbar paraspinals Mobilization Type Myofascial Release Rolling Strumming Intensity/Depth Superficial Body Position Sidelying Comments Relax/contract stretching to B HS Manual Techniques MET Type R hip flex, L hip ext followed by B hip add Body Position Hooklying Reps/Duration 5 min Comments to correct post. ilial rotation R Other Other Manual Treatments L knee special tests PT-OP-R Modalities Start: 12/26/18 17:42 Freq: Status: Active Protocol: Document 01/15/19 15:20 RCC (Rec: 01/16/19 10:25 RCC [email or web address]) Hot Pack/Cold Pack Treatment Cold Pack Location lumbosacral, L lateral knee Patient Position Hooklying Treatment Duration (minutes) 10 Patient Tolerance Good PT-OP-T Assessment and Plan Start: 12/26/18 17:42 Freq: Status: Active Protocol: Document 01/15/19 15:20 RCC (Rec: 01/16/19 10:25 RCC [email or web address]) Physical Therapy Assessment Assessment Summary Assessment Pt flared up with high sensitivity on the R side of piriformis, gluteals, and paraspinals. Neutral ilium achieved with MET. Performed and encouraged pt to perform TA activation at home for core stability, but likely will need to gradually increase core stabilization due to severity of pain. No ligamentous laxity in the L knee, could potentially be OA of patella and PF dysfunction. Physical Therapy Plan Next Visit Focus/Plan Next Note Type Treatment Note Next Visit Plan gentle return to core stabilization, L knee alignment training- quad sets if tolerable.
--- NOTE | 2019-01-21 09:45 | PT.OTN ---
Current Diagnoses Spondylosis without myelopathy or radiculopathy, lumbosacral region (01/21/19) Other intervertebral disc degeneration, lumbar region (01/21/19) Physical Therapy Treatment Note PT-OP-A Visit Information Start: 12/26/18 17:42 Freq: Status: Active Protocol: Document 01/21/19 09:45 DLM (Rec: 01/21/19 13:51 DLM [id number]) Out-Patient Physical Therapy Visit Information Visit Information Visit Type Treatment Note Visit Start Time 09:45 Visit Stop Time 10:31 Total Visit Minutes 46 Visit Number 4 Number of FLEET SALESPERSON Visits 0 Evaluation Information Evaluation Date 12/26/18 PT-OP-B Current Condition Start: 12/26/18 17:42 Freq: Status: Active Protocol: Document 12/26/18 16:00 HH (Rec: 12/26/18 18:13 HH [email or web address]) Current Condition History of Current Condition Onset Date 6 years ago Current Complaints Chronic back pain and L knee pain, peripheral neuropathy, impaired gait History of Current Condition Pt presents to clinic with a referral from Dr. Rosario for lumbosacral spondylosis, Right SI, L knee and gait instability. Pt states his back pain started 6 years ago most likely because of her scoliosis. She has been getting cortisone injections every 6-9 months a year since then, and that seems to relieve her symptoms a little bit but keeps coming back. She reports nothing really helps (ice sometimes) her back and sitting & twisting make it worse; Pt's L knee pain started from last year for unknown reason, describes as cosntant ache at the knee joint. she also had injection to it but it didnt help. Pt has difficult time for prolonged walking, stair climing (downstair/downhill) and balancing due to pain. She often feels pins and needles around the knee area as well; Her B feet pain/ peripheral neuropathy started 2 years ago with unknown etiology. Pt is not diabetic but she has constant sharp pain, pins and needles and burning sensation on top of her B feet, and tends to feel numb at the bottom. She describes B big toes are the worst, and both feet are very sensitive to touch and pressure. Pt is still very active and independent. She is able to take 8000 steps /day and ride recumbent bike for 30 mins but cannot melissa more than these numbers due to severe L knee pain. Pt rated her L knee issue to be the worst, than B feet than her back at this point. Prior Treatments and Tests Multiplet cortisone injections at lumbar, hip and L knee preivous tx with PT with primarily TENS and ultrasound tx for her low back. Treatment Goals Patient/Caregiver Goals 1. Able to bike 45 mins on recumbent bike without pain 2. able to walk 3 times a day for a total of a mile 3. able to perform step over step during stair climbing. Prior Functional Status Baseline Function- ADL's Independent Baseline Function- Mobility Independent Current Functional Impairments (Reported) Functional Limitations- Mobility/Gait Pt is still currently very active and independent. She is able to take 8000 steps /day and ride recumbent bike for 30 mins but cannot melissa more than these numbers due to severe L knee pain. step to pattern during stair climbing Personal Factors Other Personal Factors That May Effect OA at back Therapy/Recovery TMJ B foot neuropathy scoliosis PT-OP-C Subjective Start: 12/26/18 17:42 Freq: Status: Active Protocol: Document 01/21/19 09:45 DLM (Rec: 01/21/19 13:51 DLM [id number]) OP-PT Subjective Patient Comments Patient Comments The first 2 therapy visits made her pain worse. She felt 60% better after the last visit with Noe. She continues to use TENS and ice at home regularly to manage her pain. Her pain today is the worst in her right buttock. PT-OP-F Manual Assessment Start: 12/26/18 17:42 Freq: Status: Active Protocol: Document 01/15/19 15:20 RCC (Rec: 01/16/19 10:25 RCC [email or web address]) Manual Assessments Other Manual Assessments Other Manual Assessments R posterior ilial rotation PT-OP-G Mobility & Gait Start: 12/26/18 17:42 Freq: Status: Active Protocol: Document 12/26/18 16:00 HH (Rec: 12/27/18 13:04 HH [id number]) OP Gait Assessment Gait Gait Assistance Required: Independent Assistive Devices Assistive Device None Orthotic/Prosthetic Devices or Brace: No Gait Deviations General Gait Pattern Antalgic Decreased Stride Length Decreased Feet Clearance Factors Limiting Gait Function Factors Limiting Gait Function Decreased Activity Tolerance Decreased Strength Limited Range of Motion Pain Comments Gait Comments L antalgic gait with decreased heel strike and time spent on stance phase on LLE PT-OP-H Neuro Start: 12/26/18 17:42 Freq: Status: Active Protocol: Document 12/26/18 16:00 (Rec: 12/27/18 13:05 [id number]) Sensation Evaluation Gross Sensation Gross Sensation Left LE Impaired Right LE Impaired Sensation Description Hyperesthesia Numbness Tingling Pins & [place] Burning Pain Dermatome Impairments L4 L5 S1 Deep Tendon Reflex & Clonus Assessment Deep Tendon Reflex Bilateral Patellar Deep Tendon Reflex 2+ Normal Bilateral Achilles Deep Tendon Reflex 2+ Normal PT-OP-J Posture/Palpation/Skin Start: 12/26/18 17:42 Freq: Status: Active Protocol: Document 12/26/18 16:00 (Rec: 12/27/18 13:04 [id number]) Posture Evaluation Position Standing Evaluation View Anterior Head/C-Spine Posture Forward Head T-Spine Posture Fixed Scoliosis on (R) L-Spine Posture Fixed Scoliosis on (L) Shoulder Posture (L) Rounded (R) Rounded Scapula Posture (R) Protracted Weight Distribution Weight Shifted Right Knee Posture (L) Excess Flexion Ankle/Foot Posture (L) Pronated Foot Arch (L) Low Arch PT-OP-K Range of Motion Start: 12/26/18 17:42 Freq: Status: Active Protocol: Document 12/26/18 16:00 (Rec: 12/27/18 13:04 [id number]) Lumbar Spine Range of Motion Lumbar Spine Percentage Testing Position Standing Flexion 60 Extension 40 Rotation Left 40 Rotation Right 40 Lateral Flexion Left 40 Lateral Flexion Right 40 ROM Limitations Soft Tissue Tightness Bony Restriction Muscle Weakness Pain Comments toe touch to mid michele only Lateral flexion with hands touch lateral mid thigh Knee Goniometric Range of Motion Knee Measured in Degrees Right Knee ROM WFL Yes Patient Position Supine Flexion Active (degrees) 135 Extension Active (degrees) 0 Left Knee ROM WFL Yes Patient Position Supine Flexion Active (degrees) 125 Extension Active (degrees) 5 PT-OP-L Special Tests Start: 12/26/18 17:42 Freq: Status: Active Protocol: Document 01/15/19 15:20 RCC (Rec: 01/16/19 10:26 RCC [email or web address]) Special Tests Knee Special Tests Cristobal's Test Results negative L Varus- 25 Degrees Test Results negative L Varus- 0 Degrees Test Results negative L Valgus- 25 Degrees Test Results negative L Valgus- 0 Degrees Test Results negative L Andrew Test Test Results negative L Anterior Draw Test Results negative L PT-OP-M Strength Start: 12/26/18 17:42 Freq: Status: Active Protocol: Document 12/26/18 16:00 HH (Rec: 12/27/18 13:04 [id number]) Hip Strength Hip Manual Muscle Testing Right Flexion (L2) 4+ Good+ Extension (S1) 4+ Good+ Abduction 4+ Good+ Adduction 4+ Good+ Left Flexion (L2) 4 Good Extension (S1) 4 Good Abduction 4- Good- Adduction 4 Good Knee Strength Knee Manual Muscle Testing Right Flexion (S2) 4+ Good+ Extension (L3) 4+ Good+ Left Flexion (S2) 4- Good- Extension (L3) 3+ Fair+ PT-OP-Q Treatments Start: 12/26/18 17:42 Freq: Status: Active Protocol: Document 01/21/19 09:45 DLM (Rec: 01/21/19 13:51 DLM [id number]) Therapeutic Exercises Supine Exercises TA activation Supine Exercise Name TVA activation, hooklying Side bilateral Reps/Minutes x10 Comments doing for HEP, cuing to only use hands to monitor muscle activation HS stretching Supine Exercise Name HS stretch Side bilateral Reps/Minutes 30 x 3 reps Comments manual assisted, to pain tolerance Lateral knee rocks Comments Stopped since they increase her radicular pain 2 Supine Exercise Name Core stabilization with alternating knee drop outs Side bilateral Reps/Minutes x 5 reps, alternating LE's Comments added to HEP 1 Supine Exercise Name Single Knee to chest Side bilateral Reps/Minutes 5 reps each side Sidelying Exercises 1 Sidelying Exercise Name Clamshells Side bilateral Reps/Minutes x 10 reps Manual Therapy Treatment Soft Tissue Mobilization R QL, piriformis and gluteals Body Location right Mobilization Type Myofascial Release Rolling Intensity/Depth Superficial Body Position Prone 2 Body Location long leg distraction Body Position Supine Comments x 3 reps bilaterally to pain tolerance Manual Techniques MET Type R hip flex, L hip ext followed by B hip add Body Position Hooklying Reps/Duration 5 min Comments to correct post. ilial rotation R PT-OP-R Modalities Start: 12/26/18 17:42 Freq: Status: Active Protocol: Document 01/21/19 09:45 DLM (Rec: 01/21/19 13:51 DLM [id number]) Hot Pack/Cold Pack Treatment Cold Pack Comments pt reports she wants to ice at home PT-OP-T Assessment and Plan Start: 12/26/18 17:42 Freq: Status: Active Protocol: Document 01/21/19 09:45 DLM (Rec: 01/21/19 13:51 DLM [id number]) Physical Therapy Assessment Goals Strength Correction Goal (LTG) pt will increase her lumbar and L knee strength by 1 MMT grade therefore pt will be improve her single leg strength and balance for functional activties such as stair climbing LTG Duration 12 weeks pain Impairment severe pain during mobility Short Term Goal (STG) Pt will be able to decrease her overall pain level for low back and L knee by 2/10 points during mobility to improve her quality of life STG Duration 6 weeks Correction Goal (LTG) .Pt will be able to decrease her overall pain level for low back and L knee by 4/10 points during mobility to improve her quality of life LTG Duration 12 weeks functional activity Impairment stair climbing Computational Scientist Goal (LTG) Pt will be able to use step over pattern with 1 railing during stair climbing. LTG Duration 12 weeks activity tolerance Impairment impaired activity tolerance Computational Scientist Goal (LTG) Pt will be able to walk > 1mile a day and melissa 45 mins of recumbent bike ride without L knee pain. LTG Duration 12 weeks Progress Towards Goals Progress Towards Goals Progressing Toward Goals Progress Comments had to modify her exercises Assessment Summary Assessment She reports good pain improvement with manual therapy. Had to stop rotational exercises since they increase her radicular symptoms. She prefers to do ice and TENS at home. Will need to progress her exercises slowly to avoid pain flare-up . Physical Therapy Plan Frequency and Duration Frequency of Treatment 2x/Week Duration of Treatment 12 weeks Plan of Care Start Date 12/26/18 Plan of Care End Date 03/27/19 Therapeutic Interventions Therapeutic Interventions Aquatic Therapy Balance Training Gait Training Home Exercise Program Joint Mobilizations Manual Therapy Neuromuscular Re-education Patient/Caregiver Education Self-Care/Home Management Soft Tissue Mobilization Taping Therapeutic Activities Therapeutic Exercises Modalities Cold Pack/Ice Massage Electric Stimulation Hot Packs Infrared Therapy Traction- Mechanical Ultrasound Next Visit Focus/Plan Next Note Type Treatment Note Next Visit Plan gentle return to core stabilization, L knee alignment training- quad sets if tolerable.
--- NOTE | 2019-01-23 09:45 | PT.OTN ---
Current Diagnoses Spondylosis without myelopathy or radiculopathy, lumbosacral region (01/23/19) Other intervertebral disc degeneration, lumbar region (01/23/19) Physical Therapy Treatment Note PT-OP-A Visit Information Start: 12/26/18 17:42 Freq: Status: Active Protocol: Document 01/23/19 09:45 DLM (Rec: 01/23/19 15:39 DLM [id number]) Out-Patient Physical Therapy Visit Information Visit Information Visit Type Treatment Note Visit Start Time 09:45 Visit Stop Time 10:30 Total Visit Minutes 45 Visit Number 5 Number of FLAT DRIER Visits 0 Evaluation Information Evaluation Date 12/26/18 Precautions Precautions Latex/adhesive sensativity PT-OP-B Current Condition Start: 12/26/18 17:42 Freq: Status: Active Protocol: Document 12/26/18 16:00 HH (Rec: 12/26/18 18:13 HH [email or web address]) Current Condition History of Current Condition Onset Date 6 years ago Current Complaints Chronic back pain and L knee pain, peripheral neuropathy, impaired gait History of Current Condition Pt presents to clinic with a referral from Dr. Rosario for lumbosacral spondylosis, Right SI, L knee and gait instability. Pt states his back pain started 6 years ago most likely because of her scoliosis. She has been getting cortisone injections every 6-9 months a year since then, and that seems to relieve her symptoms a little bit but keeps coming back. She reports nothing really helps (ice sometimes) her back and sitting & twisting make it worse; Pt's L knee pain started from last year for unknown reason, describes as cosntant ache at the knee joint. she also had injection to it but it didnt help. Pt has difficult time for prolonged walking, stair climing (downstair/downhill) and balancing due to pain. She often feels pins and needles around the knee area as well; Her B feet pain/ peripheral neuropathy started 2 years ago with unknown etiology. Pt is not diabetic but she has constant sharp pain, pins and needles and burning sensation on top of her B feet, and tends to feel numb at the bottom. She describes B big toes are the worst, and both feet are very sensitive to touch and pressure. Pt is still very active and independent. She is able to take 8000 steps /day and ride recumbent bike for 30 mins but cannot melissa more than these numbers due to severe L knee pain. Pt rated her L knee issue to be the worst, than B feet than her back at this point. Prior Treatments and Tests Multiplet cortisone injections at lumbar, hip and L knee preivous tx with PT with primarily TENS and ultrasound tx for her low back. Treatment Goals Patient/Caregiver Goals 1. Able to bike 45 mins on recumbent bike without pain 2. able to walk 3 times a day for a total of a mile 3. able to perform step over step during stair climbing. Prior Functional Status Baseline Function- ADL's Independent Baseline Function- Mobility Independent Current Functional Impairments (Reported) Functional Limitations- Mobility/Gait Pt is still currently very active and independent. She is able to take 8000 steps /day and ride recumbent bike for 30 mins but cannot melissa more than these numbers due to severe L knee pain. step to pattern during stair climbing Personal Factors Other Personal Factors That May Effect OA at back Therapy/Recovery TMJ B foot neuropathy scoliosis PT-OP-C Subjective Start: 12/26/18 17:42 Freq: Status: Active Protocol: Document 01/23/19 09:45 DLM (Rec: 01/23/19 15:39 DLM [id number]) OP-PT Subjective Patient Comments Patient Comments The pain is only in her buttock area today. She got increased pain if she tried to do single knee to chest ex at home but able to do the LE drop-outs ok. OP-PT Pain Assessment Location Right Back Intensity 7 Scale Used Numeric (1 - 10) Description Aching Sharp PT-OP-F Manual Assessment Start: 12/26/18 17:42 Freq: Status: Active Protocol: Document 01/15/19 15:20 RCC (Rec: 01/16/19 10:25 RCC [email or web address]) Manual Assessments Other Manual Assessments Other Manual Assessments R posterior ilial rotation PT-OP-G Mobility & Gait Start: 12/26/18 17:42 Freq: Status: Active Protocol: Document 12/26/18 16:00 HH (Rec: 12/27/18 13:04 HH [id number]) OP Gait Assessment Gait Gait Assistance Required: Independent Assistive Devices Assistive Device None Orthotic/Prosthetic Devices or Brace: No Gait Deviations General Gait Pattern Antalgic Decreased Stride Length Decreased Feet Clearance Factors Limiting Gait Function Factors Limiting Gait Function Decreased Activity Tolerance Decreased Strength Limited Range of Motion Pain Comments Gait Comments L antalgic gait with decreased heel strike and time spent on stance phase on LLE PT-OP-H Neuro Start: 12/26/18 17:42 Freq: Status: Active Protocol: Document 12/26/18 16:00 (Rec: 12/27/18 13:05 [id number]) Sensation Evaluation Gross Sensation Gross Sensation Left LE Impaired Right LE Impaired Sensation Description Hyperesthesia Numbness Tingling Pins & [place] Burning Pain Dermatome Impairments L4 L5 S1 Deep Tendon Reflex & Clonus Assessment Deep Tendon Reflex Bilateral Patellar Deep Tendon Reflex 2+ Normal Bilateral Achilles Deep Tendon Reflex 2+ Normal PT-OP-J Posture/Palpation/Skin Start: 12/26/18 17:42 Freq: Status: Active Protocol: Document 12/26/18 16:00 (Rec: 12/27/18 13:04 [id number]) Posture Evaluation Position Standing Evaluation View Anterior Head/C-Spine Posture Forward Head T-Spine Posture Fixed Scoliosis on (R) L-Spine Posture Fixed Scoliosis on (L) Shoulder Posture (L) Rounded (R) Rounded Scapula Posture (R) Protracted Weight Distribution Weight Shifted Right Knee Posture (L) Excess Flexion Ankle/Foot Posture (L) Pronated Foot Arch (L) Low Arch PT-OP-K Range of Motion Start: 12/26/18 17:42 Freq: Status: Active Protocol: Document 12/26/18 16:00 (Rec: 12/27/18 13:04 [id number]) Lumbar Spine Range of Motion Lumbar Spine Percentage Testing Position Standing Flexion 60 Extension 40 Rotation Left 40 Rotation Right 40 Lateral Flexion Left 40 Lateral Flexion Right 40 ROM Limitations Soft Tissue Tightness Bony Restriction Muscle Weakness Pain Comments toe touch to mid michele only Lateral flexion with hands touch lateral mid thigh Knee Goniometric Range of Motion Knee Measured in Degrees Right Knee ROM WFL Yes Patient Position Supine Flexion Active (degrees) 135 Extension Active (degrees) 0 Left Knee ROM WFL Yes Patient Position Supine Flexion Active (degrees) 125 Extension Active (degrees) 5 PT-OP-L Special Tests Start: 12/26/18 17:42 Freq: Status: Active Protocol: Document 01/15/19 15:20 RCC (Rec: 01/16/19 10:26 RCC [email or web address]) Special Tests Knee Special Tests Cristobal's Test Results negative L Varus- 25 Degrees Test Results negative L Varus- 0 Degrees Test Results negative L Valgus- 25 Degrees Test Results negative L Valgus- 0 Degrees Test Results negative L Andrew Test Test Results negative L Anterior Draw Test Results negative L PT-OP-M Strength Start: 12/26/18 17:42 Freq: Status: Active Protocol: Document 12/26/18 16:00 HH (Rec: 12/27/18 13:04 [id number]) Hip Strength Hip Manual Muscle Testing Right Flexion (L2) 4+ Good+ Extension (S1) 4+ Good+ Abduction 4+ Good+ Adduction 4+ Good+ Left Flexion (L2) 4 Good Extension (S1) 4 Good Abduction 4- Good- Adduction 4 Good Knee Strength Knee Manual Muscle Testing Right Flexion (S2) 4+ Good+ Extension (L3) 4+ Good+ Left Flexion (S2) 4- Good- Extension (L3) 3+ Fair+ PT-OP-Q Treatments Start: 12/26/18 17:42 Freq: Status: Active Protocol: Document 01/23/19 09:45 DLM (Rec: 01/23/19 15:39 DLM [id number]) Therapeutic Exercises Supine Exercises TA activation Supine Exercise Name TVA activation, hooklying Side bilateral Reps/Minutes x10 Comments doing for HEP, cuing to only use hands to monitor muscle activation HS stretching Supine Exercise Name HS stretch Side bilateral Reps/Minutes 30 x 3 reps Comments manual assisted, to pain tolerance Lateral knee rocks Comments Stopped since they increase her radicular pain 5 Supine Exercise Name Hooklying hip ADduction Side bilateral Equipment Used pillow between knees Reps/Minutes x 10 reps 4 Supine Exercise Name Hooklying hip abduction Side bilateral Equipment Used Level 3 theraband Reps/Minutes 10 reps 3 Supine Exercise Name Quad set Side bilateral Reps/Minutes 5 sec hold x 10 reps each 2 Supine Exercise Name Core stabalization with alternating knee drop outs Side bilateral Reps/Minutes x 5 reps, alternating LE's Comments added to HEP 1 Supine Exercise Name Single Knee to chest Side left Reps/Minutes 3 reps Comments stopped right side due to increases her pain Sidelying Exercises 1 Sidelying Exercise Name Clamshells Side bilateral Reps/Minutes x 10 reps each Manual Therapy Treatment Soft Tissue Mobilization R QL, piriformis and gluteals Body Location right Mobilization Type Myofascial Release Rolling Sustained Pressure Intensity/Depth Moderate Body Position Prone Taping 1 Body Location left knee Treatment Focus joint support Type of Tape Kinesio Tape Skin Inspection intact Comments 2 strips, one each side of knee. Pt instructed to remove tape if any signs of skin irritation. Pt to remove tape before or at 2 days. Manual Techniques MET Type R hip flex, L hip ext followed by B hip add Body Position Hooklying Reps/Duration 5 min Comments to correct post. ilial rotation R PT-OP-R Modalities Start: 12/26/18 17:42 Freq: Status: Active Protocol: Document 01/23/19 09:45 DLM (Rec: 01/23/19 15:39 DLM [id number]) Hot Pack/Cold Pack Treatment Cold Pack Comments pt reports she wants to ice at home PT-OP-T Assessment and Plan Start: 12/26/18 17:42 Freq: Status: Active Protocol: Document 01/23/19 09:45 DLM (Rec: 01/23/19 15:39 DLM [id number]) Physical Therapy Assessment Goals Strength Tax Manager Cpa Goal (LTG) pt will increase her lumbar and L knee strength by 1 MMT grade therefore pt will be improve her single leg strength and balance for functional activties such as stair climbing LTG Duration 12 weeks pain Impairment severe pain during mobility Short Term Goal (STG) Pt will be able to decrease her overall pain level for low back and L knee by 2/10 points during mobility to improve her quality of life STG Duration 6 weeks Tax Manager Cpa Goal (LTG) .Pt will be able to decrease her overall pain level for low back and L knee by 4/10 points during mobility to improve her quality of life LTG Duration 12 weeks functional activity Impairment stair climbing Fci Goal (LTG) Pt will be able to use step over pattern with 1 railing during stair climbing. LTG Duration 12 weeks activity tolerance Impairment impaired activity tolerance Tax Manager Cpa Goal (LTG) Pt will be able to walk > 1mile a day and melissa 45 mins of recumbent bike ride without L knee pain. LTG Duration 12 weeks Progress Towards Goals Progress Towards Goals Progressing Toward Goals Progress Comments continue to modify her exercise to manage her pain Assessment Summary Assessment Bella reports feeling better at the end of this visit. She tolerated the exercises well with some modifications. She has a re-occuring right ant pelvic rotation that corrects easily but is unstable at this time and be exacerbated with exercises. She prefers to ice at home. Will focus on core stabalization to improve over- all stability and avoid hypermobility. Pt requested to try kinesiotape. Unsure how her skin will respond due to history of sensativity. Physical Therapy Plan Frequency and Duration Frequency of Treatment 2x/Week Duration of Treatment 12 weeks Plan of Care Start Date 12/26/18 Plan of Care End Date 03/27/19 Therapeutic Interventions Therapeutic Interventions Aquatic Therapy Balance Training Gait Training Home Exercise Program Joint Mobilizations Manual Therapy Neuromuscular Re-education Patient/Caregiver Education Self-Care/Home Management Soft Tissue Mobilization Taping Therapeutic Activities Therapeutic Exercises Modalities Cold Pack/Ice Massage Electric Stimulation Hot Packs Infrared Therapy Traction- Mechanical Ultrasound Next Visit Focus/Plan Next Note Type Treatment Note Next Visit Plan assess response to taping, modify taping of knee if her skin can tolerate the tape, continue to advance core stabalization
--- NOTE | 2019-02-05 09:00 | PT.OTN ---
Current Diagnoses Spondylosis without myelopathy or radiculopathy, lumbosacral region (02/05/19) Other intervertebral disc degeneration, lumbar region (02/05/19) Physical Therapy Treatment Note PT-OP-A Visit Information Start: 12/26/18 17:42 Freq: Status: Active Protocol: Document 02/05/19 09:00 DLM (Rec: 02/05/19 10:10 DLM [id number]) Out-Patient Physical Therapy Visit Information Visit Information Visit Type Treatment Note Visit Start Time 09:00 Visit Stop Time 09:50 Total Visit Minutes 50 Visit Number 6 Number of EQUIPMENT APPLICATION SPECIALIST Visits 0 Evaluation Information Evaluation Date 12/26/18 Precautions Precautions Latex/adhesive sensativity PT-OP-B Current Condition Start: 12/26/18 17:42 Freq: Status: Active Protocol: Document 12/26/18 16:00 HH (Rec: 12/26/18 18:13 HH [email or web address]) Current Condition History of Current Condition Onset Date 6 years ago Current Complaints Chronic back pain and L knee pain, peripheral neuropathy, impaired gait History of Current Condition Pt presents to clinic with a referral from Dr. Rosario for lumbosacral spondylosis, Right SI, L knee and gait instability. Pt states his back pain started 6 years ago most likely because of her scoliosis. She has been getting cortisone injections every 6-9 months a year since then, and that seems to relieve her symptoms a little bit but keeps coming back. She reports nothing really helps (ice sometimes) her back and sitting & twisting make it worse; Pt's L knee pain started from last year for unknown reason, describes as cosntant ache at the knee joint. she also had injection to it but it didnt help. Pt has difficult time for prolonged walking, stair climing (downstair/downhill) and balancing due to pain. She often feels pins and needles around the knee area as well; Her B feet pain/ peripheral neuropathy started 2 years ago with unknown etiology. Pt is not diabetic but she has constant sharp pain, pins and needles and burning sensation on top of her B feet, and tends to feel numb at the bottom. She describes B big toes are the worst, and both feet are very sensitive to touch and pressure. Pt is still very active and independent. She is able to take 8000 steps /day and ride recumbent bike for 30 mins but cannot melissa more than these numbers due to severe L knee pain. Pt rated her L knee issue to be the worst, than B feet than her back at this point. Prior Treatments and Tests Multiplet cortisone injections at lumbar, hip and L knee preivous tx with PT with primarily TENS and ultrasound tx for her low back. Treatment Goals Patient/Caregiver Goals 1. Able to bike 45 mins on recumbent bike without pain 2. able to walk 3 times a day for a total of a mile 3. able to perform step over step during stair climbing. Prior Functional Status Baseline Function- ADL's Independent Baseline Function- Mobility Independent Current Functional Impairments (Reported) Functional Limitations- Mobility/Gait Pt is still currently very active and independent. She is able to take 8000 steps /day and ride recumbent bike for 30 mins but cannot melissa more than these numbers due to severe L knee pain. step to pattern during stair climbing Personal Factors Other Personal Factors That May Effect OA at back Therapy/Recovery TMJ B foot neuropathy scoliosis PT-OP-C Subjective Start: 12/26/18 17:42 Freq: Status: Active Protocol: Document 02/05/19 09:00 DLM (Rec: 02/05/19 10:10 DLM [id number]) OP-PT Subjective Patient Comments Patient Comments The tape started to get itchy by the end of the day so she took it off. She feels she is doing better over-all. Her bursa felt better after last visit on left. She can not do stairs step-over step most of the time. She cane ride her recumbent bike for 20-30 min at at time on low resistance ( high resistance increases her knee pain). She is taking walks for 20-30 min at at a time. They offered her another injection but she is doing so well she thinks she will wait . Patient Reported Progress Improving OP-PT Pain Assessment Location Left Knee Intensity 6 Scale Used Numeric (1 - 10) Right Back Intensity 6 Scale Used Numeric (1 - 10) Description Aching PT-OP-F Manual Assessment Start: 12/26/18 17:42 Freq: Status: Active Protocol: Document 01/15/19 15:20 RCC (Rec: 01/16/19 10:25 RCC [email or web address]) Manual Assessments Other Manual Assessments Other Manual Assessments R posterior ilial rotation PT-OP-G Mobility & Gait Start: 12/26/18 17:42 Freq: Status: Active Protocol: Document 12/26/18 16:00 (Rec: 12/27/18 13:04 [id number]) OP Gait Assessment Gait Gait Assistance Required: Independent Assistive Devices Assistive Device None Orthotic/Prosthetic Devices or Brace: No Gait Deviations General Gait Pattern Antalgic Decreased Stride Length Decreased Feet Clearance Factors Limiting Gait Function Factors Limiting Gait Function Decreased Activity Tolerance Decreased Strength Limited Range of Motion Pain Comments Gait Comments L antalgic gait with decreased heel strike and time spent on stance phase on LLE PT-OP-H Neuro Start: 12/26/18 17:42 Freq: Status: Active Protocol: Document 12/26/18 16:00 (Rec: 12/27/18 13:05 [id number]) Sensation Evaluation Gross Sensation Gross Sensation Left LE Impaired Right LE Impaired Sensation Description Hyperesthesia Numbness [place] & [place] Burning Pain Dermatome Impairments L4 L5 S1 Deep Tendon Reflex & Clonus Assessment Deep Tendon Reflex Bilateral Patellar Deep Tendon Reflex 2+ Normal Bilateral Achilles Deep Tendon Reflex 2+ Normal PT-OP-J Posture/Palpation/Skin Start: 12/26/18 17:42 Freq: Status: Active Protocol: Document 12/26/18 16:00 (Rec: 12/27/18 13:04 [id number]) Posture Evaluation Position Standing Evaluation View Anterior Head/C-Spine Posture Forward Head T-Spine Posture Fixed Scoliosis on (R) L-Spine Posture Fixed Scoliosis on (L) Shoulder Posture (L) Rounded (R) Rounded Scapula Posture (R) Protracted Weight Distribution Weight Shifted Right Knee Posture (L) Excess Flexion Ankle/Foot Posture (L) Pronated Foot Arch (L) Low Arch PT-OP-K Range of Motion Start: 12/26/18 17:42 Freq: Status: Active Protocol: Document 12/26/18 16:00 (Rec: 12/27/18 13:04 [id number]) Lumbar Spine Range of Motion Lumbar Spine Percentage Testing Position Standing Flexion 60 Extension 40 Rotation Left 40 Rotation Right 40 Lateral Flexion Left 40 Lateral Flexion Right 40 ROM Limitations Soft Tissue Tightness Bony Restriction Muscle Weakness Pain Comments toe touch to mid michele only Lateral flexion with hands touch lateral mid thigh Knee Goniometric Range of Motion Knee Measured in Degrees Right Knee ROM WFL Yes Patient Position Supine Flexion Active (degrees) 135 Extension Active (degrees) 0 Left Knee ROM WFL Yes Patient Position Supine Flexion Active (degrees) 125 Extension Active (degrees) 5 PT-OP-L Special Tests Start: 12/26/18 17:42 Freq: Status: Active Protocol: Document 01/15/19 15:20 RCC (Rec: 01/16/19 10:26 RCC [email or web address]) Special Tests Knee Special Tests Cristobal's Test Results negative L Varus- 25 Degrees Test Results negative L Varus- 0 Degrees Test Results negative L Valgus- 25 Degrees Test Results negative L Valgus- 0 Degrees Test Results negative L Andrew Test Test Results negative L Anterior Draw Test Results negative L PT-OP-M Strength Start: 12/26/18 17:42 Freq: Status: Active Protocol: Document 12/26/18 16:00 HH (Rec: 12/27/18 13:04 HH [id number]) Hip Strength Hip Manual Muscle Testing Right Flexion (L2) 4+ Good+ Extension (S1) 4+ Good+ Abduction 4+ Good+ Adduction 4+ Good+ Left Flexion (L2) 4 Good Extension (S1) 4 Good Abduction 4- Good- Adduction 4 Good Knee Strength Knee Manual Muscle Testing Right Flexion (S2) 4+ Good+ Extension (L3) 4+ Good+ Left Flexion (S2) 4- Good- Extension (L3) 3+ Fair+ PT-OP-Q Treatments Start: 12/26/18 17:42 Freq: Status: Active Protocol: Document 02/05/19 09:00 DLM (Rec: 02/05/19 10:10 DLM [id number]) Therapeutic Exercises Supine Exercises TA activation Supine Exercise Name TVA activation, hooklying Side bilateral Reps/Minutes x10 Comments doing for HEP, cuing to only use hands to monitor muscle activation HS stretching Supine Exercise Name HS stretch Side bilateral Comments changed to sitting edge of bed , one LE at a time TA activation with marching Side bilateral Resistance hooklying Reps/Minutes 10x each 7 Supine Exercise Name TVA with SLR Side bilateral Reps/Minutes 10 reps each 5 Supine Exercise Name Hooklying hip ADduction Side bilateral Equipment Used pillow between knees Reps/Minutes x 10 reps 4 Supine Exercise Name Hooklying hip abduction Reps/Minutes stopped Comments pt reports increased radicular pain with this 3 Supine Exercise Name Quad set Side bilateral Reps/Minutes 5 sec hold x 10 reps each 2 Supine Exercise Name Core stabalization with alternating knee drop outs Side bilateral Reps/Minutes x 5 reps, alternating LE's Comments added to HEP 1 Supine Exercise Name Single Knee to chest Side left Reps/Minutes 3 reps Sidelying Exercises 1 Sidelying Exercise Name Clamshells Side bilateral Reps/Minutes x 10 reps each Manual Therapy Treatment Soft Tissue Mobilization R QL, piriformis and gluteals Body Location right Mobilization Type Myofascial Release Rolling Sustained Pressure Intensity/Depth Moderate Body Position Prone Taping 1 Type of Tape Kinesio Tape Comments pt got itchy from tape so will not continue taping Self-Care/Home Management Treatment Education Patient Education Home Exercise Program Pain Management PT-OP-R Modalities Start: 12/26/18 17:42 Freq: Status: Active Protocol: Document 02/05/19 09:00 DLM (Rec: 02/05/19 10:10 DLM [id number]) Hot Pack/Cold Pack Treatment Cold Pack Comments pt reports she wants to ice at home PT-OP-T Assessment and Plan Start: 12/26/18 17:42 Freq: Status: Active Protocol: Document 02/05/19 09:00 DLM (Rec: 02/05/19 10:10 DLM [id number]) Physical Therapy Assessment Goals Strength Commercial Green Building Architect Goal (LTG) pt will increase her lumbar and L knee strength by 1 MMT grade therefore pt will be improve her single leg strength and balance for functional activties such as stair climbing LTG Duration 12 weeks pain Impairment severe pain during mobility Short Term Goal (STG) Pt will be able to decrease her overall pain level for low back and L knee by 2/10 points during mobility to improve her quality of life STG Duration 6 weeks Commercial Green Building Architect Goal (LTG) .Pt will be able to decrease her overall pain level for low back and L knee by 4/10 points during mobility to improve her quality of life LTG Duration 12 weeks functional activity Impairment stair climbing Retirement Goal (LTG) Pt will be able to use step over pattern with 1 railing during stair climbing. LTG Duration 12 weeks activity tolerance Impairment impaired activity tolerance Commercial Green Building Architect Goal (LTG) Pt will be able to walk > 1mile a day and melissa 45 mins of recumbent bike ride without L knee pain. LTG Duration 12 weeks Progress Towards Goals Progress Towards Goals Progressing Toward Goals Progress Comments met her stair goal, progressing with others Assessment Summary Assessment Bella reports feeling better over-all. Less pelvic rotation today compared to last visit. She tolerated her exercises well with some modifications to manage her pain. She needs cuing to attend to core stabalization during exercises . Physical Therapy Plan Frequency and Duration Frequency of Treatment 2x/Week Duration of Treatment 12 weeks Plan of Care Start Date 12/26/18 Plan of Care End Date 03/27/19 Therapeutic Interventions Therapeutic Interventions Aquatic Therapy Balance Training Gait Training Home Exercise Program Joint Mobilizations Manual Therapy Neuromuscular Re-education Patient/Caregiver Education Self-Care/Home Management Soft Tissue Mobilization Taping Therapeutic Activities Therapeutic Exercises Modalities Cold Pack/Ice Massage Electric Stimulation Hot Packs Infrared Therapy Traction- Mechanical Ultrasound Next Visit Focus/Plan Next Note Type Treatment Note Next Visit Plan continue core stabalization exercises, encourage stability more than mobility in her back
--- NOTE | 2019-02-05 09:00 | PT.OTN ---
Current Diagnoses Spondylosis without myelopathy or radiculopathy, lumbosacral region (02/05/19) Other intervertebral disc degeneration, lumbar region (02/05/19) Physical Therapy Treatment Note PT-OP-A Visit Information Start: 12/26/18 17:42 Freq: Status: Active Protocol: Document 02/05/19 09:00 DLM (Rec: 02/05/19 10:10 DLM [id number]) Out-Patient Physical Therapy Visit Information Visit Information Visit Type Treatment Note Visit Start Time 09:00 Visit Stop Time 09:50 Total Visit Minutes 50 Visit Number 6 Number of WINDOW GLASS CUTTER OFF Visits 0 Evaluation Information Evaluation Date 12/26/18 Precautions Precautions Latex/adhesive sensativity PT-OP-B Current Condition Start: 12/26/18 17:42 Freq: Status: Active Protocol: Document 12/26/18 16:00 HH (Rec: 12/26/18 18:13 HH [email or web address]) Current Condition History of Current Condition Onset Date 6 years ago Current Complaints Chronic back pain and L knee pain, peripheral neuropathy, impaired gait History of Current Condition Pt presents to clinic with a referral from Dr. Rosario for lumbosacral spondylosis, Right SI, L knee and gait instability. Pt states his back pain started 6 years ago most likely because of her scoliosis. She has been getting cortisone injections every 6-9 months a year since then, and that seems to relieve her symptoms a little bit but keeps coming back. She reports nothing really helps (ice sometimes) her back and sitting & twisting make it worse; Pt's L knee pain started from last year for unknown reason, describes as cosntant ache at the knee joint. she also had injection to it but it didnt help. Pt has difficult time for prolonged walking, stair climing (downstair/downhill) and balancing due to pain. She often feels pins and needles around the knee area as well; Her B feet pain/ peripheral neuropathy started 2 years ago with unknown etiology. Pt is not diabetic but she has constant sharp pain, pins and needles and burning sensation on top of her B feet, and tends to feel numb at the bottom. She describes B big toes are the worst, and both feet are very sensitive to touch and pressure. Pt is still very active and independent. She is able to take 8000 steps /day and ride recumbent bike for 30 mins but cannot melissa more than these numbers due to severe L knee pain. Pt rated her L knee issue to be the worst, than B feet than her back at this point. Prior Treatments and Tests Multiplet cortisone injections at lumbar, hip and L knee preivous tx with PT with primarily TENS and ultrasound tx for her low back. Treatment Goals Patient/Caregiver Goals 1. Able to bike 45 mins on recumbent bike without pain 2. able to walk 3 times a day for a total of a mile 3. able to perform step over step during stair climbing. Prior Functional Status Baseline Function- ADL's Independent Baseline Function- Mobility Independent Current Functional Impairments (Reported) Functional Limitations- Mobility/Gait Pt is still currently very active and independent. She is able to take 8000 steps /day and ride recumbent bike for 30 mins but cannot melissa more than these numbers due to severe L knee pain. step to pattern during stair climbing Personal Factors Other Personal Factors That May Effect OA at back Therapy/Recovery TMJ B foot neuropathy scoliosis PT-OP-C Subjective Start: 12/26/18 17:42 Freq: Status: Active Protocol: Document 02/05/19 09:00 DLM (Rec: 02/05/19 10:10 DLM [id number]) OP-PT Subjective Patient Comments Patient Comments The tape started to get itchy by the end of the day so she took it off. She feels she is doing better over-all. Her bursa felt better after last visit on left. She can not do stairs step-over step most of the time. She cane ride her recumbent bike for 20-30 min at at time on low resistance ( high resistance increases her knee pain). She is taking walks for 20-30 min at at a time. They offered her another injection but she is doing so well she thinks she will wait . Patient Reported Progress Improving OP-PT Pain Assessment Location Left Knee Intensity 6 Scale Used Numeric (1 - 10) Right Back Intensity 6 Scale Used Numeric (1 - 10) Description Aching PT-OP-F Manual Assessment Start: 12/26/18 17:42 Freq: Status: Active Protocol: Document 01/15/19 15:20 RCC (Rec: 01/16/19 10:25 RCC [email or web address]) Manual Assessments Other Manual Assessments Other Manual Assessments R posterior ilial rotation PT-OP-G Mobility & Gait Start: 12/26/18 17:42 Freq: Status: Active Protocol: Document 12/26/18 16:00 (Rec: 12/27/18 13:04 [id number]) OP Gait Assessment Gait Gait Assistance Required: Independent Assistive Devices Assistive Device None Orthotic/Prosthetic Devices or Brace: No Gait Deviations General Gait Pattern Antalgic Decreased Stride Length Decreased Feet Clearance Factors Limiting Gait Function Factors Limiting Gait Function Decreased Activity Tolerance Decreased Strength Limited Range of Motion Pain Comments Gait Comments L antalgic gait with decreased heel strike and time spent on stance phase on LLE PT-OP-H Neuro Start: 12/26/18 17:42 Freq: Status: Active Protocol: Document 12/26/18 16:00 (Rec: 12/27/18 13:05 [id number]) Sensation Evaluation Gross Sensation Gross Sensation Left LE Impaired Right LE Impaired Sensation Description Hyperesthesia Numbness [place] Burning Pain Dermatome Impairments L4 L5 S1 Deep Tendon Reflex & Clonus Assessment Deep Tendon Reflex Bilateral Patellar Deep Tendon Reflex 2+ Normal Bilateral Achilles Deep Tendon Reflex 2+ Normal PT-OP-J Posture/Palpation/Skin Start: 12/26/18 17:42 Freq: Status: Active Protocol: Document 12/26/18 16:00 (Rec: 12/27/18 13:04 [id number]) Posture Evaluation Position Standing Evaluation View Anterior Head/C-Spine Posture Forward Head T-Spine Posture Fixed Scoliosis on (R) L-Spine Posture Fixed Scoliosis on (L) Shoulder Posture (L) Rounded (R) Rounded Scapula Posture (R) Protracted Weight Distribution Weight Shifted Right Knee Posture (L) Excess Flexion Ankle/Foot Posture (L) Pronated Foot Arch (L) Low Arch PT-OP-K Range of Motion Start: 12/26/18 17:42 Freq: Status: Active Protocol: Document 12/26/18 16:00 (Rec: 12/27/18 13:04 [id number]) Lumbar Spine Range of Motion Lumbar Spine Percentage Testing Position Standing Flexion 60 Extension 40 Rotation Left 40 Rotation Right 40 Lateral Flexion Left 40 Lateral Flexion Right 40 ROM Limitations Soft Tissue Tightness Bony Restriction Muscle Weakness Pain Comments toe touch to mid michele only Lateral flexion with hands touch lateral mid thigh Knee Goniometric Range of Motion Knee Measured in Degrees Right Knee ROM WFL Yes Patient Position Supine Flexion Active (degrees) 135 Extension Active (degrees) 0 Left Knee ROM WFL Yes Patient Position Supine Flexion Active (degrees) 125 Extension Active (degrees) 5 PT-OP-L Special Tests Start: 12/26/18 17:42 Freq: Status: Active Protocol: Document 01/15/19 15:20 RCC (Rec: 01/16/19 10:26 RCC [email or web address]) Special Tests Knee Special Tests Cristobal's Test Results negative L Varus- 25 Degrees Test Results negative L Varus- 0 Degrees Test Results negative L Valgus- 25 Degrees Test Results negative L Valgus- 0 Degrees Test Results negative L Andrew Test Test Results negative L Anterior Draw Test Results negative L PT-OP-M Strength Start: 12/26/18 17:42 Freq: Status: Active Protocol: Document 12/26/18 16:00 HH (Rec: 12/27/18 13:04 HH [id number]) Hip Strength Hip Manual Muscle Testing Right Flexion (L2) 4+ Good+ Extension (S1) 4+ Good+ Abduction 4+ Good+ Adduction 4+ Good+ Left Flexion (L2) 4 Good Extension (S1) 4 Good Abduction 4- Good- Adduction 4 Good Knee Strength Knee Manual Muscle Testing Right Flexion (S2) 4+ Good+ Extension (L3) 4+ Good+ Left Flexion (S2) 4- Good- Extension (L3) 3+ Fair+ PT-OP-Q Treatments Start: 12/26/18 17:42 Freq: Status: Active Protocol: Document 02/05/19 09:00 DLM (Rec: 02/05/19 10:10 DLM [id number]) Therapeutic Exercises Supine Exercises TA activation Supine Exercise Name TVA activation, hooklying Side bilateral Reps/Minutes x10 Comments doing for HEP, cuing to only use hands to monitor muscle activation HS stretching Supine Exercise Name HS stretch Side bilateral Comments changed to sitting edge of bed , one LE at a time TA activation with marching Side bilateral Resistance hooklying Reps/Minutes 10x each 7 Supine Exercise Name TVA with SLR Side bilateral Reps/Minutes 10 reps each 5 Supine Exercise Name Hooklying hip ADduction Side bilateral Equipment Used pillow between knees Reps/Minutes x 10 reps 4 Supine Exercise Name Hooklying hip abduction Reps/Minutes stopped Comments pt reports increased radicular pain with this 3 Supine Exercise Name Quad set Side bilateral Reps/Minutes 5 sec hold x 10 reps each 2 Supine Exercise Name Core stabalization with alternating knee drop outs Side bilateral Reps/Minutes x 5 reps, alternating LE's Comments added to HEP 1 Supine Exercise Name Single Knee to chest Side left Reps/Minutes 3 reps Sidelying Exercises 1 Sidelying Exercise Name Clamshells Side bilateral Reps/Minutes x 10 reps each Manual Therapy Treatment Soft Tissue Mobilization R QL, piriformis and gluteals Body Location right Mobilization Type Myofascial Release Rolling Sustained Pressure Intensity/Depth Moderate Body Position Prone Taping 1 Type of Tape Kinesio Tape Comments pt got itchy from tape so will not continue taping Self-Care/Home Management Treatment Education Patient Education Home Exercise Program Pain Management PT-OP-R Modalities Start: 12/26/18 17:42 Freq: Status: Active Protocol: Document 02/05/19 09:00 DLM (Rec: 02/05/19 10:10 DLM [id number]) Hot Pack/Cold Pack Treatment Cold Pack Comments pt reports she wants to ice at home PT-OP-T Assessment and Plan Start: 12/26/18 17:42 Freq: Status: Active Protocol: Document 02/05/19 09:00 DLM (Rec: 02/05/19 10:10 DLM [id number]) Physical Therapy Assessment Goals Strength Elevator Service Mechanic Goal (LTG) pt will increase her lumbar and L knee strength by 1 MMT grade therefore pt will be improve her single leg strength and balance for functional activties such as stair climbing LTG Duration 12 weeks pain Impairment severe pain during mobility Short Term Goal (STG) Pt will be able to decrease her overall pain level for low back and L knee by 2/10 points during mobility to improve her quality of life STG Duration 6 weeks Elevator Service Mechanic Goal (LTG) .Pt will be able to decrease her overall pain level for low back and L knee by 4/10 points during mobility to improve her quality of life LTG Duration 12 weeks functional activity Impairment stair climbing [facility] Goal (LTG) Pt will be able to use step over pattern with 1 railing during stair climbing. LTG Duration 12 weeks activity tolerance Impairment impaired activity tolerance Elevator Service Mechanic Goal (LTG) Pt will be able to walk > 1mile a day and melissa 45 mins of recumbent bike ride without L knee pain. LTG Duration 12 weeks Progress Towards Goals Progress Towards Goals Progressing Toward Goals Progress Comments met her stair goal, progressing with others Assessment Summary Assessment Bella reports feeling better over-all. Less pelvic rotation today compared to last visit. She tolerated her exercises well with some modifications to manage her pain. She needs cuing to attend to core stabalization during exercises . Physical Therapy Plan Frequency and Duration Frequency of Treatment 2x/Week Duration of Treatment 12 weeks Plan of Care Start Date 12/26/18 Plan of Care End Date 03/27/19 Therapeutic Interventions Therapeutic Interventions Aquatic Therapy Balance Training Gait Training Home Exercise Program Joint Mobilizations Manual Therapy Neuromuscular Re-education Patient/Caregiver Education Self-Care/Home Management Soft Tissue Mobilization Taping Therapeutic Activities Therapeutic Exercises Modalities Cold Pack/Ice Massage Electric Stimulation Hot Packs Infrared Therapy Traction- Mechanical Ultrasound Next Visit Focus/Plan Next Note Type Progress Note Next Visit Plan continue core stabalization exercises, encourage stability more than mobility in her back
--- NOTE | 2019-02-07 09:10 | PT.OTN ---
Current Diagnoses Spondylosis without myelopathy or radiculopathy, lumbosacral region (02/07/19) Other intervertebral disc degeneration, lumbar region (02/07/19) Physical Therapy Treatment Note PT-OP-A Visit Information Start: 12/26/18 17:42 Freq: Status: Active Protocol: Document 02/07/19 09:10 DLM (Rec: 02/07/19 11:50 DLM [id number]) Out-Patient Physical Therapy Visit Information Visit Information Visit Type Treatment Note Visit Start Time 09:10 Visit Stop Time 09:55 Total Visit Minutes 45 Visit Number 7 Number of TRIALS MANAGER Visits 0 Evaluation Information Evaluation Date 12/26/18 Precautions Precautions Latex/adhesive sensativity PT-OP-B Current Condition Start: 12/26/18 17:42 Freq: Status: Active Protocol: Document 12/26/18 16:00 HH (Rec: 12/26/18 18:13 HH [email or web address]) Current Condition History of Current Condition Onset Date 6 years ago Current Complaints Chronic back pain and L knee pain, peripheral neuropathy, impaired gait History of Current Condition Pt presents to clinic with a referral from Dr. Rosario for lumbosacral spondylosis, Right SI, L knee and gait instability. Pt states his back pain started 6 years ago most likely because of her scoliosis. She has been getting cortisone injections every 6-9 months a year since then, and that seems to relieve her symptoms a little bit but keeps coming back. She reports nothing really helps (ice sometimes) her back and sitting & twisting make it worse; Pt's L knee pain started from last year for unknown reason, describes as cosntant ache at the knee joint. she also had injection to it but it didnt help. Pt has difficult time for prolonged walking, stair climing (downstair/downhill) and balancing due to pain. She often feels pins and needles around the knee area as well; Her B feet pain/ peripheral neuropathy started 2 years ago with unknown etiology. Pt is not diabetic but she has constant sharp pain, pins and needles and burning sensation on top of her B feet, and tends to feel numb at the bottom. She describes B big toes are the worst, and both feet are very sensitive to touch and pressure. Pt is still very active and independent. She is able to take 8000 steps /day and ride recumbent bike for 30 mins but cannot melissa more than these numbers due to severe L knee pain. Pt rated her L knee issue to be the worst, than B feet than her back at this point. Prior Treatments and Tests Multiplet cortisone injections at lumbar, hip and L knee preivous tx with PT with primarily TENS and ultrasound tx for her low back. Treatment Goals Patient/Caregiver Goals 1. Able to bike 45 mins on recumbent bike without pain 2. able to walk 3 times a day for a total of a mile 3. able to perform step over step during stair climbing. Prior Functional Status Baseline Function- ADL's Independent Baseline Function- Mobility Independent Current Functional Impairments (Reported) Functional Limitations- Mobility/Gait Pt is still currently very active and independent. She is able to take 8000 steps /day and ride recumbent bike for 30 mins but cannot melissa more than these numbers due to severe L knee pain. step to pattern during stair climbing Personal Factors Other Personal Factors That May Effect OA at back Therapy/Recovery TMJ B foot neuropathy scoliosis PT-OP-C Subjective Start: 12/26/18 17:42 Freq: Status: Active Protocol: Document 02/07/19 09:10 DLM (Rec: 02/07/19 11:50 DLM [id number]) OP-PT Subjective Patient Comments Patient Comments Her back is better. She has been working on her exercises. Her left knee still hurts a lot. Patient Reported Progress Improving OP-PT Pain Assessment Location Left Knee Pain Location Details patella area Intensity 7 Scale Used Numeric (1 - 10) Pain Alleviating Factors Cold PT-OP-F Manual Assessment Start: 12/26/18 17:42 Freq: Status: Active Protocol: Document 01/15/19 15:20 RCC (Rec: 01/16/19 10:25 RCC [email or web address]) Manual Assessments Other Manual Assessments Other Manual Assessments R posterior ilial rotation PT-OP-G Mobility & Gait Start: 12/26/18 17:42 Freq: Status: Active Protocol: Document 12/26/18 16:00 HH (Rec: 12/27/18 13:04 HH [id number]) OP Gait Assessment Gait Gait Assistance Required: Independent Assistive Devices Assistive Device None Orthotic/Prosthetic Devices or Brace: No Gait Deviations General Gait Pattern Antalgic Decreased Stride Length Decreased Feet Clearance Factors Limiting Gait Function Factors Limiting Gait Function Decreased Activity Tolerance Decreased Strength Limited Range of Motion Pain Comments Gait Comments L antalgic gait with decreased heel strike and time spent on stance phase on LLE PT-OP-H Neuro Start: 12/26/18 17:42 Freq: Status: Active Protocol: Document 12/26/18 16:00 (Rec: 12/27/18 13:05 [id number]) Sensation Evaluation Gross Sensation Gross Sensation Left LE Impaired Right LE Impaired Sensation Description Hyperesthesia Numbness Tingling Pins & [place] Burning Pain Dermatome Impairments L4 L5 S1 Deep Tendon Reflex & Clonus Assessment Deep Tendon Reflex Bilateral Patellar Deep Tendon Reflex 2+ Normal Bilateral Achilles Deep Tendon Reflex 2+ Normal PT-OP-J Posture/Palpation/Skin Start: 12/26/18 17:42 Freq: Status: Active Protocol: Document 12/26/18 16:00 (Rec: 12/27/18 13:04 [id number]) Posture Evaluation Position Standing Evaluation View Anterior Head/C-Spine Posture Forward Head T-Spine Posture Fixed Scoliosis on (R) L-Spine Posture Fixed Scoliosis on (L) Shoulder Posture (L) Rounded (R) Rounded Scapula Posture (R) Protracted Weight Distribution Weight Shifted Right Knee Posture (L) Excess Flexion Ankle/Foot Posture (L) Pronated Foot Arch (L) Low Arch PT-OP-K Range of Motion Start: 12/26/18 17:42 Freq: Status: Active Protocol: Document 12/26/18 16:00 (Rec: 12/27/18 13:04 [id number]) Lumbar Spine Range of Motion Lumbar Spine Percentage Testing Position Standing Flexion 60 Extension 40 Rotation Left 40 Rotation Right 40 Lateral Flexion Left 40 Lateral Flexion Right 40 ROM Limitations Soft Tissue Tightness Bony Restriction Muscle Weakness Pain Comments toe touch to mid michele only Lateral flexion with hands touch lateral mid thigh Knee Goniometric Range of Motion Knee Measured in Degrees Right Knee ROM WFL Yes Patient Position Supine Flexion Active (degrees) 135 Extension Active (degrees) 0 Left Knee ROM WFL Yes Patient Position Supine Flexion Active (degrees) 125 Extension Active (degrees) 5 PT-OP-L Special Tests Start: 12/26/18 17:42 Freq: Status: Active Protocol: Document 01/15/19 15:20 RCC (Rec: 01/16/19 10:26 RCC [email or web address]) Special Tests Knee Special Tests Cristobal's Test Results negative L Varus- 25 Degrees Test Results negative L Varus- 0 Degrees Test Results negative L Valgus- 25 Degrees Test Results negative L Valgus- 0 Degrees Test Results negative L Andrew Test Test Results negative L Anterior Draw Test Results negative L PT-OP-M Strength Start: 12/26/18 17:42 Freq: Status: Active Protocol: Document 12/26/18 16:00 HH (Rec: 12/27/18 13:04 [id number]) Hip Strength Hip Manual Muscle Testing Right Flexion (L2) 4+ Good+ Extension (S1) 4+ Good+ Abduction 4+ Good+ Adduction 4+ Good+ Left Flexion (L2) 4 Good Extension (S1) 4 Good Abduction 4- Good- Adduction 4 Good Knee Strength Knee Manual Muscle Testing Right Flexion (S2) 4+ Good+ Extension (L3) 4+ Good+ Left Flexion (S2) 4- Good- Extension (L3) 3+ Fair+ PT-OP-Q Treatments Start: 12/26/18 17:42 Freq: Status: Active Protocol: Document 02/07/19 09:10 DLM (Rec: 02/07/19 11:50 DLM [id number]) Therapeutic Exercises Supine Exercises TA activation Supine Exercise Name TVA activation, hooklying Side bilateral Reps/Minutes x10 Comments doing for HEP, cuing to only use hands to monitor muscle activation HS stretching Supine Exercise Name HS stretch Side bilateral Comments changed to sitting edge of bed , one LE at a time TA activation with marching Side bilateral Resistance hooklying Reps/Minutes 10x each 7 Supine Exercise Name TVA with SLR Side bilateral Reps/Minutes 10 reps each Comments small ER of LE to activate VMO 5 Supine Exercise Name Hooklying hip ADduction Side bilateral Equipment Used pillow between knees Reps/Minutes x 10 reps 2 Supine Exercise Name Core stabalization with alternating knee drop outs Side bilateral Reps/Minutes x 5 reps, alternating LE's Comments added to HEP Sidelying Exercises 1 Sidelying Exercise Name Clamshells Side bilateral Reps/Minutes x 10 reps each Sitting Exercises 1 Sitting Exercise Name HS curls Side left Resistance L3 exercise band Equipment Used use latex free Reps/Minutes x 15 reps Comments back support of chair Manual Therapy Treatment Soft Tissue Mobilization 3 Body Location left knee Mobilization Type Myofascial Release Intensity/Depth Superficial Body Position Supine Joint Mobilizations 1 Joint left patellar mobs Grade II Body Position Supine Comments educated pt for HEP Self-Care/Home Management Treatment Education Patient Education Home Exercise Program Pain Management Other Education L3 latex free band send home with pt PT-OP-R Modalities Start: 12/26/18 17:42 Freq: Status: Active Protocol: Document 02/05/19 09:00 DLM (Rec: 02/05/19 10:10 DLM [id number]) Hot Pack/Cold Pack Treatment Cold Pack Comments pt reports she wants to ice at home PT-OP-T Assessment and Plan Start: 12/26/18 17:42 Freq: Status: Active Protocol: Document 02/07/19 09:10 DLM (Rec: 02/07/19 11:50 DLM [id number]) Physical Therapy Assessment Goals Strength Materials Scientist Goal (LTG) pt will increase her lumbar and L knee strength by 1 MMT grade therefore pt will be improve her single leg strength and balance for functional activties such as stair climbing LTG Duration 12 weeks pain Impairment severe pain during mobility Short Term Goal (STG) Pt will be able to decrease her overall pain level for low back and L knee by 2/10 points during mobility to improve her quality of life STG Duration 6 weeks Residential Goal (LTG) .Pt will be able to decrease her overall pain level for low back and L knee by 4/10 points during mobility to improve her quality of life LTG Duration 12 weeks functional activity Impairment stair climbing Residential Goal (LTG) Pt will be able to use step over pattern with 1 railing during stair climbing. LTG Duration 12 weeks activity tolerance Impairment impaired activity tolerance Residential Goal (LTG) Pt will be able to walk > 1mile a day and melissa 45 mins of recumbent bike ride without L knee pain. LTG Duration 12 weeks Progress Towards Goals Progress Towards Goals Progressing Toward Goals Progress Comments met her stair goal, progressing with others Assessment Summary Assessment Improved pelvic alignment today with less back pain. She reports changing the HS stretch helped her. She continues to have left knee pain primarily around her patella. Decreased patellar mobility noted with mobilization. No joint line pain today. Physical Therapy Plan Frequency and Duration Frequency of Treatment 2x/Week Duration of Treatment 12 weeks Plan of Care Start Date 12/26/18 Plan of Care End Date 03/27/19 Therapeutic Interventions Therapeutic Interventions Aquatic Therapy Balance Training Gait Training Home Exercise Program Joint Mobilizations Manual Therapy Neuromuscular Re-education Patient/Caregiver Education Self-Care/Home Management Soft Tissue Mobilization Taping Therapeutic Activities Therapeutic Exercises Modalities Cold Pack/Ice Massage Electric Stimulation Hot Packs Infrared Therapy Traction- Mechanical Ultrasound Next Visit Focus/Plan Next Note Type Progress Note Next Visit Plan encourage stability more than mobility in her back, advance knee ex
--- NOTE | 2019-02-10 09:00 | PT.OPPN ---
Current Diagnoses Spondylosis without myelopathy or radiculopathy, lumbosacral region (02/10/19) Other intervertebral disc degeneration, lumbar region (02/10/19) Physical Therapy Progress Note PT-OP-A Visit Information Start: 12/26/18 17:42 Freq: Status: Active Protocol: Document 02/10/19 09:00 DLM (Rec: 02/10/19 16:28 DLM [id number]) Out-Patient Physical Therapy Visit Information Visit Information Visit Type Progress Note Visit Note and treatment today Visit Start Time 09:00 Visit Stop Time 09:45 Total Visit Minutes 45 Visit Number 8 Number of BIOMETRICS INSTRUCTOR Visits 0 Evaluation Information Evaluation Date 12/26/18 Precautions Precautions Latex/adhesive sensativity PT-OP-B Current Condition Start: 12/26/18 17:42 Freq: Status: Active Protocol: Document 12/26/18 16:00 HH (Rec: 12/26/18 18:13 HH [email or web address]) Current Condition History of Current Condition Onset Date 6 years ago Current Complaints Chronic back pain and L knee pain, peripheral neuropathy, impaired gait History of Current Condition Pt presents to clinic with a referral from Dr. Rosario for lumbosacral spondylosis, Right SI, L knee and gait instability. Pt states his back pain started 6 years ago most likely because of her scoliosis. She has been getting cortisone injections every 6-9 months a year since then, and that seems to relieve her symptoms a little bit but keeps coming back. She reports nothing really helps (ice sometimes) her back and sitting & twisting make it worse; Pt's L knee pain started from last year for unknown reason, describes as cosntant ache at the knee joint. she also had injection to it but it didnt help. Pt has difficult time for prolonged walking, stair climing (downstair/downhill) and balancing due to pain. She often feels pins and needles around the knee area as well; Her B feet pain/ peripheral neuropathy started 2 years ago with unknown etiology. Pt is not diabetic but she has constant sharp pain, pins and needles and burning sensation on top of her B feet, and tends to feel numb at the bottom. She describes B big toes are the worst, and both feet are very sensitive to touch and pressure. Pt is still very active and independent. She is able to take 8000 steps /day and ride recumbent bike for 30 mins but cannot melissa more than these numbers due to severe L knee pain. Pt rated her L knee issue to be the worst, than B feet than her back at this point. Prior Treatments and Tests Multiplet cortisone injections at lumbar, hip and L knee preivous tx with PT with primarily TENS and ultrasound tx for her low back. Treatment Goals Patient/Caregiver Goals 1. Able to bike 45 mins on recumbent bike without pain 2. able to walk 3 times a day for a total of a mile 3. able to perform step over step during stair climbing. Prior Functional Status Baseline Function- ADL's Independent Baseline Function- Mobility Independent Current Functional Impairments (Reported) Functional Limitations- Mobility/Gait Pt is still currently very active and independent. She is able to take 8000 steps /day and ride recumbent bike for 30 mins but cannot melissa more than these numbers due to severe L knee pain. step to pattern during stair climbing Personal Factors Other Personal Factors That May Effect OA at back Therapy/Recovery TMJ B foot neuropathy scoliosis PT-OP-C Subjective Start: 12/26/18 17:42 Freq: Status: Active Protocol: Document 02/10/19 09:00 DLM (Rec: 02/10/19 16:28 DLM [id number]) OP-PT Subjective Patient Comments Patient Comments She had unexpected company so she was not able to exercise like she normally does at home . Patient Reported Progress Improving OP-PT Pain Assessment Location Left Knee Pain Location Details patella area Intensity 6 Scale Used Numeric (1 - 10) Pain Alleviating Factors Cold Right Back Intensity 6 Scale Used Numeric (1 - 10) Description Aching PT-OP-F Manual Assessment Start: 12/26/18 17:42 Freq: Status: Active Protocol: Document 01/15/19 15:20 RCC (Rec: 01/16/19 10:25 RCC [email or web address]) Manual Assessments Other Manual Assessments Other Manual Assessments R posterior ilial rotation PT-OP-G Mobility & Gait Start: 12/26/18 17:42 Freq: Status: Active Protocol: Document 12/26/18 16:00 HH (Rec: 12/27/18 13:04 HH [id number]) OP Gait Assessment Gait Gait Assistance Required: Independent Assistive Devices Assistive Device None Orthotic/Prosthetic Devices or Brace: No Gait Deviations General Gait Pattern Antalgic Decreased Stride Length Decreased Feet Clearance Factors Limiting Gait Function Factors Limiting Gait Function Decreased Activity Tolerance Decreased Strength Limited Range of Motion Pain Comments Gait Comments L antalgic gait with decreased heel strike and time spent on stance phase on LLE PT-OP-H Neuro Start: 12/26/18 17:42 Freq: Status: Active Protocol: Document 12/26/18 16:00 (Rec: 12/27/18 13:05 [id number]) Sensation Evaluation Gross Sensation Gross Sensation Left LE Impaired Right LE Impaired Sensation Description Hyperesthesia Numbness Tingling Pins & [place] Burning Pain Dermatome Impairments L4 L5 S1 Deep Tendon Reflex & Clonus Assessment Deep Tendon Reflex Bilateral Patellar Deep Tendon Reflex 2+ Normal Bilateral Achilles Deep Tendon Reflex 2+ Normal PT-OP-J Posture/Palpation/Skin Start: 12/26/18 17:42 Freq: Status: Active Protocol: Document 12/26/18 16:00 (Rec: 12/27/18 13:04 [id number]) Posture Evaluation Position Standing Evaluation View Anterior Head/C-Spine Posture Forward Head T-Spine Posture Fixed Scoliosis on (R) L-Spine Posture Fixed Scoliosis on (L) Shoulder Posture (L) Rounded (R) Rounded Scapula Posture (R) Protracted Weight Distribution Weight Shifted Right Knee Posture (L) Excess Flexion Ankle/Foot Posture (L) Pronated Foot Arch (L) Low Arch PT-OP-K Range of Motion Start: 12/26/18 17:42 Freq: Status: Active Protocol: Document 12/26/18 16:00 (Rec: 12/27/18 13:04 [id number]) Lumbar Spine Range of Motion Lumbar Spine Percentage Testing Position Standing Flexion 60 Extension 40 Rotation Left 40 Rotation Right 40 Lateral Flexion Left 40 Lateral Flexion Right 40 ROM Limitations Soft Tissue Tightness Bony Restriction Muscle Weakness Pain Comments toe touch to mid michele only Lateral flexion with hands touch lateral mid thigh Knee Goniometric Range of Motion Knee Measured in Degrees Right Knee ROM WFL Yes Patient Position Supine Flexion Active (degrees) 135 Extension Active (degrees) 0 Left Knee ROM WFL Yes Patient Position Supine Flexion Active (degrees) 125 Extension Active (degrees) 5 PT-OP-L Special Tests Start: 12/26/18 17:42 Freq: Status: Active Protocol: Document 01/15/19 15:20 RCC (Rec: 01/16/19 10:26 RCC [email or web address]) Special Tests Knee Special Tests Cristobal's Test Results negative L Varus- 25 Degrees Test Results negative L Varus- 0 Degrees Test Results negative L Valgus- 25 Degrees Test Results negative L Valgus- 0 Degrees Test Results negative L Andrew Test Test Results negative L Anterior Draw Test Results negative L PT-OP-M Strength Start: 12/26/18 17:42 Freq: Status: Active Protocol: Document 12/26/18 16:00 (Rec: 12/27/18 13:04 [id number]) Hip Strength Hip Manual Muscle Testing Right Flexion (L2) 4+ Good+ Extension (S1) 4+ Good+ Abduction 4+ Good+ Adduction 4+ Good+ Left Flexion (L2) 4 Good Extension (S1) 4 Good Abduction 4- Good- Adduction 4 Good Knee Strength Knee Manual Muscle Testing Right Flexion (S2) 4+ Good+ Extension (L3) 4+ Good+ Left Flexion (S2) 4- Good- Extension (L3) 3+ Fair+ PT-OP-T Assessment and Plan Start: 12/26/18 17:42 Freq: Status: Active Protocol: Document 02/10/19 09:00 DLM (Rec: 02/10/19 16:28 DLM [id number]) Physical Therapy Assessment Goals Strength Edge Trimming Machine Operator Goal (LTG) Met- pt will increase her lumbar and L knee strength by 1 MMT grade therefore pt will be improve her single leg strength and balance for functional activties such as stair climbing LTG Duration 12 weeks pain Impairment severe pain during mobility Short Term Goal (STG) Not Met but she reports improvement- Pt will be able to decrease her overall pain level for low back and L knee by 2/10 points during mobility to improve her quality of life STG Duration 6 weeks Long-Term Goal (LTG) Not met- Pt will be able to decrease her overall pain level for low back and L knee by 4/10 points during mobility to improve her quality of life LTG Duration 12 weeks functional activity Impairment stair climbing Edge Trimming Machine Operator Goal (LTG) Met- Pt will be able to use step over pattern with 1 railing during stair climbing. LTG Duration 12 weeks activity tolerance Impairment impaired activity tolerance Edge Trimming Machine Operator Goal (LTG) Met walking goal but only doing 30 min on bike- Pt will be able to walk > 1mile a day and melissa 45 mins of recumbent bike ride without L knee pain. LTG Duration 12 weeks Progress Towards Goals Progress Towards Goals Progressing Toward Goals Progress Comments see each goal for comments Assessment Summary Assessment Small decrease in pelvic alignment compared to last visit. Her home stretches appear to be helping to manage her pelvic position. Left knee pain continues to be primarily at her patella. She tolerates her exercises well this visit. She reports less radicular symptoms in right LE . Will continue PT 2x/week as pt is able to schedule. She continues to progress but has not met all her goals yet. Physical Therapy Plan Frequency and Duration Frequency of Treatment 2x/Week Duration of Treatment 12 weeks Plan of Care Start Date 12/26/18 Plan of Care End Date 03/27/19 Therapeutic Interventions Therapeutic Interventions Aquatic Therapy Balance Training Gait Training Home Exercise Program Joint Mobilizations Manual Therapy Neuromuscular Re-education Patient/Caregiver Education Self-Care/Home Management Soft Tissue Mobilization Taping Therapeutic Activities Therapeutic Exercises Modalities Cold Pack/Ice Massage Electric Stimulation Hot Packs Infrared Therapy Traction- Mechanical Ultrasound Next Visit Focus/Plan Next Note Type Treatment Note Next Visit Plan encourage stability more than mobility in her back, advance knee ex
--- NOTE | 2019-02-13 11:20 | PT.OTN ---
Current Diagnoses Spondylosis without myelopathy or radiculopathy, lumbosacral region (02/13/19) Other intervertebral disc degeneration, lumbar region (02/13/19) Physical Therapy Treatment Note PT-OP-A Visit Information Start: 12/26/18 17:42 Freq: Status: Active Protocol: Document 02/13/19 11:20 DLM (Rec: 02/13/19 18:18 DLM [id number]) Out-Patient Physical Therapy Visit Information Visit Information Visit Type Treatment Note Visit Start Time 11:20 Visit Stop Time 11:55 Total Visit Minutes 35 Visit Number 9 Number of TOWN PLANNER Visits 0 Evaluation Information Evaluation Date 12/26/18 Precautions Precautions Latex/adhesive sensativity PT-OP-B Current Condition Start: 12/26/18 17:42 Freq: Status: Active Protocol: Document 12/26/18 16:00 HH (Rec: 12/26/18 18:13 HH [email or web address]) Current Condition History of Current Condition Onset Date 6 years ago Current Complaints Chronic back pain and L knee pain, peripheral neuropathy, impaired gait History of Current Condition Pt presents to clinic with a referral from Dr. Rosario for lumbosacral spondylosis, Right SI, L knee and gait instability. Pt states his back pain started 6 years ago most likely because of her scoliosis. She has been getting cortisone injections every 6-9 months a year since then, and that seems to relieve her symptoms a little bit but keeps coming back. She reports nothing really helps (ice sometimes) her back and sitting & twisting make it worse; Pt's L knee pain started from last year for unknown reason, describes as cosntant ache at the knee joint. she also had injection to it but it didnt help. Pt has difficult time for prolonged walking, stair climing (downstair/downhill) and balancing due to pain. She often feels pins and needles around the knee area as well; Her B feet pain/ peripheral neuropathy started 2 years ago with unknown etiology. Pt is not diabetic but she has constant sharp pain, pins and needles and burning sensation on top of her B feet, and tends to feel numb at the bottom. She describes B big toes are the worst, and both feet are very sensitive to touch and pressure. Pt is still very active and independent. She is able to take 8000 steps /day and ride recumbent bike for 30 mins but cannot melissa more than these numbers due to severe L knee pain. Pt rated her L knee issue to be the worst, than B feet than her back at this point. Prior Treatments and Tests Multiplet cortisone injections at lumbar, hip and L knee preivous tx with PT with primarily TENS and ultrasound tx for her low back. Treatment Goals Patient/Caregiver Goals 1. Able to bike 45 mins on recumbent bike without pain 2. able to walk 3 times a day for a total of a mile 3. able to perform step over step during stair climbing. Prior Functional Status Baseline Function- ADL's Independent Baseline Function- Mobility Independent Current Functional Impairments (Reported) Functional Limitations- Mobility/Gait Pt is still currently very active and independent. She is able to take 8000 steps /day and ride recumbent bike for 30 mins but cannot melissa more than these numbers due to severe L knee pain. step to pattern during stair climbing Personal Factors Other Personal Factors That May Effect OA at back Therapy/Recovery TMJ B foot neuropathy scoliosis PT-OP-C Subjective Start: 12/26/18 17:42 Freq: Status: Active Protocol: Document 02/13/19 11:20 DLM (Rec: 02/13/19 18:18 DLM [id number]) OP-PT Subjective Patient Comments Patient Comments Her left knee is sore today. She has pain going down left LE laterally and into her knee cap. PT-OP-F Manual Assessment Start: 12/26/18 17:42 Freq: Status: Active Protocol: Document 01/15/19 15:20 RCC (Rec: 01/16/19 10:25 RCC [email or web address]) Manual Assessments Other Manual Assessments Other Manual Assessments R posterior ilial rotation PT-OP-G Mobility & Gait Start: 12/26/18 17:42 Freq: Status: Active Protocol: Document 12/26/18 16:00 HH (Rec: 12/27/18 13:04 HH [email or web address]) OP Gait Assessment Gait Gait Assistance Required: Independent Assistive Devices Assistive Device None Orthotic/Prosthetic Devices or Brace: No Gait Deviations General Gait Pattern Antalgic Decreased Stride Length Decreased Feet Clearance Factors Limiting Gait Function Factors Limiting Gait Function Decreased Activity Tolerance Decreased Strength Limited Range of Motion Pain Comments Gait Comments L antalgic gait with decreased heel strike and time spent on stance phase on LLE PT-OP-H Neuro Start: 12/26/18 17:42 Freq: Status: Active Protocol: Document 12/26/18 16:00 HH (Rec: 12/27/18 13:05 [id number]) Sensation Evaluation Gross Sensation Gross Sensation Left LE Impaired Right LE Impaired Sensation Description Hyperesthesia Numbness [place]ing[place]ins & [place] Burning Pain Dermatome Impairments L4 L5 S1 Deep Tendon Reflex & Clonus Assessment Deep Tendon Reflex Bilateral Patellar Deep Tendon Reflex 2+ Normal Bilateral Achilles Deep Tendon Reflex 2+ Normal PT-OP-J Posture/Palpation/Skin Start: 12/26/18 17:42 Freq: Status: Active Protocol: Document 12/26/18 16:00 HH (Rec: 12/27/18 13:04 [id number]) Posture Evaluation Position Standing Evaluation View Anterior Head/C-Spine Posture Forward Head T-Spine Posture Fixed Scoliosis on (R) L-Spine Posture Fixed Scoliosis on (L) Shoulder Posture (L) Rounded (R) Rounded Scapula Posture (R) Protracted Weight Distribution Weight Shifted Right Knee Posture (L) Excess Flexion Ankle/Foot Posture (L) Pronated Foot Arch (L) Low Arch PT-OP-K Range of Motion Start: 12/26/18 17:42 Freq: Status: Active Protocol: Document 12/26/18 16:00 HH (Rec: 12/27/18 13:04 [id number]) Lumbar Spine Range of Motion Lumbar Spine Percentage Testing Position Standing Flexion 60 Extension 40 Rotation Left 40 Rotation Right 40 Lateral Flexion Left 40 Lateral Flexion Right 40 ROM Limitations Soft Tissue Tightness Bony Restriction Muscle Weakness Pain Comments toe touch to mid michele only Lateral flexion with hands touch lateral mid thigh Knee Goniometric Range of Motion Knee Measured in Degrees Right Knee ROM WFL Yes Patient Position Supine Flexion Active (degrees) 135 Extension Active (degrees) 0 Left Knee ROM WFL Yes Patient Position Supine Flexion Active (degrees) 125 Extension Active (degrees) 5 PT-OP-L Special Tests Start: 12/26/18 17:42 Freq: Status: Active Protocol: Document 01/15/19 15:20 RCC (Rec: 01/16/19 10:26 RCC [email or web address]) Special Tests Knee Special Tests Cristobal's Test Results negative L Varus- 25 Degrees Test Results negative L Varus- 0 Degrees Test Results negative L Valgus- 25 Degrees Test Results negative L Valgus- 0 Degrees Test Results negative L Andrew Test Test Results negative L Anterior Draw Test Results negative L PT-OP-M Strength Start: 12/26/18 17:42 Freq: Status: Active Protocol: Document 12/26/18 16:00 HH (Rec: 12/27/18 13:04 HH [id number]) Hip Strength Hip Manual Muscle Testing Right Flexion (L2) 4+ Good+ Extension (S1) 4+ Good+ Abduction 4+ Good+ Adduction 4+ Good+ Left Flexion (L2) 4 Good Extension (S1) 4 Good Abduction 4- Good- Adduction 4 Good Knee Strength Knee Manual Muscle Testing Right Flexion (S2) 4+ Good+ Extension (L3) 4+ Good+ Left Flexion (S2) 4- Good- Extension (L3) 3+ Fair+ PT-OP-Q Treatments Start: 12/26/18 17:42 Freq: Status: Active Protocol: Document 02/13/19 11:20 DLM (Rec: 02/13/19 18:18 DLM [id number]) Manual Therapy Treatment Soft Tissue Mobilization 3 Body Location left knee Mobilization Type Cross-Friction Myofascial Release Intensity/Depth Superficial Body Position Supine Comments and TFL Joint Mobilizations 1 Joint left patellar mobs Grade II Body Position Supine Comments educated pt for HEP Manual Techniques MET Type R hip flex, L hip ext followed by B hip add Body Position Hooklying Comments to correct post. ilial rotation R Self-Care/Home Management Treatment Education Patient Education Home Exercise Program Pain Management Other Education reviewed HEP PT-OP-R Modalities Start: 12/26/18 17:42 Freq: Status: Active Protocol: Document 02/13/19 11:20 DLM (Rec: 02/13/19 18:18 DLM [id number]) Ultrasound Therapy Treatment Left Lateral Thigh Treatment Duration (minutes) 10 Patient Position Sidelying Coupling Medium Ultrasound Gel Applicator Size (cm2) 10 Mode Setting Continuous Duty Cycle 100% Intensity Setting (w/cm2) 1.3 Comments hip down to knee PT-OP-T Assessment and Plan Start: 12/26/18 17:42 Freq: Status: Active Protocol: Document 02/13/19 11:20 DLM (Rec: 02/13/19 18:18 DLM [email or web address]) Physical Therapy Assessment Goals Strength Director Of Workforce Development Goal (LTG) Met- pt will increase her lumbar and L knee strength by 1 MMT grade therefore pt will be improve her single leg strength and balance for functional activties such as stair climbing LTG Duration 12 weeks pain Impairment severe pain during mobility Short Term Goal (STG) Not Met but she reports improvement- Pt will be able to decrease her overall pain level for low back and L knee by 2/10 points during mobility to improve her quality of life STG Duration 6 weeks Director Of Workforce Development Goal (LTG) Not met- Pt will be able to decrease her overall pain level for low back and L knee by 4/10 points during mobility to improve her quality of life LTG Duration 12 weeks functional activity Impairment stair climbing Jail Goal (LTG) Met- Pt will be able to use step over pattern with 1 railing during stair climbing. LTG Duration 12 weeks activity tolerance Impairment impaired activity tolerance Jail Goal (LTG) Met walking goal but only doing 30 min on bike- Pt will be able to walk > 1mile a day and melissa 45 mins of recumbent bike ride without L knee pain. LTG Duration 12 weeks Progress Towards Goals Progress Towards Goals Progressing Toward Goals Assessment Summary Assessment Pelvic alignment continues to be better. Flare-up of pain in left ITB/TFL today with increased stress on her patella. She reports decreased pain with treatment. Continue to assess what may be causing pain flare. Back pain continues to be better. Physical Therapy Plan Frequency and Duration Frequency of Treatment 2x/Week Duration of Treatment 12 weeks Plan of Care Start Date 12/26/18 Plan of Care End Date 03/27/19 Therapeutic Interventions Therapeutic Interventions Aquatic Therapy Balance Training Gait Training Home Exercise Program Joint Mobilizations Manual Therapy Neuromuscular Re-education Patient/Caregiver Education Self-Care/Home Management Soft Tissue Mobilization Taping Therapeutic Activities Therapeutic Exercises Modalities Cold Pack/Ice Massage Electric Stimulation Hot Packs Infrared Therapy Traction- Mechanical Ultrasound Next Visit Focus/Plan Next Note Type Treatment Note Next Visit Plan encourage stability more than mobility in her back, advance knee ex, consider home TENS on knee
--- NOTE | 2019-02-21 10:30 | PT.OTN ---
Current Diagnoses Spondylosis without myelopathy or radiculopathy, lumbosacral region (02/21/19) Other intervertebral disc degeneration, lumbar region (02/21/19) Physical Therapy Treatment Note PT-OP-A Visit Information Start: 12/26/18 17:42 Freq: Status: Active Protocol: Document 02/21/19 10:30 DLM (Rec: 02/21/19 19:47 DLM [email or web address]) Out-Patient Physical Therapy Visit Information Visit Information Visit Type Treatment Note Visit Start Time 10:30 Visit Stop Time 11:10 Total Visit Minutes 40 Visit Number 10 Number of CONFERENCE SERVICE COORDINATOR Visits 0 Evaluation Information Evaluation Date 12/26/18 Precautions Precautions Latex/adhesive sensativity PT-OP-B Current Condition Start: 12/26/18 17:42 Freq: Status: Active Protocol: Document 12/26/18 16:00 HH (Rec: 12/26/18 18:13 HH [email or web address]) Current Condition History of Current Condition Onset Date 6 years ago Current Complaints Chronic back pain and L knee pain, peripheral neuropathy, impaired gait History of Current Condition Pt presents to clinic with a referral from Dr. Rosario for lumbosacral spondylosis, Right SI, L knee and gait instability. Pt states his back pain started 6 years ago most likely because of her scoliosis. She has been getting cortisone injections every 6-9 months a year since then, and that seems to relieve her symptoms a little bit but keeps coming back. She reports nothing really helps (ice sometimes) her back and sitting & twisting make it worse; Pt's L knee pain started from last year for unknown reason, describes as cosntant ache at the knee joint. she also had injection to it but it didnt help. Pt has difficult time for prolonged walking, stair climing (downstair/downhill) and balancing due to pain. She often feels pins and needles around the knee area as well; Her B feet pain/ peripheral neuropathy started 2 years ago with unknown etiology. Pt is not diabetic but she has constant sharp pain, pins and needles and burning sensation on top of her B feet, and tends to feel numb at the bottom. She describes B big toes are the worst, and both feet are very sensitive to touch and pressure. Pt is still very active and independent. She is able to take 8000 steps /day and ride recumbent bike for 30 mins but cannot melissa more than these numbers due to severe L knee pain. Pt rated her L knee issue to be the worst, than B feet than her back at this point. Prior Treatments and Tests Multiplet cortisone injections at lumbar, hip and L knee preivous tx with PT with primarily TENS and ultrasound tx for her low back. Treatment Goals Patient/Caregiver Goals 1. Able to bike 45 mins on recumbent bike without pain 2. able to walk 3 times a day for a total of a mile 3. able to perform step over step during stair climbing. Prior Functional Status Baseline Function- ADL's Independent Baseline Function- Mobility Independent Current Functional Impairments (Reported) Functional Limitations- Mobility/Gait Pt is still currently very active and independent. She is able to take 8000 steps /day and ride recumbent bike for 30 mins but cannot melissa more than these numbers due to severe L knee pain. step to pattern during stair climbing Personal Factors Other Personal Factors That May Effect OA at back Therapy/Recovery TMJ B foot neuropathy scoliosis PT-OP-C Subjective Start: 12/26/18 17:42 Freq: Status: Active Protocol: Document 02/21/19 10:30 DLM (Rec: 02/21/19 19:47 DLM [email or web address]) OP-PT Subjective Patient Comments Patient Comments She wants to discharge to [facility] after today. She reports she is doing better over-all. She feels the helped last visit. Patient Reported Progress Improving OP-PT Pain Assessment Location Left Knee Pain Location Details patella area Intensity 5 Scale Used Numeric (1 - 10) Description Aching Right Back Intensity 5 Scale Used Numeric (1 - 10) Description Aching Home Pain Medication Use Pain Medications Used Yes: marijuana PT-OP-F Manual Assessment Start: 12/26/18 17:42 Freq: Status: Active Protocol: Document 01/15/19 15:20 RCC (Rec: 01/16/19 10:25 RCC [email or web address]) Manual Assessments Other Manual Assessments Other Manual Assessments R posterior ilial rotation PT-OP-G Mobility & Gait Start: 12/26/18 17:42 Freq: Status: Active Protocol: Document 12/26/18 16:00 HH (Rec: 12/27/18 13:04 HH [id number]) OP Gait Assessment Gait Gait Assistance Required: Independent Assistive Devices Assistive Device None Orthotic/Prosthetic Devices or Brace: No Gait Deviations General Gait Pattern Antalgic Decreased Stride Length Decreased Feet Clearance Factors Limiting Gait Function Factors Limiting Gait Function Decreased Activity Tolerance Decreased Strength Limited Range of Motion Pain Comments Gait Comments L antalgic gait with decreased heel strike and time spent on stance phase on LLE PT-OP-H Neuro Start: 12/26/18 17:42 Freq: Status: Active Protocol: Document 12/26/18 16:00 (Rec: 12/27/18 13:05 [id number]) Sensation Evaluation Gross Sensation Gross Sensation Left LE Impaired Right LE Impaired Sensation Description Hyperesthesia Numbness [place] Burning Pain Dermatome Impairments L4 L5 S1 Deep Tendon Reflex & Clonus Assessment Deep Tendon Reflex Bilateral Patellar Deep Tendon Reflex 2+ Normal Bilateral Achilles Deep Tendon Reflex 2+ Normal PT-OP-J Posture/Palpation/Skin Start: 12/26/18 17:42 Freq: Status: Active Protocol: Document 12/26/18 16:00 (Rec: 12/27/18 13:04 [id number]) Posture Evaluation Position Standing Evaluation View Anterior Head/C-Spine Posture Forward Head T-Spine Posture Fixed Scoliosis on (R) L-Spine Posture Fixed Scoliosis on (L) Shoulder Posture (L) Rounded (R) Rounded Scapula Posture (R) Protracted Weight Distribution Weight Shifted Right Knee Posture (L) Excess Flexion Ankle/Foot Posture (L) Pronated Foot Arch (L) Low Arch PT-OP-K Range of Motion Start: 12/26/18 17:42 Freq: Status: Active Protocol: Document 12/26/18 16:00 (Rec: 12/27/18 13:04 [id number]) Lumbar Spine Range of Motion Lumbar Spine Percentage Testing Position Standing Flexion 60 Extension 40 Rotation Left 40 Rotation Right 40 Lateral Flexion Left 40 Lateral Flexion Right 40 ROM Limitations Soft Tissue Tightness Bony Restriction Muscle Weakness Pain Comments toe touch to mid michele only Lateral flexion with hands touch lateral mid thigh Knee Goniometric Range of Motion Knee Right Knee ROM WFL Yes Patient Position Supine Flexion Active (degrees) 135 Extension Active (degrees) 0 Left Knee ROM WFL Yes Patient Position Supine Flexion Active (degrees) 125 Extension Active (degrees) 5 PT-OP-L Special Tests Start: 12/26/18 17:42 Freq: Status: Active Protocol: Document 01/15/19 15:20 RCC (Rec: 01/16/19 10:26 RCC [email or web address]) Special Tests Knee Special Tests Cristobal's Test Results negative L Varus- 25 Degrees Test Results negative L Varus- 0 Degrees Test Results negative L Valgus- 25 Degrees Test Results negative L Valgus- 0 Degrees Test Results negative L Andrew Test Test Results negative L Anterior Draw Test Results negative L PT-OP-M Strength Start: 12/26/18 17:42 Freq: Status: Active Protocol: Document 12/26/18 16:00 (Rec: 12/27/18 13:04 [id number]) Hip Strength Hip Manual Muscle Testing Right Flexion (L2) 4+ Good+ Extension (S1) 4+ Good+ Abduction 4+ Good+ Adduction 4+ Good+ Left Flexion (L2) 4 Good Extension (S1) 4 Good Abduction 4- Good- Adduction 4 Good Knee Strength Knee Manual Muscle Testing Right Flexion (S2) 4+ Good+ Extension (L3) 4+ Good+ Left Flexion (S2) 4- Good- Extension (L3) 3+ Fair+ PT-OP-Q Treatments Start: 12/26/18 17:42 Freq: Status: Active Protocol: Document 02/21/19 10:30 DLM (Rec: 02/21/19 19:47 DLM [email or web address]) Therapeutic Exercises Supine Exercises TA activation Supine Exercise Name TVA activation, hooklying Side bilateral Reps/Minutes x10 Comments doing for HEP, cuing to only use hands to monitor muscle activation TA activation with marching Side bilateral Resistance hooklying Reps/Minutes 10x each 2 Supine Exercise Name Core stabalization with alternating knee drop outs Side bilateral Reps/Minutes x 5 reps, alternating LE's Comments added to HEP Manual Therapy Treatment Soft Tissue Mobilization 3 Body Location left knee Mobilization Type Cross-Friction Myofascial Release Intensity/Depth Superficial Body Position Supine Comments and TFL Joint Mobilizations 1 Joint left patellar mobs Grade II Body Position Supine Manual Techniques MET Type R hip flex, L hip ext followed by B hip add Body Position Hooklying Comments to correct post. ilial rotation R PT-OP-R Modalities Start: 12/26/18 17:42 Freq: Status: Active Protocol: Document 02/21/19 10:30 DLM (Rec: 02/21/19 19:48 DLM [email or web address]) Ultrasound Therapy Treatment Left Lateral Thigh Treatment Duration (minutes) 10 Patient Position Sidelying Coupling Medium Ultrasound Gel Applicator Size (cm2) 10 Mode Setting Continuous Intensity Setting (w/cm2) 1.3 Comments ITB and TFL PT-OP-T Assessment and Plan Start: 12/26/18 17:42 Freq: Status: Active Protocol: Document 02/21/19 10:30 DLM (Rec: 02/21/19 19:47 DLM [email or web address]) Physical Therapy Assessment Goals Strength School Bus Dispatcher Goal (LTG) Met- pt will increase her lumbar and L knee strength by 1 MMT grade therefore pt will be improve her single leg strength and balance for functional activties such as stair climbing LTG Duration 12 weeks pain Impairment severe pain during mobility Short Term Goal (STG) Not Met but she reports improvement- Pt will be able to decrease her overall pain level for low back and L knee by 2/10 points during mobility to improve her quality of life STG Duration 6 weeks School Bus Dispatcher Goal (LTG) Not met- Pt will be able to decrease her overall pain level for low back and L knee by 4/10 points during mobility to improve her quality of life LTG Duration 12 weeks functional activity Impairment stair climbing School Bus Dispatcher Goal (LTG) Met- Pt will be able to use step over pattern with 1 railing during stair climbing. LTG Duration 12 weeks activity tolerance Impairment impaired activity tolerance Correction Goal (LTG) Met walking goal but only doing 30 min on bike- Pt will be able to walk > 1mile a day and melissa 45 mins of recumbent bike ride without L knee pain. LTG Duration 12 weeks Progress Towards Goals Progress Towards Goals Progressing Toward Goals Progress Comments see each goal for comments Assessment Summary Assessment Left lateral knee soft tissue tightness and pain better this visit than last but not fully resolved. She tolerated treatment well. Resolved pain with knee drop outs after manual treatment for pelvic alignment. Pt feels ready to discharge to [facility]. She feels like she can manage her symptoms at this time with [facility] . Physical Therapy Plan Discharge Physical Therapy Discharge Reasons Patient Request Discharge Comments pt feels ready to go to [facility]
--- NOTE | 2019-02-21 11:15 | PT.OPDS ---
Current Diagnoses Spondylosis without myelopathy or radiculopathy, lumbosacral region (02/21/19) Other intervertebral disc degeneration, lumbar region (02/21/19) Provider Visit Care Team Role Provider Type Colt Starr MD Primary Care Provider Physician Specialty: Family Practice Address: [address] [place], [address] Email: Juan Carlos Rosario DO Attending Provider Physician Specialty: Physiatry Pain Management Address: [address] [place] [address], [phone] Email: Visit Number Visit Number 10 Discharge Summary PT-OP-B Current Condition Start: 12/26/18 17:42 Freq: Status: Active Protocol: Document 12/26/18 16:00 HH (Rec: 12/26/18 18:13 HH [email or web address]) Current Condition History of Current Condition Onset Date 6 years ago Current Complaints Chronic back pain and L knee pain, peripheral neuropathy, impaired gait History of Current Condition Pt presents to clinic with a referral from Dr. Rosario for lumbosacral spondylosis, Right SI, L knee and gait instability. Pt states his back pain started 6 years ago most likely because of her scoliosis. She has been getting cortisone injections every 6-9 months a year since then, and that seems to relieve her symptoms a little bit but keeps coming back. She reports nothing really helps (ice sometimes) her back and sitting & twisting make it worse; Pt's L knee pain started from last year for unknown reason, describes as constant ache at the knee joint. she also had injection to it but it didn't help. Pt has difficult time for prolonged walking, stair climbing (downstairs/downhill) and balancing due to pain. She often feels pins and needles around the knee area as well; Her B feet pain/ peripheral neuropathy started 2 years ago with unknown etiology. Pt is not diabetic but she has constant sharp pain, pins and needles and burning sensation on top of her B feet, and tends to feel numb at the bottom. She describes B big toes are the worst, and both feet are very sensitive to touch and pressure. Pt is still very active and independent. She is able to take 8000 steps /day and ride recumbent bike for 30 mins but cannot melissa more than these numbers due to severe L knee pain. Pt rated her L knee issue to be the worst, than B feet than her back at this point. Prior Treatments and Tests Multiple cortisone injections at lumbar, hip and L knee previous tx with PT with primarily TENS and ultrasound tx for her low back. Treatment Goals Patient/Caregiver Goals 1. Able to bike 45 mins on recumbent bike without pain 2. able to walk 3 times a day for a total of a mile 3. able to perform step over step during stair climbing. Prior Functional Status Baseline Function- ADL's Independent Baseline Function- Mobility Independent Current Functional Impairments (Reported) Functional Limitations- Mobility/Gait Pt is still currently very active and independent. She is able to take 8000 steps /day and ride recumbent bike for 30 mins but cannot melissa more than these numbers due to severe L knee pain. step to pattern during stair climbing Personal Factors Other Personal Factors That May Effect OA at back Therapy/Recovery TMJ B foot neuropathy scoliosis PT-OP-C Subjective Start: 12/26/18 17:42 Freq: Status: Active Protocol: Document 02/21/19 10:30 DLM (Rec: 02/21/19 19:47 DLM [email or web address]) OP-PT Subjective Patient Comments Patient Comments She wants to discharge to [facility] after today. She reports she is doing better over-all. She feels the helped last visit. Patient Reported Progress Improving OP-PT Pain Assessment Location Left Knee Pain Location Details patella area Intensity 5 Scale Used Numeric (1 - 10) Description Aching Right Back Intensity 5 Scale Used Numeric (1 - 10) Description Aching Home Pain Medication Use Pain Medications Used Yes: marijuana PT-OP-F Manual Assessment Start: 12/26/18 17:42 Freq: Status: Active Protocol: Document 01/15/19 15:20 RCC (Rec: 01/16/19 10:25 RCC [email or web address]) Manual Assessments Other Manual Assessments Other Manual Assessments R posterior ilial rotation PT-OP-G Mobility & Gait Start: 12/26/18 17:42 Freq: Status: Active Protocol: Document 12/26/18 16:00 HH (Rec: 12/27/18 13:04 HH [id number]) OP Gait Assessment Gait Gait Assistance Required: Independent Assistive Devices Assistive Device None Orthotic/Prosthetic Devices or Brace: No Gait Deviations General Gait Pattern Antalgic Decreased Stride Length Decreased Feet Clearance Factors Limiting Gait Function Factors Limiting Gait Function Decreased Activity Tolerance Decreased Strength Limited Range of Motion Pain Comments Gait Comments L antalgic gait with decreased heel strike and time spent on stance phase on LLE PT-OP-H Neuro Start: 12/26/18 17:42 Freq: Status: Active Protocol: Document 12/26/18 16:00 (Rec: 12/27/18 13:05 [id number]) Sensation Evaluation Gross Sensation Gross Sensation Left LE Impaired Right LE Impaired Sensation Description Hyperesthesia Numbness [place] & [place] Burning Pain Dermatome Impairments L4 L5 S1 Deep Tendon Reflex & Clonus Assessment Deep Tendon Reflex Bilateral Patellar Deep Tendon Reflex 2+ Normal Bilateral Achilles Deep Tendon Reflex 2+ Normal PT-OP-J Posture/Palpation/Skin Start: 12/26/18 17:42 Freq: Status: Active Protocol: Document 12/26/18 16:00 (Rec: 12/27/18 13:04 [id number]) Posture Evaluation Position Standing Evaluation View Anterior Head/C-Spine Posture Forward Head T-Spine Posture Fixed Scoliosis on (R) L-Spine Posture Fixed Scoliosis on (L) Shoulder Posture (L) Rounded (R) Rounded Scapula Posture (R) Protracted Weight Distribution Weight Shifted Right Knee Posture (L) Excess Flexion Ankle/Foot Posture (L) Pronated Foot Arch (L) Low Arch PT-OP-K Range of Motion Start: 12/26/18 17:42 Freq: Status: Active Protocol: Document 12/26/18 16:00 (Rec: 12/27/18 13:04 [id number]) Lumbar Spine Range of Motion Lumbar Spine Percentage Testing Position Standing Flexion 60 Extension 40 Rotation Left 40 Rotation Right 40 Lateral Flexion Left 40 Lateral Flexion Right 40 ROM Limitations Soft Tissue Tightness Bony Restriction Muscle Weakness Pain Comments toe touch to mid michele only Lateral flexion with hands touch lateral mid thigh Knee Goniometric Range of Motion Knee Right Knee ROM WFL Yes Patient Position Supine Flexion Active (degrees) 135 Extension Active (degrees) 0 Left Knee ROM WFL Yes Patient Position Supine Flexion Active (degrees) 125 Extension Active (degrees) 5 PT-OP-L Special Tests Start: 12/26/18 17:42 Freq: Status: Active Protocol: Document 01/15/19 15:20 RCC (Rec: 01/16/19 10:26 RCC [email or web address]) Special Tests Knee Special Tests Cristobal's Test Results negative L Varus- 25 Degrees Test Results negative L Varus- 0 Degrees Test Results negative L Valgus- 25 Degrees Test Results negative L Valgus- 0 Degrees Test Results negative L Andrew Test Test Results negative L Anterior Draw Test Results negative L PT-OP-M Strength Start: 12/26/18 17:42 Freq: Status: Active Protocol: Document 12/26/18 16:00 (Rec: 12/27/18 13:04 [id number]) Hip Strength Hip Manual Muscle Testing Right Flexion (L2) 4+ Good+ Extension (S1) 4+ Good+ Abduction 4+ Good+ Adduction 4+ Good+ Left Flexion (L2) 4 Good Extension (S1) 4 Good Abduction 4- Good- Adduction 4 Good Knee Strength Knee Manual Muscle Testing Right Flexion (S2) 4+ Good+ Extension (L3) 4+ Good+ Left Flexion (S2) 4- Good- Extension (L3) 3+ Fair+ PT-OP-T Assessment and Plan Start: 12/26/18 17:42 Freq: Status: Active Protocol: Document 02/21/19 10:30 DLM (Rec: 02/21/19 19:47 DLM [email or web address]) Physical Therapy Assessment Goals Strength Hide Sorter Goal (LTG) Met- pt will increase her lumbar and L knee strength by 1 MMT grade therefore pt will be improve her single leg strength and balance for functional activties such as stair climbing LTG Duration 12 weeks pain Impairment severe pain during mobility Short Term Goal (STG) Not Met but she reports improvement- Pt will be able to decrease her overall pain level for low back and L knee by 2/10 points during mobility to improve her quality of life STG Duration 6 weeks Hide Sorter Goal (LTG) Not met- Pt will be able to decrease her overall pain level for low back and L knee by 4/10 points during mobility to improve her quality of life LTG Duration 12 weeks functional activity Impairment stair climbing Hide Sorter Goal (LTG) Met- Pt will be able to use step over pattern with 1 railing during stair climbing. LTG Duration 12 weeks activity tolerance Impairment impaired activity tolerance Hide Sorter Goal (LTG) Met walking goal but only doing 30 min on bike- Pt will be able to walk > 1mile a day and melissa 45 mins of recumbent bike ride without L knee pain. LTG Duration 12 weeks Progress Towards Goals Progress Towards Goals Progressing Toward Goals Progress Comments see each goal for comments Assessment Summary Assessment Left lateral knee soft tissue tightness and pain better this visit than last but not fully resolved. She tolerated treatment well. Resolved pain with knee drop outs after manual treatment for pelvic alignment. Pt feels ready to discharge to [facility]. She feels like she can manage her symptoms at this time with [facility] . Physical Therapy Plan Discharge Physical Therapy Discharge Reasons Patient Request Discharge Comments pt feels ready to go to [facility]
== END 2019-02-26 16:39 | disposition home or self-care (01) ==
LOC: PHYS 10:30
PROVIDERS: PCP Family Medicine; Visit Provider Physical Medicine & Rehabilitation
DX: M51.36 Other intervertebral disc degeneration, lumbar region (principal); M47.817 Spondylosis without myelopathy or radiculopathy, lumbosacral region
CPT/HCPCS: 97012; 97035; 97110; 97140; 97163

== ENCOUNTER → 2019-04-09 10:04 | Outpatient (CLI) | payer MEDICARE, SELFPAY ==
--- NOTE | 2019-04-09 | DI.CT.S_ITS ---
PROCEDURE: CT CHEST WO CON INDICATIONS: Bronchiectasis, uncomplicated TECHNIQUE: Noncontrast 5 mm thick sections acquired from the pulmonary apices to the posterior costophrenic angles. 1 mm lung window, 5 mm thick coronal and sagittal and 7 mm axial MIP reformats were then acquired. For radiation dose reduction, the following was used: automated exposure control, adjustment of mA and/or kV according to patient size. COMPARISON: [facility], CR, XR CHEST 2V, 12/13/2018, 8:58. [facility], CR, CHEST 2 VIEW, 02/22/2016, 13:06. [facility], CT, THORAX WITHOUT CONTRAST, 01/12/2015, 10:36. [facility], CT, CHEST/ABD/PEL WITH CONTRAST, 06/27/2014, 16:21. FINDINGS: Image quality: Excellent. Lungs and pleura: Scattered within the lung parenchyma bilaterally are patchy areas of both alveolar airspace disease and small clustered pulmonary nodules in a pattern suggestive of old granulomatous disease. There has been, however, a mild interval worsening in several areas where airspace disease was not present on prior CT scanning 01/12/15. For example, within the left upper lobe at the mid chest level near the lingular segment areas of peribronchial soft tissue prominence and small nodules within the lung have developed which were not present 01/12/15. No calcified pulmonary nodules are seen. There is no appreciable bronchiectasis. No pleural effusions or pneumothorax. Central and peripheral airways are patent and normal in caliber. Mediastinum: Heart size is normal. No pericardial effusion. No mediastinal adenopathy by size criteria. Thoracic aorta and central pulmonary arteries are normal in size. Esophagus is normal in caliber. No hiatal hernia. Bones and chest wall: No suspicious bony lesions. No vertebral body compression fractures. No axillary or supraclavicular adenopathy by size criteria. Thyroid gland appears normal where well visualized. Abdomen: Visualized upper abdominal solid organs and bowel loops appear normal in the absence of contrast. IMPRESSION: There has been a patchy distribution of both mild alveolar airspace consolidation and also scattered areas of clustered small pulmonary nodules ranging in size from 3 mm to 8 mm. The pattern of airspace disease and the presence of clustered nodules argues towards granulomatous etiology. There has been definite mild interval worsening of the airspace disease pattern from a comparison CT dated 01/12/15, but no mediastinal or hilar adenopathy has developed. Overall large lung lines, please correlate for presence of COPD. Dictated by: Lobo Jacinto M.D. on 04/09/2019 at 12:37 Approved by: Lobo Jacinto M.D. on 04/09/2019 at 12:53
== END ==
PROVIDERS: PCP Family Medicine; Visit Provider Internal Medicine Critical Care Medicine
DX: J47.9 Bronchiectasis, uncomplicated (principal); R91.8 Other nonspecific abnormal finding of lung field; A31.9 Mycobacterial infection, unspecified
CPT/HCPCS: 71250

== ENCOUNTER → 2019-05-06 10:01 | Outpatient (CLI) | payer MEDICARE, SELFPAY | PROVIDERS: PCP Family Medicine; Visit Provider Family Medicine | DX: M85.851 Other specified disorders of bone density and structure, right thigh (principal); M85.852 Other specified disorders of bone density and structure, left thigh; Z78.0 Asymptomatic menopausal state; Z82.62 Family history of osteoporosis; Z87.891 Personal history of nicotine dependence | CPT/HCPCS: 77080 ==

== ENCOUNTER → 2019-12-29 09:39 | Outpatient (CLI) | payer MEDICARE, SELFPAY | PROVIDERS: PCP Family Medicine; Visit Provider Specialist | DX: R30.9 Painful micturition, unspecified (principal); N64.4 Mastodynia | CPT/HCPCS: 87086 ==

== ENCOUNTER → 2020-09-28 14:42 | Outpatient (CLI) | payer MEDICARE, OTHER, SELFPAY ==
[2020-09-28] MEDS: COVID-19 VACC #1, MRNA(MOD) 100 MCG/0.5 ML VIAL IM (14:49)
== END ==
PROVIDERS: PCP Family Medicine; Visit Provider Internal Medicine
DX: Z23 Encounter for immunization (principal)
CPT/HCPCS: 0011A; 91301

== ENCOUNTER → 2021-02-28 09:15 | Outpatient (CLI) | payer MEDICARE, OTHER, SELFPAY ==
--- NOTE | 2021-02-28 09:17 | DI.RAD.S_ITS ---
PROCEDURE: XR LUMBAR SPINE MIN 4V INDICATIONS: BACK PAIN TECHNIQUE: 5 views of the lumbar spine were acquired, including bilateral oblique views. COMPARISON: None. FINDINGS: Bones: No acute fracture identified. Multilevel degenerative endplate sclerosis and spurring. Diffuse facet arthropathy. There is severe levoscoliosis. Severe narrowing of the disc spaces throughout the lumbar spine, with relative sparing at L1-L2 and L5-S1. Soft tissues: Overlying bowel gas pattern is normal. No suspicious soft tissue calcifications. Oblique images: No pars defects. IMPRESSION: Severe multilevel lumbar spondylosis and facet arthropathy. There is diffuse interval progression since 08/23/16. Levoscoliosis of the lumbar spine. Dictated by: Ramón Trujillo M.D. on 02/28/2021 at 10:33 Approved by: Ramón Trujillo M.D. on 02/28/2021 at 10:34
== END ==
PROVIDERS: PCP Student in an Organized Health Care Education/Training Program; Referring Provider Physical Medicine & Rehabilitation; Visit Provider Physical Medicine & Rehabilitation
DX: M47.27 Other spondylosis with radiculopathy, lumbosacral region (principal); M48.061 Spinal stenosis, lumbar region without neurogenic claudication; M51.36 Other intervertebral disc degeneration, lumbar region; M41.86 Other forms of scoliosis, lumbar region
CPT/HCPCS: 72110

== ENCOUNTER → 2021-03-08 10:06 | Outpatient (CLI) | payer MEDICARE, OTHER, SELFPAY | PROVIDERS: PCP Student in an Organized Health Care Education/Training Program; Referring Provider Student in an Organized Health Care Education/Training Program; Visit Provider Student in an Organized Health Care Education/Training Program | DX: M81.0 Age-related osteoporosis without current pathological fracture (principal); Z78.0 Asymptomatic menopausal state; Z82.62 Family history of osteoporosis; Z87.891 Personal history of nicotine dependence | CPT/HCPCS: 77080 ==

== ENCOUNTER → 2021-03-10 09:39 | Outpatient (CLI) | payer MEDICARE, OTHER, SELFPAY ==
--- NOTE | 2021-04-05 08:50 | P.HOLT.S_ITS ---
[employer] Report Referral & Results Date Patient Seen: 03/10/21 Requesting provider: Girish Jade Indication: Arrhythmia Duration of monitoring (days): 7 Diary information: There was 1 patient triggered event and 1 patient diary entry. Both of these events were associated with sinus rhythm Data: Minimum heart rate was 52 beats per minute at 05:41 on 03/16/2021 Maximum sinus heart rate was 124 beats per minute at 08:19 on 03/14/2021 Maximum overall heart rate was 130 beats per minute at 23:06 on 03/11/2021 during a 4 beat run of SVT Less than 1% of identified beats were ventricular or supraventricular ectopic in origin, which would classify them as rare. 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 Only rare ectopic beats were identified and is single very rare very short run of a supraventricular origin as above.
== END ==
PROVIDERS: PCP Student in an Organized Health Care Education/Training Program; Referring Provider Family Medicine; Visit Provider Family Medicine
DX: I49.9 Cardiac arrhythmia, unspecified (principal)
CPT/HCPCS: 93246; 93248

== ENCOUNTER → 2021-05-09 13:07 | Outpatient (CLI) | payer MEDICARE, OTHER, SELFPAY ==
[2021-05-09 15:33] LABS: COVID19 -Nasal RAPID Negative (Negative)
== END ==
PROVIDERS: PCP Student in an Organized Health Care Education/Training Program; Referring Provider Nurse Practitioner Family; Visit Provider Nurse Practitioner Family
DX: Z01.812 Encounter for preprocedural laboratory examination (principal); Z20.822 Contact with and (suspected) exposure to COVID-19
CPT/HCPCS: 87635; C9803

== ENCOUNTER 2021-05-10 08:00 | Outpatient (CLI) | payer MEDICARE, OTHER, SELFPAY ==
--- NOTE | 2021-05-10 08:01 | DI.RAD.S_ITS ---
PROCEDURE: PAIN L INTERLAMINAR/CAUDAL INJ INDICATIONS: SPONDYLOSIS COMPARISON: [facility], XA, PAIN L INTERLAMINAR/CAUDAL INJ, 11/06/2018, 8:58. FINDINGS: Fluoroscopic spot filming was performed to verify placement of a spinal needle at the L3-L4 level, as labeled on the films. Appropriate location of the needle tip was confirmed by injection of iodinated contrast. IMPRESSION: Intraprocedural examination within normal limits. Dictated by: Kenny Marcelo M.D. on 05/10/2021 at 10:40 Approved by: Kenny Marcelo M.D. on 05/10/2021 at 10:41
[2021-05-10 08:38] VITALS: BP 138/63; PULSE 71; RESP 16; TEMP 36.7; O2SAT 97
[2021-05-10 09:16] VITALS: BP 162/70; PULSE 76; RESP 13; O2SAT 100
[2021-05-10 09:20] VITALS: BP 168/71; PULSE 76; RESP 12; O2SAT 100
[2021-05-10] MEDS: IOPAMIDOL 15 ML VIAL 3 ML INJ (09:23)
[2021-05-10] MEDS: BUPIVACAINE 0.25% (PF) VIAL 2 ML INJ (09:23)
[2021-05-10] MEDS: DEXAMETHASONE 10 MG/ML VIAL 20 MG INJ (09:24)
[2021-05-10] MEDS: BETAMETHASONE 30 MG/5 ML MDV 6 MG INJ (09:24)
[2021-05-10 09:25] VITALS: BP 154/55; PULSE 77; RESP 12; O2SAT 100
[2021-05-10 09:30] VITALS: BP 153/69; PULSE 79; RESP 14; O2SAT 100
--- NOTE | 2021-05-10 09:35 | P.PCN_ITS ---
Date/Time/Diagnoses Date of procedure: 05/10/21 Time of procedure: 09:35 Pre-procedure diagnosis: 1. HNP WITH RADICULAR FEATURES, 2. MULTILEVEL CENTRAL STENOSIS, Post-procedure diagnosis: same Procedure Notes Procedure: 1. FLUOROSCOPICALLY GUIDED CONTRAST CONTROLLED INTERLAMINAR EPIDURAL STEROID INJECTION - L3/4 Indications: Bella is referred by Dr. Briscoe for treatment of Bilateral Foraminal Stenosis L>R LE symptoms. Physician: Juan Carlos Rosario Total Fluoroscopy time (seconds): 9 Total sedation minutes: 0 Complications: none Procedure in detail & Post-procedure care: FINDINGS Multilevel Central Spinal Stenosis with Nerve Root Compression DESCRIPTION OF PROCEDURE Fluoroscopically guided, contrast-controlled L3/4 translaminar epidural steroid injection. Following review of allergy and review of potential side effects and complications, including, but not necessarily limited to, infection, allergic reaction, local tissue breakdown, temporary as well as permanent nerve injury, paralysis, stroke and possible , the patient indicated that the patient understood and agreed to proceed. An informed consent document was signed by the patient, witnessed by a nurse, and placed in the patient's chart. Additionally, other treatment options including modalities, medications, and physical therapy were reviewed with the patient. After review of previous anaesthesic history and IV conscious sedation the patient was deemed safe to proceed with today?s procedure with IV conscious sedation as ASA class II designation. Safety time-out was performed to confirm patient ID, procedure to be performed and site of procedure. IV sedation was deemed unnecessary and thus not administered by the RN after DO order, titrated to patient comfort during the course of the procedure while the patient remained responsive to all verbal commands. In the prone position, following sterile prep and drape of the lumbar region, the L3/4 translaminar space was identified fluoroscopically. The skin was anesthetized via a 25-gauge, 1.5-inch needle with 1% lidocaine solution. At this point, a 22-gauge short bevel spinal needle was atraumatically introduced and advanced under fluoroscopic guidance into the region of the L3/4 translaminar space. Depth was confirmed on lateral view. Radiological data, including multiple fluoroscopic views of the lumbar spine, reveal a spinal needle at the L3/4 translaminar space. Lateral views then show placement of the needle in the epidural space. Subsequent views show contrast material flowing superiorly and inferiorly in the epidural space. No vascular or intrathecal uptake is observed. At this point, using loss of resistance technique with saline and air, the epidural space was entered. This was confirmed following negative aspiration with injection of approximately 1.5 cc of Isovue 200, showing excellent epidural flow without vascular or intrathecal uptake. At this point, 1cc of 1% lidocaine solution combined with 3cc or 20mg of dexamethasone and 6mg of betamethasone was injected without incident. The patient tolerated the procedure well without signs or symptoms of complications prior to transfer to the recovery area continued monitoring without incident. The patient was then transferred to the recovery area where they were observed for an appropriate period of time after the injection. The patient reported a VAS score of 6 prior to the procedure and a post- procedure VAS of 0. POST OP INSTRUCTIONS The patient was provided a Pain Log to continue to record their response to the target-specific procedure prior to follow-up visit with their referring physician. Additionally, specific post-injection care instructions and a contact number to our office were provided if concerns arise regarding possible complications associated with the procedure are suspected.
[2021-05-10 09:40] VITALS: BP 136/63; PULSE 82; RESP 16; O2SAT 98
== END 2021-05-10 09:50 | disposition home or self-care (01) ==
LOC: RAD 08:01
PROVIDERS: PCP Student in an Organized Health Care Education/Training Program; Referring Provider Physical Medicine & Rehabilitation; Visit Provider Physical Medicine & Rehabilitation
DX: M51.16 Intervertebral disc disorders with radiculopathy, lumbar region (principal); M48.061 Spinal stenosis, lumbar region without neurogenic claudication
CPT/HCPCS: 62323; J0702; J1100; J2250; J3010

== ENCOUNTER → 2021-06-10 11:03 | Outpatient (CLI) | payer MEDICARE, OTHER, SELFPAY ==
--- NOTE | 2021-06-10 11:07 | DI.CT.S_ITS ---
PROCEDURE: CT CHEST WO CON INDICATIONS: MULTIPLE PULMONARY NODULES TECHNIQUE: Noncontrast 2.0-2.5 mm thick sections acquired from the pulmonary apices to the posterior costophrenic angles. 7 mm thick axial MIP and 5 mm coronal and sagittal reformats were then acquired. A low radiation dose technique was utilized. COMPARISON: [facility], CT, CT CHEST WO CON, 04/09/2019, 10:07. FINDINGS: Image quality: Diagnostic, given the low radiation dose technique. Lungs and pleura: Biapical pleural thickening/scarring. No consolidation, pleural effusion, or pneumothorax. Interval development of a cluster of nodules in the right upper lobe (series 3, image 116), largest component measuring up to 7.4 mm. Redemonstrated bilateral calcified and noncalcified nodules, likely reflecting granulomatous change. Persistent bronchiectasis. Mediastinum: Heart size is normal. No pericardial effusion. No mediastinal adenopathy by size criteria. Thoracic aorta and central pulmonary arteries are normal in size. Esophagus is normal in caliber. No hiatal hernia. Bones and chest wall: No suspicious bony lesions. No vertebral body compression fractures. No axillary or supraclavicular adenopathy by size criteria. 7.4 mm hypoattenuating lesion in the right thyroid. Abdomen: Visualized upper abdomen solid organs and bowel loops appear normal in the absence of contrast. IMPRESSION: 1. Interval development of a cluster of nodules in the right upper lobe as detailed above, likely reflecting evolution of the patient's granulomatous process. 2. 7.4 mm hypoattenuating lesion in the right lobe of the thyroid. Consider correlation with thyroid function tests and ultrasound as clinically warranted. Dictated by: Carlos Alexander M.D. on 06/10/2021 at 17:15 Approved by: Carlos Alexander M.D. on 06/10/2021 at 17:26
== END ==
PROVIDERS: PCP Student in an Organized Health Care Education/Training Program; Referring Provider Internal Medicine Critical Care Medicine; Visit Provider Internal Medicine Critical Care Medicine
DX: R91.8 Other nonspecific abnormal finding of lung field (principal); E07.9 Disorder of thyroid, unspecified
CPT/HCPCS: 71250

== ENCOUNTER → 2021-06-13 12:09 | Outpatient (CLI) | payer MEDICARE, OTHER, SELFPAY ==
--- NOTE | 2021-06-13 12:10 | DI.US.S_ITS ---
PROCEDURE: US PERIPH VENOUS LOW EXTREM LT INDICATIONS: PAIN, EDEMA TECHNIQUE: Real-time imaging, as well as color and pulse Doppler interrogation, were performed of the lower extremity deep veins from the inguinal ligament to the popliteal fossa. COMPARISON: None. FINDINGS: The common femoral, femoral and popliteal veins are normally compressible, and free of intraluminal thrombus. Color and pulse Doppler demonstrate normal phasic intraluminal flow. There is normal augmentation response to distal compression maneuver. A left Ayoub's cyst is incidentally noted measuring 4.2 x 0.8 x 2.4 cm. IMPRESSION: Negative for deep venous thrombosis. Dictated by: Kenny Marcelo M.D. on 06/13/2021 at 11:36 Approved by: Kenny Marcelo M.D. on 06/13/2021 at 11:36
== END ==
PROVIDERS: PCP Student in an Organized Health Care Education/Training Program; Referring Provider Nurse Practitioner; Visit Provider Nurse Practitioner
DX: M79.662 Pain in left lower leg (principal); M79.89 Other specified soft tissue disorders; M71.22 Synovial cyst of popliteal space [Baker], left knee
CPT/HCPCS: 93971

== ENCOUNTER → 2022-08-03 07:15 | Outpatient (CLI) | payer MEDICARE, OTHER, SELFPAY ==
[2022-08-03 08:03] LABS: Add Manual Diff / Slide Review NO; Basophils Absolute Auto 100 /uL (0-100); Basophils Percent Auto 1.2 % (0-2); Eosinophils Absolute Auto 200 /uL (0-450); Eosinophils Percent Auto 2.9 % (2-4); Lymphocytes Absolute Auto 2100 /uL (1100-4500); Lymphocytes Percent Auto 34.8 % (25-40); Mean Corpuscular HGB Conc 32.4 % (30-36); Mean Corpuscular Hemoglobin 29.4 PG (26-34); Mean Corpuscular Volume 90.8 fL (80-100); Monocytes Absolute Auto 700 /uL (0-900); Monocytes Percent Auto 11.7 % (3-14); Neutrophils Absolute Auto 2900 /uL (1500-7000); Neutrophils Percent Auto 49.4 % (50-75); Platelet Count 248 X10^3/uL (150-400); Red Blood Cell Count 4.74 X10^6/uL (4.0-5.2); Red Cell Distribution Width 13.3 % (11.6-14.8); White Blood Cell Count 5.9 X10^3/uL (4.5-11.0)
[2022-08-03 08:11] LABS: Alanine Aminotransferase 19 IU/L (<35); Albumin 4.2 g/dL (3.5-5.0); Albumin Globulin Ratio 1.4 (1.0-2.8); Alkaline Phosphatase 81 U/L (38-126); Aspartate Aminotransferase 24 IU/L (14-36); Bilirubin Total 1.2 mg/dL (0.2-1.3); Blood Urea Nitrogen 20 mg/dL (7-17); Calcium 9.6 mg/dL (8.4-10.2); Carbon Dioxide 31 mmol/L (22-32); Chloride 100 mmol/L (98-107); Cholesterol 212 mg/dL (140-199); Estimated Glomerular Filt Rate > 60 mL/min (>60); Globulin 3.1 g/dL (1.7-4.1); Glucose 90 mg/dL (80-110); HDL Cholesterol 72 mg/dL (40-60); HEMOLYSIS < 15 (0-50); LDL Cholesterol Calculated 119 mg/dL (<100); Potassium 4.2 mmol/L (3.4-5.1); Sodium 140 mmol/L (137-145); Total Protein 7.3 g/dL (6.3-8.2); Triglycerides 106 mg/dL (35-150)
[2022-08-03 08:40] LABS: TSH w/ Reflex to FT4 4.09 uIU/mL (0.47-4.68)
[2022-08-03 09:01] LABS: Vitamin B12 686 pg/mL (239-931)
[2022-08-03 10:38] LABS: Creatinine Urine Random 131.3 mg/dL
[2022-08-03 10:40] LABS: Microalbumi Creatinin Ratio Ur 12.9 ug/mg CR (<30); Microalbumin Urine Random 1.7 mg/dL (0-1.6)
== END ==
PROVIDERS: Family Provider Family Medicine; PCP Family Medicine; Referring Provider Family Medicine; Visit Provider Family Medicine
DX: E16.2 Hypoglycemia, unspecified (principal); G62.9 Polyneuropathy, unspecified; M41.45 Neuromuscular scoliosis, thoracolumbar region; M48.061 Spinal stenosis, lumbar region without neurogenic claudication; M51.36 Other intervertebral disc degeneration, lumbar region; M54.16 Radiculopathy, lumbar region; M81.0 Age-related osteoporosis without current pathological fracture; E78.5 Hyperlipidemia, unspecified
CPT/HCPCS: 36415; 80053; 80061; 82043; 82570; 82607; 84443; 85025

== ENCOUNTER → 2022-08-18 08:42 | Outpatient (CLI) | payer MEDICARE, OTHER, SELFPAY ==
--- NOTE | 2022-08-18 08:44 | DI.MRI.S_ITS ---
PROCEDURE: MR LUMBAR SPINE WO CON INDICATIONS: polyneuropathy, and lumbar spondylosis TECHNIQUE: Noncontrast sagittal T1 spin echo and T2 fast echo, sagittal STIR, and T2 fast spin echo through the lumbar spine. In cases with scoliosis, additional coronal T2 fast spin echo may be performed. COMPARISON: [facility], MR, MR LUMBAR SPINE WO CON, 01/11/2018, 15:30. FINDINGS: Image quality: Excellent. Alignment and Curvature: Convex right thoracolumbar scoliosis without vertebral anomaly Bone Marrow: Marrow is of normal overall signal. No acute vertebral body compression fractures. Spinal Cord: Conus medullaris terminates at the L1 level. Visualized cord demonstrates normal signal and size. Paraspinous Soft Tissues: No paravertebral masses. T12-L1: Normal appearance. L1-L2: Normal appearance. L2-L3: Disc space narrowing with circumferential disc bulge and hypertrophic facet joints results in moderate central stenosis. Moderate left and mild right foraminal stenosis L3-L4: Disc space narrowing with circumferential disc bulge and hypertrophic facet joints results in eviy-qw-[id number] central stenosis. Severe right and moderate left foraminal stenosis L4-L5: Disc space narrowing with circumferential disc bulge, hypertrophic facet joints and ligamentum flavum laxity results in moderate central stenosis. Moderate left and right foraminal stenosis L5-S1: Disc height is preserved. Mild circumferential disc bulge without central stenosis. No foraminal stenosis IMPRESSION: Multilevel degenerative disc disease and arthropathy results in varying degrees of central and foraminal stenosis including moderate central stenosis at L2-3 and L4-5 as well as severe foraminal stenosis L3-4 Approved by: Stephen Feldman M.D. on 08/18/2022 at 17:04
== END ==
PROVIDERS: Family Provider Family Medicine; PCP Family Medicine; Referring Provider Family Medicine; Visit Provider Family Medicine
DX: M51.16 Intervertebral disc disorders with radiculopathy, lumbar region (principal); M47.26 Other spondylosis with radiculopathy, lumbar region; M51.17 Intervertebral disc disorders with radiculopathy, lumbosacral region; M48.061 Spinal stenosis, lumbar region without neurogenic claudication; G57.93 Unspecified mononeuropathy of bilateral lower limbs
CPT/HCPCS: 72148

== ENCOUNTER → 2023-06-25 08:01 | Outpatient (CLI) | payer MEDICARE, OTHER, SELFPAY ==
--- NOTE | 2023-06-25 08:02 | DI.RAD.S_ITS ---
PROCEDURE: XR LUMBAR SPINE MIN 4V INDICATIONS: BACK PAIN TECHNIQUE: 5 views of the lumbar spine were acquired, including bilateral oblique views. COMPARISON: [facility], , XR LUMBAR SPINE MIN 4V, 02/28/2021, 9:15. FINDINGS: Bones: 5 nonrib-bearing vertebrae are present. No vertebral body compression fractures. There is dextroscoliosis of the lumbar spine. Disc space narrowing at L2-3, L3-4, L4-5, and L5-S1. Disc space narrowing and degenerative changes are most severe along the inner curvature of dextroscoliosis. The sacroiliac joints are normal. No suspicious bony lesions. Soft tissues: Overlying bowel gas pattern is normal. No suspicious soft tissue calcifications. Oblique images: No pars defects. IMPRESSION: 1. No acute abnormality. 2. Multilevel degenerative changes of the lumbar spine with disc disease at L2-3, L3-4, L4-5, and L5-S1 and multilevel facet arthropathy. Dictated by: Shai Retana M.D. on 06/25/2023 at 9:48 Approved by: Shai Retana M.D. on 06/25/2023 at 9:52
== END ==
PROVIDERS: Family Provider Family Medicine; PCP Family Medicine; Referring Provider Physical Medicine & Rehabilitation; Visit Provider Physical Medicine & Rehabilitation
DX: M47.26 Other spondylosis with radiculopathy, lumbar region (principal); M47.27 Other spondylosis with radiculopathy, lumbosacral region; M48.061 Spinal stenosis, lumbar region without neurogenic claudication; G57.93 Unspecified mononeuropathy of bilateral lower limbs; M17.12 Unilateral primary osteoarthritis, left knee; M41.45 Neuromuscular scoliosis, thoracolumbar region
CPT/HCPCS: 72110; 99214

== ENCOUNTER 2023-07-10 10:15 | Outpatient (CLI) | payer MEDICARE, OTHER, SELFPAY ==
[2023-07-10] VITALS (7 sets, daily range): BP systolic 111–158; BP diastolic 59–78; PULSE 69–86; RESP 8–20; TEMP 36.1; O2SAT 98–100
--- NOTE | 2023-07-10 10:18 | DI.RAD.S_ITS ---
PROCEDURE: PAIN L/S FACET INJ/BLK 1ST ANDERS INDICATIONS: SPONDYLOSIS COMPARISON: None. FINDINGS: Fluoroscopic spot filming was performed to verify placement of spinal needles at the bilateral L3, L4 and L5 Leeanne-pedicular level(s), as labeled on the films. Appropriate location(s) of the needle tip(s) was confirmed by injection of iodinated contrast. IMPRESSION: Access needles placed for bilateral L3, L4 and L5 medial branch block. Dictated by: Philomena Stewart MD, PhD on 07/10/2023 at 13:23 Approved by: Philomena Stewart MD, PhD on 07/10/2023 at 13:24
--- NOTE | 2023-07-10 10:45 | PC.NURSE ---
Patients has multiple drug allergies reviewed with patient and her daughter Ludy. They stated that she did not experience any adverse reactions for her last injection in 2020. Patient also is unable to tolerate IV fluids due to the preservative in them. Pharmacy was contacted to try to obtain preservative free IV fluid; however, [facility] does not stock preservative free fluids. Dr. Rosario notified of patient's allergies and potential adverse reactions that could occur today due to her past history of anaphylaxis.
[2023-07-10] MEDS: BUPIVACAINE 0.5% (PF) 10 ML VIAL 5 ML INJ (11:03)
[2023-07-10] MEDS: iopamidoL 15 ML VIAL 3 ML INJ (11:03)
--- NOTE | 2023-07-10 11:17 | PM.PROC.IR.1 ---
Date/Time/Diagnoses Date of procedure: 07/10/23 Time of procedure: 11:17 Pre-procedure diagnosis: FACET ARTHROPATHY Post-procedure diagnosis: same Procedure Notes Procedure: 1. BILATERAL L3, L4 AND L5 DIAGNOSTIC MB BLOCKS Indications: Bella is referred by Dr. Llanos for treatment of Bilateral Axial LBP. Physician: Juan Carlos Rosario Total Fluoroscopy time (seconds): 11 Total sedation minutes: 0 Complications: none Procedure in detail & Post-procedure care: DESCRIPTION OF PROCEDURE Fluoroscopically guided, contrast-controlled bilateral L3, L4 AND L5 medial branch blocks with 0.5cc of 0.5% Marcaine. Following review of allergy and review of potential side effects and complications, including, but not necessarily limited to, infection, allergic reaction, local tissue breakdown, nerve injury, paralysis, stroke and possible , the patient indicated that the patient understood and agreed to proceed. An informed consent document was signed by the patient, witnessed by a nurse, and placed in the patient's chart. After review of previous anaesthesic history and IV conscious sedation the patient was deemed safe to proceed with today's procedure with IV conscious sedation as ASA class II designation. Safety time-out was performed to confirm patient ID, procedure to be performed and site of procedure. IV sedation was deemed unnecessary and thus not administered by the RN after DO order, titrated to patient comfort during the course of the procedure while the patient remained responsive to all verbal commands In the prone position, following sterile prep and drape of the lumbar region, the right L3, L4 AND L5 anatomical location of the medial branch of the dorsal ramus was identified fluoroscopically. Subsequently an anesthetic skin wheal using 1% lidocaine solution was initiated at each of the anatomical spots. Subsequently then a 22-gauge 3.5-inch spinal needle was atraumatically introduced and advanced under fluoroscopic guidance at each of the corresponding sites at the right L3, L4 and L5 MB. After negative aspiration, 0.2cc of Isovue 200 was injected, confirming placement without vascular or intrathecal uptake. Subsequently then 0.5cc of 0.5% Marcaine solution was injected at each of the corresponding sites at the right L3, L4 and L5 medial branch locations. The identical procedure was replicated on the left. The patient tolerated the procedure well without signs or symptoms of complications. The patient tolerated the procedure well without signs or symptoms of complications prior to transfer to the recovery area continued monitoring without incident. Post-procedure, the patient was monitored initiating provocative activities to measure the amount of relief from block of the facetogenic pain. The patient reported a VAS of 7 prior to the procedure and a post-procedure VAS of 1. It has been a pleasure to assist in the diagnostic and therapeutic care of your patient. POST OP INSTRUCTIONS The patient was provided with a Pain Log to complete over the next several hours and subsequent days prior to the patient's follow up with the ordering physician. If the patient has resource recovery engineer relief to the solution applied, then they may be a candidate for medial branch rhizotomy. The patient is aware, was provided, once again, with a Pain Log and will follow up with the referring physician for review and clinical correlation
== END 2023-07-10 11:33 | disposition home or self-care (01) ==
LOC: RAD 10:16
PROVIDERS: Family Provider Family Medicine; PCP Family Medicine; Referring Provider Physical Medicine & Rehabilitation; Visit Provider Physical Medicine & Rehabilitation
DX: M47.816 Spondylosis without myelopathy or radiculopathy, lumbar region (principal)
CPT/HCPCS: 64493; 64494

== ENCOUNTER → 2023-08-13 09:21 | Outpatient (CLI) | payer MEDICARE, OTHER, SELFPAY ==
[2023-08-13 10:25] LABS: Add Manual Diff / Slide Review NO; Basophils Absolute Auto 100 /uL (0-100); Eosinophils Absolute Auto 100 /uL (0-450); Eosinophils Percent Auto 1.9 % (2-4); Hematocrit 41.4 % (36-46); Hemoglobin 13.7 g/dL (12.0-16.0); Lymphocytes Absolute Auto 1700 /uL (1100-4500); Lymphocytes Percent Auto 23.4 % (25-40); Mean Corpuscular HGB Conc 33.2 % (30-36); Mean Corpuscular Hemoglobin 29.9 PG (26-34); Mean Corpuscular Volume 90.2 fL (80-100); Monocytes Absolute Auto 800 /uL (0-900); Neutrophils Absolute Auto 4500 /uL (1500-7000); Neutrophils Percent Auto 62.7 % (50-75); Platelet Count 241 X10^3/uL (150-400); Red Blood Cell Count 4.59 X10^6/uL (4.0-5.2); Red Cell Distribution Width 13.5 % (11.6-14.8); White Blood Cell Count 7.2 X10^3/uL (4.5-11.0)
[2023-08-13 10:50] LABS: Alanine Aminotransferase 17 IU/L (<35); Albumin 4.1 g/dL (3.5-5.0); Albumin Globulin Ratio 1.3 (1.0-2.8); Alkaline Phosphatase 71 U/L (38-126); Aspartate Aminotransferase 25 IU/L (14-36); BUN Creatinine Ratio 30.7 (6-22); Bilirubin Total 1.3 mg/dL (0.2-1.3); Blood Urea Nitrogen 23 mg/dL (7-17); Calcium 9.8 mg/dL (8.4-10.2); Carbon Dioxide 32 mmol/L (22-32); Chloride 103 mmol/L (98-107); Cholesterol 210 mg/dL (140-199); Estimated Glomerular Filt Rate > 60 mL/min (>60); Globulin 3.2 g/dL (1.7-4.1); Glucose 96 mg/dL (80-110); HDL Cholesterol 65 mg/dL (40-60); HEMOLYSIS < 15 (0-50); LDL Cholesterol Calculated 125 mg/dL (<100); Potassium 4.7 mmol/L (3.4-5.1); Sodium 138 mmol/L (137-145); Total Protein 7.3 g/dL (6.3-8.2); Triglycerides 102 mg/dL (35-150)
[2023-08-13 11:04] LABS: Appearance Urine UA CLEAR; Bilirubin Urine UA NEGATIVE (NEGATIVE); Color Urine UA YELLOW; Glucose Urine UA NEGATIVE (Negative); Ketones Urine UA NEGATIVE (NEGATIVE); Leukocyte Esterase Urine UA NEGATIVE (NEGATIVE); Nitrite Urine UA NEGATIVE (Negative); Occult Blood Urine UA TRACE-INTACT (Negative); Protein Urine UA NEGATIVE (Negative); Urobilinogen Urine UA 0.2 E.U./dL (0.2)
[2023-08-13 11:06] LABS: pH Urine UA 5.5 (4.5-8.0)
[2023-08-13 11:40] LABS: Bacteria Urine Few (2-10); Culture Indicated Urine Cult Not Indicated; RBC Urine 0-1/HPF (0-5/HPF); Squamous Epithelial Cell Urine 1-5 /HPF (0-5/HPF); WBC Urine 0-1/HPF (0-5/HPF)
[2023-08-14 14:10] LABS: Microalbumin Urine Random 0.9 mg/dL (0-1.6)
[2023-08-14 14:23] LABS: Creatinine Urine Random 115.5 mg/dL; Microalbumi Creatinin Ratio Ur 7.7 ug/mg CR (<30)
[2023-08-14 15:34] LABS: Hep C Virus Ab w/Reflex Quant NEGATIVE s/c (NEGATIVE)
== END ==
PROVIDERS: Family Provider Family Medicine; PCP Family Medicine; Referring Provider Family Medicine; Visit Provider Family Medicine
DX: M41.9 Scoliosis, unspecified (principal); R35.0 Frequency of micturition; R79.89 Other specified abnormal findings of blood chemistry; M17.12 Unilateral primary osteoarthritis, left knee
CPT/HCPCS: 36415; 80053; 80061; 81001; 82043; 82570; 85025; 86803

== ENCOUNTER → 2023-09-27 17:28 | Outpatient (CLI) | payer MEDICARE, OTHER, SELFPAY | PROVIDERS: Family Provider Family Medicine; PCP Family Medicine; Visit Provider Physician Assistant Surgical | DX: R30.0 Dysuria (principal) | CPT/HCPCS: 87086 ==

== ENCOUNTER → 2023-09-28 08:48 | Outpatient (CLI) | payer MEDICARE, OTHER, SELFPAY ==
[2023-09-28 12:39] LABS: Occult Blood 1 Negative (Negative)
== END ==
PROVIDERS: Family Provider Family Medicine; PCP Family Medicine; Referring Provider Physician Assistant Surgical; Visit Provider Physician Assistant Surgical
DX: K92.1 Melena (principal)
CPT/HCPCS: 82270

== ENCOUNTER 2023-12-11 08:14 | Outpatient (CLI) | payer MEDICARE, OTHER, SELFPAY ==
[2023-12-11] VITALS (8 sets, daily range): BP systolic 131–187; BP diastolic 57–93; PULSE 77–85; RESP 11–17; TEMP 36.5; O2SAT 96–100
--- NOTE | 2023-12-11 08:45 | DI.RAD.S_ITS ---
PROCEDURE: PAIN L/S FACET INJ/BLK 1ST ANDERS INDICATIONS: FACET ARTHOPATHY COMPARISON: [facility], , PAIN L/S FACET INJ/BLK 1ST ANDERS, 07/10/2023, 12:01. FINDINGS: Fluoroscopic spot filming was performed to verify placement of spinal needles at the L3, L4, and L5 level(s), as labeled on the films. Appropriate location(s) of the needle tip(s) was confirmed by injection of iodinated contrast. IMPRESSION: Fluoroscopically guided bilateral L3-L5 injections. Dictated by: Kiley Delacruz M.D. on 12/11/2023 at 11:43 Approved by: Kiley Delacruz M.D. on 12/11/2023 at 11:43
--- NOTE | 2023-12-11 08:59 | PC.NURSE ---
Patient reports that she has an allergy to anything containing preservatives. Reports that she had no issues with her injection last time. She also reports that she breaks out in a rash after use of chloraprep was update don allergies. MD notified of these concerns.
[2023-12-11] MEDS: LIDOCAINE 2% INJ SDV 5ML 10 ML INJ (09:30)
--- NOTE | 2023-12-11 09:30 | PM.PROC.IR.1 ---
Date/Time/Diagnoses Date of procedure: 12/11/23 Time of procedure: 09:30 Pre-procedure diagnosis: 1. FACET ARTHROPATHY Post-procedure diagnosis: same Procedure Notes Procedure: 1. BILATERAL L3, L4 AND L5 DIAGNOSTIC MB BLOCKS Indications: Bella is referred by Dr. Llanos for treatment of Bilateral Axial LBP. Physician: Juan Carlos Rosario Total Fluoroscopy time (seconds): 12 Total sedation minutes: 0 Complications: none Procedure in detail & Post-procedure care: DESCRIPTION OF PROCEDURE Fluoroscopically guided, contrast-controlled bilateral L3, L4 AND L5 medial branch blocks with 0.5cc of 2% Lidocaine. Following review of allergy and review of potential side effects and complications, including, but not necessarily limited to, infection, allergic reaction, local tissue breakdown, nerve injury, paralysis, stroke and possible , the patient indicated that the patient understood and agreed to proceed. An informed consent document was signed by the patient, witnessed by a nurse, and placed in the patient's chart. After review of previous anaesthesic history and IV conscious sedation the patient was deemed safe to proceed with today's procedure with IV conscious sedation as ASA class II designation. Safety time-out was performed to confirm patient ID, procedure to be performed and site of procedure. IV sedation was deemed unnecessary and thus not administered by the RN after DO order, titrated to patient comfort during the course of the procedure while the patient remained responsive to all verbal commands In the prone position, following sterile prep and drape of the lumbar region, the right L3, L4 AND L5 anatomical location of the medial branch of the dorsal ramus was identified fluoroscopically. Subsequently an anesthetic skin wheal using 1% lidocaine solution was initiated at each of the anatomical spots. Subsequently then a 22-gauge 3.5-inch spinal needle was atraumatically introduced and advanced under fluoroscopic guidance at each of the corresponding sites at the right L3, L4 and L5 MB. After negative aspiration, 0.2cc of Isovue 200 was not injected due to patient allergy. Subsequently then 0.5cc of 2% Lidocaine solution was injected at each of the corresponding sites at the right L3, L4 and L5 medial branch locations. The identical procedure was replicated on the left. The patient tolerated the procedure well without signs or symptoms of complications. The patient tolerated the procedure well without signs or symptoms of complications prior to transfer to the recovery area continued monitoring without incident. Post-procedure, the patient was monitored initiating provocative activities to measure the amount of relief from block of the facetogenic pain. The patient reported a VAS of 7 prior to the procedure and a post-procedure VAS of 1. It has been a pleasure to assist in the diagnostic and therapeutic care of your patient. POST OP INSTRUCTIONS The patient was provided with a Pain Log to complete over the next several hours and subsequent days prior to the patient's follow up with the ordering physician. If the patient has healthcare applications analyst relief to the solution applied, then they may be a candidate for medial branch rhizotomy. The patient is aware, was provided, once again, with a Pain Log and will follow up with the referring physician for review and clinical correlation
[2023-12-11] MEDS: LIDOCAINE 1% (PF) 5 ML 10 ML INJ (09:31)
[2023-12-11] MEDS: iopamidoL 15 ML VIAL 3 ML INJ (09:31)
--- NOTE | 2023-12-11 10:23 | PC.NURSE ---
Patient denies any chest pain, SOB and H/A. Bandaids to lower back are CDI no noted rash or itching. Patient received no sedations just pre medicated with Dramamine prior and continues to feel drowsy. MD aware b/p has increased and ok to d/c home. Patient denies any pain or discomfort at this time.
== END 2023-12-11 10:15 | disposition home or self-care (01) ==
LOC: RAD 08:14
PROVIDERS: Family Provider Family Medicine; PCP Family Medicine; Referring Provider Physical Medicine & Rehabilitation; Visit Provider Physical Medicine & Rehabilitation
DX: M47.816 Spondylosis without myelopathy or radiculopathy, lumbar region (principal)
CPT/HCPCS: 64493; 64494

== ENCOUNTER 2024-02-07 07:23 | Outpatient (CLI) | payer MEDICARE, OTHER, SELFPAY ==
[2024-02-07] VITALS (27 sets, daily range): BP systolic 140–213; BP diastolic 67–99; PULSE 63–85; RESP 16–26; TEMP 36.8; O2SAT 94–100
--- NOTE | 2024-02-07 08:00 | DI.RAD.S_ITS ---
PROCEDURE: PAIN L/S MED/LAT N RFA BILAT INDICATIONS: Bilateral L3-L4 and L5 medial branch RFA COMPARISON: None. FINDINGS: Fluoroscopic spot filming was performed to verify placement of spinal needles at the level(s) L2-3 through L4-5, as labeled on the films. Appropriate location(s) of the needle tip(s) was confirmed by injection of iodinated contrast. IMPRESSION: Fluoroscopic support for medial branch RFA the bilateral lumbar spine. Please see separate procedure note for further details. Dictated by: Tai Fernandez M.D. on 02/07/2024 at 10:37 Approved by: Tai Fernandez M.D. on 02/07/2024 at 10:41
[2024-02-07] MEDS: diphenhydrAMINE 50 MG/ML VIAL 25 MG IV ×2 (08:15→08:53)
[2024-02-07] MEDS: MIDAZOLAM 2 MG/2 ML VIAL 1 MG IV ×2 (08:15→08:38)
[2024-02-07] MEDS: LIDOCAINE 1% 20 ML 5 ML INJ (08:32)
[2024-02-07] MEDS: BUPIVACAINE 0.5% (PF) 10 ML VIAL 5 ML INJ (08:32)
--- NOTE | 2024-02-07 09:02 | P.PCN_ITS ---
Date/Time/Diagnoses Date of procedure: 02/07/24 Time of procedure: 09:02 Pre-procedure diagnosis: 1. RECALCITRANT FACET ARTHROPATHY Post-procedure diagnosis: same Procedure Notes Procedure: 1. BILATERAL L3, L4 AND L5 MEDIAL BRANCH RADIOFREQUENCY NEUROTOMY Indications: Bella is referred by Dr. Llanos for treatment of facet arthropathy. Physician: Juan Carlos Rosario Total Fluoroscopy time (seconds): 23 Total sedation minutes: 40 Complications: none Procedure in detail & Post-procedure care: DESCRIPTION OF PROCEDURE Bilateral L3, L4 and L5 medial branch radiofrequency neurotomy The patient is well known to this clinic having undergone previous facet injections with good but temporary relief. The patient has experienced appropriate, concordant relief with previous facet and median branch blocks but the patient's pain has been recalcitrant to further conservative measures. Therefore, based upon the patient's relief and persistent symptoms, the patient is considered an appropriate candidate for facet rhizotomy. All of the patient's questions regarding the risks versus benefits of the procedure, including, but not limited to, bleeding, infection, temporary as well as lasting nerve injury, paralysis, stroke, and , as well treatment alternatives were answered to satisfaction. After obtaining informed consent, denial of pertinent drug allergies, as well as being made aware of the potential risks of bleeding, infection, spinal cord trauma, paralysis, temporary and permanent nerve damage, seizure, stroke, and possible , the patient was brought to the fluoroscopy suite and positioned prone on the fluoroscopy table. After review of previous anaesthesic history and IV conscious sedation the patient was deemed safe to proceed with today's procedure with IV conscious sedation as ASA class II designation. Safety time-out was performed to confirm patient ID, procedure to be performed and site of procedure. IV sedation was accomplished with a combination of 2mg of Versed and 50mg of Bendaryl was administered by the RN after DO order, titrated to patient comfort during the course of the procedure while the patient remained responsive to all verbal commands. The lumbar region was prepped in usual sterile fashion and covered with a fenestrated drape in the usual sterile fashion. Appropriate monitors applied including pulse oximeter, pulse, and blood pressure for regular monitoring throughout the procedure. After local infiltration using 1% lidocaine, under fluoroscopic guidance, a 10- cm RF insulated needle with a 10-mm active tip was positioned parallel to the j unction of the right the superior articulating process where the L5 medial branch resides. Needle placement was confirmed with motor stimulation of .5v on the right which produced local stimulation without radicular component. The stimulation was then increased to 2v with, once again, only local multifidus stimulation without radicular component. The needle was then removed and the identical procedure was performed along the length of the right L4 medial branch with motor stimulation at .7v on the right. The identical procedure was once again performed along the length of the right L3 and medial branch with motor stimulation of .5v on the right. The medial branches were then anesthetised with 0.5% marcaine. This was then followed by two discreet lesions performed at 80 degrees Celsius for 90 seconds each. The identical procedures were repeated on the left. The patient tolerated the procedure well without signs or symptoms of complications prior to transfer to the recovery area continued monitoring without incident. The patient was then transferred to the recovery area where they were observed for an appropriate period of time after the injection. The patient reported a VAS score of 9 prior to the procedure and a post-procedure VAS of 0. POST OP INSTRUCTIONS The patient was provided a Pain Log to continue to record the patient's response to the target-specific procedure prior to the patient's follow-up visit with the referring physician. Additionally, specific post-injection care instructions and a contact number to our office were provided if concerns arise regarding possible complications associated with the procedure are suspected.
--- NOTE | 2024-02-07 09:20 | PC.NURSE ---
Patient's systolic BP increased greater than 50 points on arrival to the post procedure area. Per Patient's daughter, Ludy, this happened last time. Dr. Rosario notified.
--- NOTE | 2024-02-07 10:30 | PC.NURSE ---
Patien't daughter, Ludy, was brought in to the post procedure area to sit with patient at 0945. Ludy was not concerned about the increase in BP. She stated that, you guys just kept her here longer. Patient's BP did come back down at [address] for [address] Rosario notified and Stated that it was ok to discharge patient. Patient and daughter notified that if she noticed any stroke symptoms to go to the ER immediatley eg. weakness, vision changes, WHITTAKER, etc. Patient also encouraged to use her home BP monitor to make sure that her BP stays down.
== END 2024-02-07 10:17 | disposition home or self-care (01) ==
PROVIDERS: Family Provider Family Medicine; PCP Family Medicine; Referring Provider Physical Medicine & Rehabilitation; Visit Provider Physical Medicine & Rehabilitation
DX: M47.816 Spondylosis without myelopathy or radiculopathy, lumbar region (principal)
CPT/HCPCS: 64635; 64636; 99152; 99153; J1200; J2250

== ENCOUNTER 2024-03-20 13:32 | Outpatient (CLI) | payer MEDICARE, OTHER, SELFPAY ==
[2024-03-20] VITALS (10 sets, daily range): BP systolic 161–218; BP diastolic 64–89; PULSE 75–85; RESP 17–20; TEMP 36.8; O2SAT 94–100
--- NOTE | 2024-03-20 14:00 | DI.RAD.S_ITS ---
PROCEDURE: PAIN L/S TRANSFORAM INJECT ANDERS COMPARISON: None. TECHNIQUE: Fluoroscopic guidance utilized for a bilateral L4-5 epidural steroid injection COMPARISON: None. FINDINGS: Fluoroscopic images submitted for a epidural steroid injection. Please see operative note for further discussion. IMPRESSION: Fluoroscopic guidance. Dictated by: Chris Stout M.D. on 03/20/2024 at 16:51 Approved by: Chris Stout M.D. on 03/20/2024 at 16:52
[2024-03-20] MEDS: MIDAZOLAM 2 MG/2 ML VIAL IV (14:33)
[2024-03-20] MEDS: diphenhydrAMINE 50 MG/ML VIAL IV (14:34)
[2024-03-20] MEDS: iopamidoL 15 ML VIAL 3 ML INJ (14:37)
[2024-03-20] MEDS: BETAMETHASONE 30 MG/5 ML MDV 12 MG INJ (14:38)
[2024-03-20] MEDS: BUPIVACAINE 0.25% (PF) VIAL 2 ML INJ (14:38)
[2024-03-20] MEDS: DEXAMETHASONE 10 MG/ML VIAL 20 MG INJ (14:38)
--- NOTE | 2024-03-20 14:57 | PM.PROC.IR.1 ---
Date/Time/Diagnoses Date of procedure: 03/20/24 Time of procedure: 14:58 Pre-procedure diagnosis: 1. FORAMINAL STENOSIS WITH LE SYMPTOMS Procedure Notes Procedure: 1. FLUOROSCOPICALLY GUIDED CONTRAST CONTROLLED TRANSFORAMINAL EPIDURAL STEROID INJECTION - BILATERAL L4/5 TFESI Indications: Bella is referred by Dr. Llanos for treatment of Foraminal Stenosis with bilateral LE Symptoms Physician: Juan Carlos Rosario Total Fluoroscopy time (seconds): 17 Total sedation minutes: 18 Complications: none Procedure in detail & Post-procedure care: FINDINGS Foraminal Nerve Root Compression secondary to disc disease and facet hypertrophy DESCRIPTION OF PROCEDURE Following review of allergy and review of potential side effects and complications, including, but not necessarily limited to, infection, allergic reaction, local tissue breakdown, stroke, temporary or permanent nerve injury, paralysis, and possible , the patient indicated that the patient understood and agreed to proceed. An informed consent document was signed by the patient, witnessed by a nurse, and placed in the patient's chart. Additionally, other treatment options including medications, modalities, and physical therapy were reviewed with the patient. After review of previous anaesthesic history and IV conscious sedation the patient was deemed safe to proceed with today?s procedure with IV conscious sedation as ASA class II designation. Safety time-out was performed to confirm patient ID, procedure to be performed and site of procedure. IV sedation was accomplished with a combination of 2mg of Versed and 50mg of Benadryl was administered by the RN after DO order, titrated to patient comfort during the course of the procedure while the patient remained responsive to all verbal commands In the prone position following sterile prep and drape of the lumbar region, the right L4/5 posterior neuroforamen was identified fluoroscopically. The skin was anesthetized via a 25-gauge 1.5-inch needle with 1% lidocaine solution. At this point, a 25-gauge 3.5-inch spinal needle was atraumatically introduced and advanced under fluoroscopic guidance through the posterior right L4/5 neuroforamen to approximately the anterior aspect of the canal. Depth was confirmed on lateral view. Following negative aspiration, injection of approximately 1.5cc of Isovue 200 under live fluoroscopy in the AP view confirmed excellent flow along the nerve root, into the epidural space without vascular or intrathecal uptake observed Radiological data, including multiple fluoroscopic views of the lumbosacral spine, reveal a spinal needle at the right L4/5 posterior neuroforamen. Subsequent views show flow of contrast material flowing superiorly and inferiorly along the nerve root confirming epidural flow. Subsequently, a test dose of 1.5cc of 1% lidocaine solution was administered and patient was observed for two minutes for signs or symptoms of complications, including abdominal pain, shortness of breath, bilateral upper or lower extremity weakness, nausea and vomiting, prior to steroid injection. At this point, a total of 2cc or 10mg of dexamethasone and 6mg betamethasone was injected without incident. Attention was then refocused to the left L4/5 level where the identical procedure was replicated. The procedure tolerated the procedure well without signs or symptoms of complications prior to transfer to the recovery area continued monitoring without incident. The patient was then transferred to the recovery area where they were observed for an appropriate time after the injection. The patient reported a VAS score of 7 prior to the procedure and a post-procedure VAS of 0. POST OP INSTRUCTIONS The patient was provided a Pain Log to continue to record their response to the target-specific procedure prior to follow-up visit with their referring physician. Additionally, specific post-injection care instructions and a contact number to our office were provided if concerns arise regarding possible complications associated with the procedure are suspected.
--- NOTE | 2024-03-20 15:34 | PC.NURSE ---
Arm swelling/IV placement and removal Patient reported large area of swelling and bruising to L lower arm after patient's last pain procedure injection on 02/07/2024. Patient reported that the swelling and bruising started a few hours after she got home that day. Patient stated that she treated it at home with warm compresses and arm elevation and it resolved after a week. Today upon patient recovery there was noted bruising around the IV insertion site. Dr. Rosario at chair side to view the IV site. Dr. Rosario made aware by patient and this RN of her history of the arm swelling and bruising. Dr. Rosario instructed this RN to clean the arm and site of the IV after saline lock removed with alcohol swabs to wipe of any chlorhexidine residue that may be on the patient' s skin from the IV site insertion cleaning process. This RN removed patient's IV and cleaned the arm area with alcohol swabs. Insertion site with small bruising about the size of a dime and bleeding. Site dressed with 2x2 guaze dressing and pressure held for 3 minutes by this RN. Guaze then wrapped with Coban brown wrap with tension placed to continue to hold pressure. Patient instructed to leave Coban dressing in place for 45 mins and to remove at home. Patient's daughter Ludy here to take patient home and this RN discussed with Ludy what was done to help prevent another episode of arm swelling from the IV site. Patient and her daughter both verbalized understanding of instruction. Patient instructed to return to the ER if the same swelling occurred this time.
== END 2024-03-20 15:15 | disposition home or self-care (01) ==
PROVIDERS: Family Provider Family Medicine; PCP Family Medicine; Referring Provider Physical Medicine & Rehabilitation; Visit Provider Physical Medicine & Rehabilitation
DX: M48.061 Spinal stenosis, lumbar region without neurogenic claudication (principal); M51.16 Intervertebral disc disorders with radiculopathy, lumbar region; M47.26 Other spondylosis with radiculopathy, lumbar region
CPT/HCPCS: 64483; 99152; J0702; J1100; J1200; J2250; J3490

== ENCOUNTER → 2024-05-21 15:24 | Outpatient (CLI) | payer MEDICARE, OTHER, SELFPAY ==
--- NOTE | 2024-05-21 15:25 | DI.RAD.S_ITS ---
PROCEDURE: XR FOOT LT MIN 3V INDICATIONS: Left foot injury TECHNIQUE: 3 views of the foot were acquired. COMPARISON: None. FINDINGS: Bones: A small sagittal fracture of the medial base of the 1st proximal phalanx may be chronic. Joints: The joint spaces are normal in width and alignment without arthritic change. Soft tissues: Mild forefoot soft tissue swelling noted. IMPRESSION: Hairline sagittal fracture of the 1st proximal phalangeal base is likely chronic but please correlate with point tenderness. Mild posttraumatic forefoot soft tissue edema. Dictated by: Ronny Frank M.D. on 05/22/2024 at 8:07 Approved by: Ronny Frank M.D. on 05/22/2024 at 8:10
== END ==
PROVIDERS: Family Provider Family Medicine; PCP Family Medicine; Referring Provider Nurse Practitioner Family; Visit Provider Nurse Practitioner Family
DX: S92.412A Displaced fracture of proximal phalanx of left great toe, initial encounter for closed fracture (principal); S99.922A Unspecified injury of left foot, initial encounter; R60.0 Localized edema; X58.XXXA Exposure to other specified factors, initial encounter
CPT/HCPCS: 73630

== ENCOUNTER → 2024-05-28 09:45 | Outpatient (CLI) | payer MEDICARE, OTHER, SELFPAY ==
--- NOTE | 2024-05-28 09:46 | DI.RAD.S_ITS ---
PROCEDURE: XR DEXA AXIAL SKELETON INDICATIONS: osteoporosis COMPARISON: [facility], CR, XR LUMBAR SPINE MIN 4V, 06/25/2023, 8:05. [facility], CR, XR DEXA AXIAL SKELETON, 03/08/2021, 10:31. FINDINGS: Lumbar Spine: Not obtained. Left Hip: Bone mineral density 0.707 g/cm2, T score -1.9. There is interval 2.7% increase in total left hip bone mineral density. Left Femoral Neck: Bone mineral density 0.599 g/cm2, T score -2.3. There is interval 2.4% increase in left femoral neck bone mineral density. Right Hip: Bone mineral density 0.673 g/cm2, T score -2.2. There is interval 3.8% increase in total right hip bone mineral density. Right Femoral Neck: Bone mineral density 0.543 g/cm2, T score -2.8. There is interval 5% decrease in right femoral neck bone mineral density. Left Forearm: Bone mineral density 0.624 g/cm2, T score -1.2. Fracture Risk Calculation (when applicable): 10-year fracture risk of a major osteoporotic fracture 16 percent and of a hip fracture 6.5 percent. (T score greater or equal to -1.0 to: NORMAL) (T score from -1.1 to -2.4: OSTEOPENIA) (T score less than or equal to -2.5: OSTEOPOROSIS) IMPRESSION: Osteoporosis. Follow-up guidelines as follows: Osteoporosis: Consider a repeat DEXA and Vertebral Fracture Assessment (VFA) exam in 2 years or sooner if medically necessary, to reassess this patient's status. Osteopenia: Consider a repeat DEXA in 2-3 years to reassess this patient's status, or if there is a new clinical indication. Normal: Consider a repeat DEXA in 5 years or sooner, or if there is a new clinical indication. All treatment decisions require clinical judgment and consideration of individual patient factors, including patient preferences, comorbidities, previous drug use, risk factors not captured in the FRAX model (e.g., frailty, falls, vitamin D deficiency, increased bone turnover, interval significant decline in bone density ) and possible under- or over-estimation of fracture risk by FRAX. In addition, the NOF Guide recommends that FDA-approved medical therapies be considered in postmenopausal women and men age >= 50 years with a: * Hip or vertebral (clinical or morphometric) fracture * T-score of <=-2.5 at the spine or hip * Ten-year fracture probability by FRAX of >= 3% for hip fracture or >=20% for major osteoporotic fracture. People with diagnosed cases of osteoporosis or at high risk for fracture should have regular bone mineral density tests. For patients eligible for Medicare, routine testing is allowed once every 2 years. The testing frequency can be increased to one year for patients who have rapidly progressing disease, those who are receiving or discontinuing medical therapy to restore bone mass, or have additional risk factors. Dictated by: Mauricio Figueroa M.D. on 05/28/2024 at 11:11 Approved by: Mauricio Figueroa M.D. on 05/28/2024 at 11:12
== END ==
PROVIDERS: Family Provider Family Medicine; PCP Family Medicine; Referring Provider Family Medicine; Visit Provider Family Medicine
DX: M81.0 Age-related osteoporosis without current pathological fracture (principal)
CPT/HCPCS: 77080; 77081

== ENCOUNTER → 2024-06-26 09:51 | Outpatient (CLI) | payer MEDICARE, OTHER, SELFPAY ==
--- NOTE | 2024-06-26 09:52 | DI.RAD.S_ITS ---
PROCEDURE: XR FOOT LT MIN 3V INDICATIONS: left ankle pain TECHNIQUE: 3 views of the foot were acquired. COMPARISON: [facility], CR, XR ANKLE LT MIN 3V, 06/26/2024, 9:51. [facility], CR, XR FOOT LT MIN 3V, 05/21/2024, 15:33. FINDINGS: Bones: No fractures or dislocations. No suspicious bony lesions. Soft tissues: No tibiotalar joint effusion. Achilles tendon appears normal. IMPRESSION: No visualized acute fracture or dislocation. However, if clinical concern and/or pain persist, short interval imaging followup in 7-10 days is recommended, as occult injury cannot be definitively excluded. Dictated by: Alyson Aponte M.D. on 06/28/2024 at 21:52 Approved by: Alyson Aponte M.D. on 06/28/2024 at 21:52
--- NOTE | 2024-06-26 09:52 | DI.RAD.S_ITS ---
PROCEDURE: XR ANKLE LT MIN 3V INDICATIONS: left ankle pain TECHNIQUE: 3 views of the ankle were acquired. COMPARISON: [facility], CR, XR FOOT LT MIN 3V, 06/26/2024, 9:51. FINDINGS: Bones: Curvilinear calcifications are present at the distal fibular tip. Soft tissues: No tibiotalar joint effusion. Achilles tendon appears normal. IMPRESSION: Curvilinear old distal fibular tip calcifications. This could represent avulsion injury. However, recommend correlation point tenderness as there is difficult associated ankle edema. Dictated by: Alyson Aponte M.D. on 06/28/2024 at 21:50 Approved by: Alyson Aponte M.D. on 06/28/2024 at 21:51
== END ==
LOC: RAD 09:52
PROVIDERS: Family Provider Family Medicine; PCP Family Medicine; Referring Provider Family Medicine; Visit Provider Family Medicine
DX: M79.672 Pain in left foot (principal); M25.572 Pain in left ankle and joints of left foot
CPT/HCPCS: 73610; 73630

== ENCOUNTER → 2024-09-23 09:46 | Outpatient (CLI) | payer MEDICARE, OTHER, SELFPAY ==
--- NOTE | 2024-09-23 09:47 | DI.CT.S_ITS ---
PROCEDURE: CT CHEST WO CON INDICATIONS: H/o MAC, pulmonary nodules, eval for change TECHNIQUE: Noncontrast 5 mm thick sections acquired from the pulmonary apices to the posterior costophrenic angles. 1 mm lung window, 5 mm thick coronal and sagittal and 7 mm axial MIP reformats were then acquired. For radiation dose reduction, the following was used: automated exposure control, adjustment of mA and/or kV according to patient size. COMPARISON: [facility], CT, CT CHEST WO [facility], 06/10/2021, 11:10. FINDINGS: Image quality: Diagnostic. Lower Neck: No enlarged lymph nodes. Thyroid: Stable size of a 7 mm hypodense nodule within the right thyroid lobe. No new thyroid nodules. Axillae: No enlarged lymph nodes. Chest Wall: Unremarkable. Bones: Unremarkable. Lungs and Pleura: Biapical pleural thickening is unchanged. Multiple bilateral pulmonary nodules, some of which are calcified, with decrease in size of several nodules and increase in size or new nodules noted. Index nodules as follows: -7 mm noncalcified nodule within the posterolateral right middle lobe (series 3, image 200) appears new. Couple of adjacent satellite nodules are also demonstrated which are new. Additional scattered calcified and noncalcified nodules throughout the right middle lobe appear unchanged. - Small subpleural nodule within the lateral left lung base (series 3, image 230) appears smaller in size. Adjacent satellite nodule is also demonstrated. - Cluster of calcified and noncalcified nodules within the posterolateral right upper lobe (series 3, image 134) appears stable with interval decrease in size of a partially calcified nodule within the subpleural posterolateral right upper lobe (series 3, image 131), previously measuring 7 mm and currently 3-4 mm in size. An adjacent satellite nodule is also seen which appears stable to slightly decreased in size. Adjacent associated endobronchial mucous plugging within posterior segmental bronchi of the right upper lobe appears unchanged. - Cluster of micro nodules within the anterior left lower lobe (series 3, image 217) appears stable. - Calcified and noncalcified nodules throughout the right lower lobe appear unchanged. -7 mm nodule within the central left lower lobe (series 3, image 186) appears larger in size. No evidence of pneumothorax or pleural effusion. Multifocal areas of mucous plugging involving the medial left upper lobe (series 3, image 144) and medial right middle lobe (series 3, image 189). Heart: Heart size is normal. No pericardial effusion. Thoracic Vessels: The aorta and pulmonary arteries demonstrate normal size. Mediastinum and Amanda: No enlarged lymph nodes. Esophagus: No wall thickening. No hiatal hernia. Upper Abdomen: Visualized upper abdomen solid organs and bowel loops appear normal. IMPRESSION: Waxing and waning appearance of bilateral pulmonary nodules with some nodules decreased in size and additional nodules which are new and/or increased in size. This is seen in conjunction with scattered areas of micronodularity and multifocal areas of mucous plugging and likely related to known MAC infection versus granulomatous disease. Dictated by: Pablo Jarrett M.D. on 09/23/2024 at 13:00 Approved by: Pablo Jarrett M.D. on 09/23/2024 at 13:32
== END ==
PROVIDERS: Family Provider Family Medicine; PCP Family Medicine; Referring Provider Internal Medicine Critical Care Medicine; Visit Provider Internal Medicine Critical Care Medicine
DX: R91.8 Other nonspecific abnormal finding of lung field (principal)
CPT/HCPCS: 71250

== ENCOUNTER → 2024-09-30 08:30 | Outpatient (CLI) | payer MEDICARE, OTHER, SELFPAY | LOC: RESP 08:30 | PROVIDERS: Family Provider Family Medicine; PCP Family Medicine; Referring Provider Internal Medicine Critical Care Medicine; Visit Provider Internal Medicine Critical Care Medicine | DX: R06.09 Other forms of dyspnea (principal); F17.210 Nicotine dependence, cigarettes, uncomplicated; J98.8 Other specified respiratory disorders; R94.2 Abnormal results of pulmonary function studies | CPT/HCPCS: 94010; 94726; 94729 ==

== ENCOUNTER → 2024-10-16 08:32 | Outpatient (CLI) | payer MEDICARE, OTHER, SELFPAY ==
[2024-10-16 09:02] LABS: Add Manual Diff / Slide Review NO; Basophils Absolute Auto 100 /uL (0-100); Basophils Percent Auto 1.5 % (0-2); Eosinophils Absolute Auto 200 /uL (0-450); Eosinophils Percent Auto 2.9 % (2-4); Hemoglobin 14.2 g/dL (12.0-16.0); Lymphocytes Absolute Auto 2100 /uL (1100-4500); Lymphocytes Percent Auto 31.5 % (25-40); Mean Corpuscular HGB Conc 33.1 % (30-36); Mean Corpuscular Hemoglobin 29.8 PG (26-34); Mean Corpuscular Volume 90.1 fL (80-100); Monocytes Absolute Auto 700 /uL (0-900); Monocytes Percent Auto 10.5 % (3-14); Neutrophils Absolute Auto 3600 /uL (1500-7000); Neutrophils Percent Auto 53.6 % (50-75); Platelet Count 241 X10^3/uL (150-400); Red Blood Cell Count 4.77 X10^6/uL (4.0-5.2); Red Cell Distribution Width 13.8 % (11.6-14.8); White Blood Cell Count 6.7 X10^3/uL (4.5-11.0)
[2024-10-16 09:30] LABS: Alanine Aminotransferase 17 IU/L (<35); Albumin 4.1 g/dL (3.5-5.0); Albumin Globulin Ratio 1.5 (1.0-2.8); Alkaline Phosphatase 66 U/L (38-126); Aspartate Aminotransferase 25 IU/L (14-36); Bilirubin Total 0.9 mg/dL (0.2-1.3); Blood Urea Nitrogen 24 mg/dL (7-17); Calcium 9.5 mg/dL (8.4-10.2); Carbon Dioxide 31 mmol/L (22-32); Chloride 104 mmol/L (98-107); Cholesterol 232 mg/dL (140-199); Estimated Glomerular Filt Rate > 60 mL/min (>60); Globulin 2.8 g/dL (1.7-4.1); Glucose 95 mg/dL (80-110); HDL Cholesterol 67 mg/dL (40-60); HEMOLYSIS < 15 (0-50); LDL Cholesterol Calculated 139 mg/dL (<100); Potassium 4.5 mmol/L (3.4-5.1); Sodium 138 mmol/L (137-145); Total Protein 6.9 g/dL (6.3-8.2); Triglycerides 128 mg/dL (35-150)
[2024-10-16 10:04] LABS: TSH w/ Reflex to FT4 3.88 uIU/mL (0.47-4.68)
== END ==
PROVIDERS: Family Provider Family Medicine; PCP Family Medicine; Referring Provider Family Medicine; Visit Provider Family Medicine
DX: R06.09 Other forms of dyspnea (principal); M81.0 Age-related osteoporosis without current pathological fracture; M51.369 Other intervertebral disc degeneration, lumbar region without mention of lumbar back pain or lower extremity pain; R79.89 Other specified abnormal findings of blood chemistry
CPT/HCPCS: 36415; 80053; 80061; 84443; 85025

== ENCOUNTER → 2025-03-10 09:50 | Outpatient (CLI) | payer MEDICARE, OTHER, SELFPAY ==
--- NOTE | 2025-03-10 09:52 | DI.RAD.S_ITS ---
PROCEDURE: XR SHOULDER LT MIN 2V INDICATIONS: left shoulder pain TECHNIQUE: Three views of the left shoulder were acquired. COMPARISON: [facility], CT, CT CHEST WO CON, 09/23/2024, 9:52. FINDINGS: Bones: A vague 6 x 3 cm sclerotic lesion is present in the lateral scapular body extending the subglenoid region. Acromioclavicular and glenohumeral joints: Normal in width and alignment without arthritic change Soft tissues: No soft tissue swelling, calcification or mass. IMPRESSION: 6 cm sclerotic lesion in the lateral scapular body extending to the glenoid. This region appeared normal on a chest CT from 09/23/2024. Suggest bone scan. Dictated by: Ronny Frank M.D. on 03/11/2025 at 11:11 Approved by: Ronny Frank M.D. on 03/11/2025 at 11:17
== END ==
PROVIDERS: Family Provider Family Medicine; PCP Family Medicine; Referring Provider Family Medicine; Visit Provider Family Medicine
DX: M19.012 Primary osteoarthritis, left shoulder (principal); M89.8X1 Other specified disorders of bone, shoulder
CPT/HCPCS: 73030

== ENCOUNTER → 2025-03-23 10:49 | Outpatient (CLI) | payer MEDICARE, OTHER, SELFPAY ==
--- NOTE | 2025-03-23 10:50 | DI.NM.S_ITS ---
PROCEDURE: NM BONE SCAN WHOLE BODY RADIOPHARMACEUTICAL: 22 mCi Tc-99m MDP IV. INDICATIONS: 6cm sclerotic lesion in lateral scapular body ext to glenoid TECHNIQUE: Delayed whole-body scintigrams were obtained approximately 3-4 hours after intravenous injection of radiotracer. Anterior and posterior views were acquired from vertex to feet. Additional left and right oblique views of the chest and shoulder were obtained. COMPARISON: [facility], CT, CT CHEST WO CON, 09/23/2024, 9:52. [facility], CR, XR SHOULDER LT 2+ VIEWS, 03/10/2025, 9:53. FINDINGS: Radiotracer excretion is seen in the urinary system. Mild upper extremity and lower extremity degenerative changes are present. Suspect lower lumbar degenerative uptake and curvature also present. No suspicious focal uptake in the left shoulder. IMPRESSION: No suspicious focal uptake identified corresponding to the radiographic abnormality of the left scapula. If there is a history of malignancy or focal symptoms, consider further evaluation with MRI. Dictated by: Phani Tillman M.D. on 03/23/2025 at 16:15 Approved by: Phani Tillman M.D. on 03/23/2025 at 16:18
== END ==
LOC: NUCM 10:49
PROVIDERS: Family Provider Family Medicine; PCP Family Medicine; Referring Provider Family Medicine; Visit Provider Family Medicine
DX: M25.512 Pain in left shoulder (principal); M75.82 Other shoulder lesions, left shoulder; R93.89 Abnormal findings on diagnostic imaging of other specified body structures
CPT/HCPCS: 78306; A9503

== ENCOUNTER → 2025-06-01 10:15 | Outpatient (CLI) | payer MEDICARE, OTHER, SELFPAY ==
--- NOTE | 2025-06-01 10:16 | DI.CT.S_ITS ---
PROCEDURE: CT HEAD/BRAIN WO CON INDICATIONS: ground level fall on concrete TECHNIQUE: Noncontrast 4.5 mm thick angled axial sections acquired from the foramen magnum to the vertex, with coronal and sagittal reformats. For radiation dose reduction, the following was used: automated exposure control, adjustment of mA and/or kV according to patient size. COMPARISON: None. FINDINGS: Image quality: Diagnostic. Some images are limited by beam hardening artifacts most notably at the base of the skull. Ventricles and cortical sulci are moderately dilated commonly represents a pattern of atrophy although dilatation of the ventricles is somewhat out of proportion to dilatation cortical sulci and an element of communicating hydrocephalus could be considered.. Mild areas of low-attenuation in the periventricular and deep white matter commonly related to chronic small vessel ischemic changes. No CT evidence of intracranial hemorrhage, mass lesion, mass effect, acute or subacute infarct. The orbits, scalp, calvarium, paranasal sinuses, mastoid air cells, middle ear cavities within normal limits. IMPRESSION: Moderately dilated ventricles as discussed above commonly atrophy although communicating hydrocephalus could be considered. Chronic small vessel ischemic changes. No CT evidence of intracranial hemorrhage. If symptoms persist or worsen, or there is high clinical suspicion of intracranial abnormality, MRI could be performed. Dictated by: Noe Stewart M.D. on 06/01/2025 at 10:33 Approved by: Noe Stewart M.D. on 06/01/2025 at 10:37
== END ==
LOC: CT 10:16
PROVIDERS: Family Provider Family Medicine; PCP Family Medicine; Referring Provider Family Medicine; Visit Provider Family Medicine
DX: S09.90XA Unspecified injury of head, initial encounter (principal); W19.XXXA Unspecified fall, initial encounter
CPT/HCPCS: 70450

== ENCOUNTER → 2025-06-04 09:45 | Outpatient (CLI) | payer MEDICARE, OTHER, SELFPAY ==
--- NOTE | 2025-06-04 09:46 | DI.CT.S_ITS ---
PROCEDURE: CT CHEST WO CON INDICATIONS: Multiple pulmonary nodules, eval for change TECHNIQUE: Noncontrast 5 mm thick sections acquired from the pulmonary apices to the posterior costophrenic angles. 1 mm lung window, 5 mm thick coronal and sagittal and 7 mm axial MIP reformats were then acquired. For radiation dose reduction, the following was used: automated exposure control, adjustment of mA and/or kV according to patient size. COMPARISON: [facility], CT, CT CHEST WO CON, 09/23/2024, 9:52. FINDINGS: Image quality: Diagnostic. Lower Neck: No enlarged lymph nodes. Thyroid: No thyroid nodules which require sonographic follow up, per consensus guidelines. Axillae: No enlarged lymph nodes. Chest Wall: Unremarkable. Bones: Unremarkable. Lungs and Pleura: No pneumothorax or pleural effusions. Multifocal areas of scattered micronodularity and mucous plugging in the small airways, similar to prior. Waxing and waning solid pulmonary nodules are noted in both lungs, some of which have increased in size or are new, and some of which have decreased in size. Example nodules as follows: * A 5 mm nodule in the posterior right upper lobe is stable in size (3/133). * Slight decrease in size of a 5 mm nodule in the right middle lobe (3/194), previously 7 mm. * A 1.0 cm nodule in the left upper lobe (3/238) appears new from prior. Heart: Heart size is normal. No pericardial effusion. Coronary artery calcifications. Thoracic Vessels: The aorta and pulmonary arteries demonstrate normal size. Mediastinum and Amanda: No enlarged lymph nodes. Esophagus: No wall thickening. No hiatal hernia. Upper Abdomen: Visualized upper abdomen solid organs and bowel loops appear normal. IMPRESSION: Waxing waning appearance of bilateral solid pulmonary nodules, with some nodules and increased in size and/or new from prior, and others decreased in size. Similar scattered areas of micronodularity and mucous plugging of the small airways. Findings are likely related to patient's known MAC infection versus granulomatous disease. Dictated by: Razia Cool M.D. on 06/04/2025 at 14:32 Approved by: Razia Cool M.D. on 06/04/2025 at 14:46
== END ==
PROVIDERS: Family Provider Family Medicine; PCP Family Medicine; Referring Provider Internal Medicine Critical Care Medicine; Visit Provider Internal Medicine Critical Care Medicine
DX: R91.8 Other nonspecific abnormal finding of lung field (principal); I25.10 Atherosclerotic heart disease of native coronary artery without angina pectoris
CPT/HCPCS: 71250